=== PATIENT | female | born 1985 | race Caucasian/White ===

== ENCOUNTER → 2024-01-13 18:26 | Outpatient (REF) | payer OTHER, SELFPAY | LOC: MRI 3T 18:26 | PROVIDERS: ATTENDING PHYSICIAN Internal Medicine Medical Oncology; FAMILY PHYSICIAN Family Medicine | DX: C50.312 Malignant neoplasm of lower-inner quadrant of left female breast (principal); Z17.0 Estrogen receptor positive status [ER+] | CPT/HCPCS: 74183; A9575 ==

== ENCOUNTER → 2024-04-08 10:52 | Outpatient (REF) | payer OTHER, SELFPAY | LOC: RAD 10:52 | PROVIDERS: ATTENDING PHYSICIAN Family Medicine | DX: C79.9 Secondary malignant neoplasm of unspecified site (principal); M79.605 Pain in left leg | CPT/HCPCS: 72170; 73552 ==

== ENCOUNTER → 2024-05-10 15:00 | Outpatient (REF) | payer OTHER, SELFPAY | LOC: MRI 3T 15:00 | PROVIDERS: ATTENDING PHYSICIAN Student in an Organized Health Care Education/Training Program; FAMILY PHYSICIAN Family Medicine | DX: C50.312 Malignant neoplasm of lower-inner quadrant of left female breast (principal); Z17.0 Estrogen receptor positive status [ER+] | CPT/HCPCS: 74183; A9575 ==

== ENCOUNTER → 2024-05-14 12:38 | Outpatient (REF) | payer OTHER, SELFPAY | LOC: HWRAD 12:38 | PROVIDERS: ATTENDING PHYSICIAN Student in an Organized Health Care Education/Training Program; FAMILY PHYSICIAN Family Medicine | DX: C50.312 Malignant neoplasm of lower-inner quadrant of left female breast (principal); Z17.0 Estrogen receptor positive status [ER+]; C50.919 Malignant neoplasm of unspecified site of unspecified female breast; C78.7 Secondary malignant neoplasm of liver and intrahepatic bile duct | CPT/HCPCS: 71260; Q9967 ==

== ENCOUNTER → 2024-11-19 11:28 | Outpatient (REF) | payer OTHER, SELFPAY ==
[2024-11-19 12:02] LABS: % Basophils 0.1 % (0-2); % Immature Granulocytes 0.9 % (0-0.5); % Lymphocytes 2.8 % (20.5-51.1); % Monocytes 5.3 % (1.7-9.3); % Neutrophils 90.9 % (42.2-75.2); Absolute Immature Granulocytes 0.1 10^3/uL (0-0.05); Absolute Lymphocytes 0.4 10^3/uL (1.2-3.4); Absolute Monocytes 0.7 10^3/uL (0.1-0.6); Hematocrit 25.6 % (37.0-47.0); Hemoglobin 8.2 g/dL (12.0-16.0); Mean Corpuscular Volume 90.5 fL (81.0-99.0); Mean Platelet Volume 8.8 fL (7.4-10.4); Nucleated Red Blood Cells % 0 %; Platelet Count 503 10^3/uL (130-400); Red Blood Cell Count 2.83 10^6/uL (4.20-5.40); Red Cell Dist. Width 15.5 % (11.5-14.5); White Blood Cell Count 13.2 10^3/uL (4.8-10.8)
== END ==
LOC: REG 11:28
PROVIDERS: ATTENDING PHYSICIAN Radiology Radiation Oncology; FAMILY PHYSICIAN Family Medicine
DX: C79.51 Secondary malignant neoplasm of bone (principal)
CPT/HCPCS: 36415; 85025

== ENCOUNTER → 2024-11-25 12:51 | Outpatient (REF) | payer OTHER, SELFPAY ==
[2024-11-25 13:37] VITALS: BP 103/55; BP_SYST 100
[2024-11-25 14:50] VITALS: BP 104/68
[2024-11-25 16:39] LABS: Body Fluid Mononuclear 82.9 %; Body Fluid Polymorphonuclear 17.1 %; Body Fluid WBC 410 /CUMM
[2024-11-25 17:09] LABS: Body Fluid Second Tech DW
== END ==
LOC: RADI 12:51
PROVIDERS: ATTENDING PHYSICIAN Nurse Practitioner Adult Health; FAMILY PHYSICIAN Family Medicine
DX: C50.919 Malignant neoplasm of unspecified site of unspecified female breast (principal); R18.0 Malignant ascites
CPT/HCPCS: 88305; 49083; 88112; 88342; 89051

== ENCOUNTER 2024-11-30 08:06 | Inpatient (IN) | payer OTHER, SELFPAY ==
[2024-11-29] VITALS (40 sets, daily range): BP systolic 68–117; BP diastolic 58–85; BMI 21.9
[2024-11-29 13:26] LABS: ALT (SGPT) 44 U/L (0-35); AST (SGOT) 231 U/L (14-36); Albumin 3.1 g/dl (3.5-5.0); Blood Urea Nitrogen 28 mg/dl (7-17); Carbon Dioxide 23 mmol/L (22-30); Chloride 103 mmol/L (98-107); Glucose 101 mg/dl (70-99); Potassium 4.3 mmol/L (3.5-5.1); Total Protein 5.7 g/dl (6.3-8.2); eGFR > 60.00
[2024-11-29 13:45] LABS: Alkaline Phosphatase 955 U/L (38-126); Calcium 9.4 mg/dl (8.4-10.2); Sodium 134 mmol/L (135-145)
[2024-11-29 13:56] LABS: % Basophils 0.3 % (0-2); % Eosinophils 0.9 % (0-6); % Lymphocytes 3.7 % (20.5-51.1); % Monocytes 6.2 % (1.7-9.3); % Neutrophils 86.9 % (42.2-75.2); Absolute Eosinophils 0.1 10^3/uL (0-0.7); Absolute Immature Granulocytes 0.2 10^3/uL (0-0.05); Absolute Lymphocytes 0.4 10^3/uL (1.2-3.4); Absolute Monocytes 0.7 10^3/uL (0.1-0.6); Absolute Neutrophils 10.4 10^3/uL (1.4-6.5); Hematocrit 20.3 % (37.0-47.0); Hemoglobin 6.7 g/dL (12.0-16.0); Mean Corpuscular Hgb 29.1 pg (27.0-31.0); Mean Corpuscular Volume 88.3 fL (81.0-99.0); Mean Platelet Volume 8.5 fL (7.4-10.4); Nucleated Red Blood Cells % 0.4 %; Platelet Count 243 10^3/uL (130-400); Red Cell Dist. Width 15.5 % (11.5-14.5)
--- NOTE | 2024-11-29 14:44 | ED.GENMED ---
History of Present Illness
<Jennifer Mora PA-C - Last Filed: 11/29/24 21:09>
General
Chief Complaint: Abnormal Lab Value
Source: patient
Exam Limitations: none
Time Seen by Provider: 11/29/24 14:29
History of Present Illness
History of Present Illness:
38yoF with a history of metastatic breast cancer presenting for evaluation of anemia seen on outpatient labs. She follows Dr. Agustin, [facility]. Patient completed radiation treatment last week to her pelvis and L leg. She was scheduled to
start chemotherapy today. She had blood work done prior to the chemotherapy and her hemoglobin was 7.1. She was called and told to go to the ED for evaluation. Last blood work prior to this was on 11/15/2024 and hemoglobin was 8.9 at that time.
Patient denies any hematochezia or melena. She states she feels fatigued and exhausted. Patient also complains of abdominal distention and had a paracentesis performed 3 days ago for the first time.
Past History
<Jennifer Mora PA-C - Last Filed: 11/29/24 21:09>
Past History
ED Past Medical History: Cancer (Rectal CA, Left breast CA, Mets to liver ) and Other (Ovarian cysts,Headaches, IBS, UTI, )
ED Past Surgical History: Appendectomy, Bowel resection (Colostomy with reversal, Colon resection) and Gynecological (Ovarian cyst rupture, Hyserectomy)
Social History
Tobacco: Non-smoker
Alcohol: None
Drug: None
Personal:
Living: with family
Employment: Employed
Family History
Family History: Negative Hypertension or CAD
Phy Exam
<Jennifer Mora PA-C - Last Filed: 11/29/24 21:09>
Physical Exam
Physical Exam:
Chronically ill appearing female
General Physical Exam
General Presentation: no apparent distress
General Skin: warm, dry and pale
General Habitus: failure to thrive
General Mental: alert
ENT Exam
ENT Exam: normocephalic
Cardiovascular Exam
Cardiovascular Exam: regular rate/rhythm
Pulmonary Exam
Pulmonary Exam: lungs clear, no respiratory distress, no rales, no crackles, no rhonchi and no wheezing
Gastrointestinal Exam
Gastrointestinal Exam: other (Abdomen distended with ascites)
Neurological Exam
Neurological Exam: alert
[place] Coma Scale
Eye Opening: Spontaneous
Verbal Response: Oriented
Motor Response: Obeys Commands
GCS Total Score: 15
Skin Exam
Skin Exam: warm/dry and pallor
Psychiatric Exam
Psychiatric Exam: normal mood/affect
Course
<Jennifer Mora PA-C - Last Filed: 11/29/24 21:09>
Orders/Labs/Results
Orders:
Orders
11/29/24 13:01
Type+Screen Urgent
Complete Blood Count/With Diff Urgent
Comprehensive Metabolic Panel Urgent
11/29/24 15:09
Blood Bank Products [* Blood Bank Products] Urgent
Blood Bank Products: *Packed RBC Leuko(PRBC's)
Quantity: 2
Transfuse Today: Yes
Reason: Anemia
11/29/24 17:16
Cyclobenzaprine HCl [Flexeril] 10 mg PO NOW STA
Ketorolac [Toradol] 15 mg IV NOW STA
11/29/24 17:46
HYDROmorphone [Dilaudid] 1 mg IV NOW STA
11/29/24 18:41
Docusate W/Senna [Senokot-S] 2 tablet PO NOW STA
Gabapentin [Neurontin] 300 mg PO NOW STA
HYDROmorphone [Dilaudid] 6 mg PO NOW STA
Ketorolac [Toradol] 15 mg IV NOW STA
11/29/24 20:18
Lidocaine [Lidocaine 4% Patch] 1 patch TOPICAL ONCE ONE
Apply Lidocaine patch(s) to:: R flank
11/29/24 20:21
Morphine Sulfate 6 mg IV NOW STA
Abnormal Lab Results
11/29/24
13:01
WBC 12.0 H 10^3/uL
(4.8-10.8)
RBC 2.30 L 10^6/uL
(4.20-5.40)
Hgb 6.7 L* g/dL
(12.0-16.0)
Hct 20.3 L* %
(37.0-47.0)
RDW 15.5 H %
(11.5-14.5)
Abs Immat Gran (auto) 0.2 H 10^3/uL
(0-0.05)
Absolute Neuts (auto) 10.4 H 10^3/uL
(1.4-6.5)
Absolute Lymphs (auto) 0.4 L 10^3/uL
(1.2-3.4)
Absolute Monos (auto) 0.7 H 10^3/uL
(0.1-0.6)
Immature Gran % 2.0 H %
(0-0.5)
Neutrophils % 86.9 H %
(42.2-75.2)
Lymphocytes % 3.7 L %
(20.5-51.1)
Sodium 134 L mmol/L
(135-145)
BUN 28 H mg/dl
(7-17)
Glucose 101 H mg/dl
(70-99)
AST 231 H U/L
(14-36)
ALT 44 H U/L
(0-35)
Alkaline Phosphatase 955 H U/L
(38-126)
Total Protein 5.7 L g/dl
(6.3-8.2)
Albumin 3.1 L g/dl
(3.5-5.0)
Crossmatch IS Only See Detail
11/29/24 13:01
11/29/24 13:01
Vital Signs
Initial and Last Documented VS:
Initial Vital Signs
Temp Pulse Resp BP Pulse Ox
98.5 F 102 19 92/58 100
11/29/24 12:27 11/29/24 12:27 11/29/24 12:27 11/29/24 12:27 11/29/24 12:27
Last Documented Vital Signs
Temp Pulse Resp BP Pulse Ox
98.0 F 66 18 117/75 97
11/29/24 20:53 11/29/24 20:53 11/29/24 20:53 11/29/24 20:53 11/29/24 20:30
<Leeann Goode MD - Last Filed: 11/29/24 17:26>
Orders/Labs/Results
Orders:
Orders
11/29/24 13:01
Type+Screen Urgent
Complete Blood Count/With Diff Urgent
Comprehensive Metabolic Panel Urgent
11/29/24 15:09
Blood Bank Products [* Blood Bank Products] Urgent
Blood Bank Products: *Packed RBC Leuko(PRBC's)
Quantity: 2
Transfuse Today: Yes
Reason: Anemia
11/29/24 17:16
Cyclobenzaprine HCl [Flexeril] 10 mg PO NOW STA
Ketorolac [Toradol] 15 mg IV NOW STA
11/29/24 17:46
HYDROmorphone [Dilaudid] 1 mg IV NOW STA
11/29/24 18:41
Docusate W/Senna [Senokot-S] 2 tablet PO NOW STA
Gabapentin [Neurontin] 300 mg PO NOW STA
HYDROmorphone [Dilaudid] 6 mg PO NOW STA
Ketorolac [Toradol] 15 mg IV NOW STA
11/29/24 20:18
Lidocaine [Lidocaine 4% Patch] 1 patch TOPICAL ONCE ONE
Apply Lidocaine patch(s) to:: R flank
11/29/24 20:21
Morphine Sulfate 6 mg IV NOW STA
Abnormal Lab Results
11/29/24
13:01
WBC 12.0 H 10^3/uL
(4.8-10.8)
RBC 2.30 L 10^6/uL
(4.20-5.40)
Hgb 6.7 L* g/dL
(12.0-16.0)
Hct 20.3 L* %
(37.0-47.0)
RDW 15.5 H %
(11.5-14.5)
Abs Immat Gran (auto) 0.2 H 10^3/uL
(0-0.05)
Absolute Neuts (auto) 10.4 H 10^3/uL
(1.4-6.5)
Absolute Lymphs (auto) 0.4 L 10^3/uL
(1.2-3.4)
Absolute Monos (auto) 0.7 H 10^3/uL
(0.1-0.6)
Immature Gran % 2.0 H %
(0-0.5)
Neutrophils % 86.9 H %
(42.2-75.2)
Lymphocytes % 3.7 L %
(20.5-51.1)
Sodium 134 L mmol/L
(135-145)
BUN 28 H mg/dl
(7-17)
Glucose 101 H mg/dl
(70-99)
AST 231 H U/L
(14-36)
ALT 44 H U/L
(0-35)
Alkaline Phosphatase 955 H U/L
(38-126)
Total Protein 5.7 L g/dl
(6.3-8.2)
Albumin 3.1 L g/dl
(3.5-5.0)
Crossmatch IS Only See Detail
11/29/24 13:01
11/29/24 13:01
Vital Signs
Initial and Last Documented VS:
Initial Vital Signs
Temp Pulse Resp BP Pulse Ox
98.5 F 102 19 92/58 100
11/29/24 12:27 11/29/24 12:27 11/29/24 12:27 11/29/24 12:27 11/29/24 12:27
Last Documented Vital Signs
Temp Pulse Resp BP Pulse Ox
98.0 F 66 18 117/75 97
11/29/24 20:53 11/29/24 20:53 11/29/24 20:53 11/29/24 20:53 11/29/24 20:30
<Jennifer Mora PA-C - Last Filed: 11/29/24 21:09>
MDM/Problems Addressed
Differential Diagnosis Includes:
38yoF here for worsening anemia on outpatient labs. Hx of metastatic breast cancer followed by [facility]. Hb 7.1 on outpatient labs today. Prior baseline around 9. Denies hematochezia/melena. C/o severe fatigue. BP 92/58 in triage but normal
during my exam. She is chronically ill appearing and pale. Abdomen is distended and she has a history of ascites. Differential diagnosis includes but is not limited to: Anemia of chronic disease, anemia related to malignancy, doubt GI bleed
Repeat labs obtained in triage and hemoglobin is 6.7. I called and spoke with patient's oncologist via phone who is requesting 2 units PRBCs for transfusion. Consent obtained and transfusions ordered.
<Jennifer Mora PA-C - Last Filed: 11/29/24 21:09>
*Critical Care Note
Total Time (30-74mins, 75-104mins- exclusive of procedures): Not Applicable
<Jennifer Mora PA-C - Last Filed: 11/29/24 21:09>
Update Note
Update Note:
Patient tolerated transfusions well without any adverse reactions. Patient complaining of severe right flank pain throughout ED stay. states this is chronic for her related to liver metastases. She follows with [facility] and is
on multiple pain medications at home including fentanyl patches, Dilaudid 6-8 mg Q4 PRN, gabapentin, Aleve, and dexamethasone. Patient given multiple rounds of pain medications without any relief. She is requesting admission for pain control which
is reasonable. Patient also inquiring about repeat paracentesis. Will admit for further management.
ED Attending Note
<Jennifer Mora PA-C - Last Filed: 11/29/24 21:09>
-
Portions of this chart may have been created with voice recognition software.� Occasional wrong word or��sound alike� substitutions may have occurred due to the inherent limitations of voice recognition software.
<Leeann Goode MD - Last Filed: 11/29/24 17:26>
ED Attending Note
Patient seen and examined by attending physician: Yes
I performed the substantive portion of visit, reviewed & personally made and approve the management plan that is documented in note by myself or DISHA.: Yes
ED Attending Note:
38-year-old female presents emergency department after noted to be particularly anemic while getting 3 cancer treatment evaluation. She was referred to the ED for a transfusion. Our PA discussed with her attending and recommendation is 2 units of
blood and discharge. Patient is not in acute distress, pulse ox within normal, etc. No active bleeding reported. Patient is awake alert. She does have baseline abdominal distention and reports pain in the 'liver' area that radiates up to her
right anterior lower chest. She is taking medications through palliative care service for the symptoms and we are continuing them here.
Discharge Plan
Departure
Patient Disposition: Admit
Date of Disposition: 11/29/24
Time of Disposition: 21:02
Presentation/result/management discussed w/ accepting MD/DO: Hospitalist
Discharge Problem:
Intractable pain, Anemia, Abdominal ascites
Prescriptions:
No Action
hydroxyzine HCl 25 MG tablet
12.5 mg PO TID PRN (Reason: itching) Qty: 10 0RF
olanzapine 5 mg Tablet
5 mg PO HS
dexamethasone 4 mg Tablet
4 mg PO DAILY
Patient Comments:
on a taper dose
gabapentin 300 mg Capsule
300 mg PO TID PRN (Reason: pain)
fentanyl 37.5 mcg/hour Patch 72 Hour
1 patch TRANSDERMAL Q72H
hydrocodone-acetaminophen 1 TABLET tablet
1 tab PO Q4HPRN PRN (Reason: pain>11/04) Qty: 7 0RF
Rx Instructions:
take with stool softener
Referrals:
Vignesh Kraus MD [Family Provider] -
Interventions
Interventions:
*Risk Screen - Suicide Last Done: 11/29/24 12:29
*General Assessment Last Done: 11/29/24 12:29
*Neglect/Abuse Screening Last Done: 11/29/24 12:29
*ED- Fall Risk Assessment Last Done: 11/29/24 15:24
*ED COVID-19 Vaccine History Last Done: 11/29/24 15:24
Discharge Date and Time
Print Language: CENTRAL AFRICAN
[2024-11-29] MEDS: TORADOL 15 MG IV ×2 (17:21→18:52)
[2024-11-29] MEDS: FLEXERIL 10 MG PO (17:21)
[2024-11-29] MEDS: DILAUDID 1 MG IV (17:56)
[2024-11-29] MEDS: DILAUDID 6 MG PO (18:53)
[2024-11-29] MEDS: NEURONTIN 300 MG PO (18:54)
[2024-11-29] MEDS: SENOKOT-S 2 TABLET PO (18:54)
[2024-11-29] MEDS: LIDOCAINE 4% PATCH 1 PATCH TOPICAL (20:31)
[2024-11-29] MEDS: MORPHINE SULFATE 6 MG IV (20:35)
--- NOTE | 2024-11-29 22:44 | HPS.HSE ---
Family Physician
-
Family Physician: Vignesh Kraus
Chief Complaint
-
Abd Pain
History of Present Illness
Patient is a 38y F with PMH significant for metastatic breast cancer followed at [facility] who presents to ED for PRBC transfusion based on outpatient labs. Patient was scheduled to begin new infusion therapy this AM at [facility]. She was notified that her
blood counts were too low to undergo the infusion and was advised to present to the ED for blood transfusion.
Patient presented to ED and received 2 units of PRBCs. She was having pain in the RUQ / R flank area - which she notes is her chronic pain.
Pain was difficult to control in the ED and patient is referred for hospitalization for continued symptom control.
Patient has chronic malignant ascites for which she underwent paracentesis (for 1500cc) on 11/25/24. Patient states that she received temporary relief after paracentesis; however, abdominal distention and discomfort had returned by later that evening.
Medical History
Past Medical History
Past Medical History: Reports Other
Additional Past Medical History:
Metastatic Breast Cancer
Malignant Ascites
Rectosigmoid Cancer
Past Surgical History: Reports Other
Additional Past Surgical History:
Sigmoid Resection / Colostomy
Colostomy Reversal
Left Lumpectomy
Port Placement
Social History
Tobacco: Non-smoker
Alcohol: None
Drug: None
Family History
Family History: Not pertinent
Allergies / Home Medications
Allergies reflects when Allergies were last updated in [facility].
Home Medications with original date entered in [facility]
Allergy/Medication List:
Allergies
Allergy/AdvReac Type Severity Reaction Status Date / Time
fluorouracil Allergy Anaphylaxis Verified 10/16/22 18:03
paclitaxel [From Taxol] Allergy Rash Verified 10/16/22 18:03
Home Medications
dexamethasone 4 mg tablet 4 mg PO DAILY 11/25/24
fentanyl 37.5 mcg/hour transdermal patch 1 patch transdermal Q72H 11/25/24
gabapentin 300 mg capsule 300 mg PO TIDPRN PRN mild pain 11/25/24
olanzapine 5 mg tablet 2.5 mg PO HS 11/25/24
acetaminophen 500 mg tablet (Tylenol Extra Strength) 1,000 mg PO QIDPRN PRN mild pain 11/29/24
astaxanthin 4 mg capsule 4 mg PO DAILY 11/29/24
cyclobenzaprine 10 mg tablet 10 mg PO TID 11/29/24
docusate sodium 100 mg capsule (Colace) 100 mg PO DAILY 11/29/24
hydromorphone 4 mg tablet 6 - 8 mg PO Q4HPRN PRN severe pain 11/29/24
naproxen sodium 220 mg tablet (Aleve) 220 mg PO BIDPRN PRN mild pain 11/29/24
ondansetron HCl 8 mg tablet 8 mg PO Q8HPRN PRN nausea 11/29/24
oxycodone 5 mg tablet 5 mg PO Q6HPRN PRN severe pains 11/29/24
prochlorperazine maleate 10 mg tablet (Compazine) 10 mg PO BIDPRN PRN nausea 11/29/24
sennosides 8.6 mg tablet (senna) 8.6 mg PO BIDPRN PRN constipation 11/29/24
sumatriptan succinate 100 mg tablet (Imitrex) 0 mg PO .COMPLEX 11/29/24
therapeutic multivitamin 1 tab PO DAILY 11/29/24
tramadol 50 mg tablet 50 mg PO Q6HPRN PRN mpderate pain 11/29/24
Review of Systems
-
History Source: Patient
A 12 point ROS was completed and negative except as noted: Yes
Constitutional: Denies Fever or Chills
Respiratory: Denies Cough or Trouble Breathing
Cardiac: Denies Chest Pain or Palpitations
Abdomen/GI: Reports Abdominal Pain and Constipated; Denies Nausea, Vomiting or Diarrhea
: Reports Flank Pain; Denies Dysuria
Musculoskeletal: Denies Joint Pain or Edema
Neurological: Denies Dizzy or Headache
Psych: Denies Depression or Anxiety
Physical Exam
Vital Signs
Vital Signs
Temp Pulse Resp BP Pulse Ox
98.0 F 66 18 117/75 97
11/29/24 20:53 11/29/24 20:53 11/29/24 20:53 11/29/24 20:53 11/29/24 20:30
Physical Exam
General: Other (38y chronically ill-appearing F. Not in acute distress.)
HEENT: Moist mucous membranes and PERRLA
Respiratory: Other (Decreased at bases - otherwise clear.)
Cardiac: S1/S2 and Regular Rhythm; No Murmur
GI: Other (Abdomen is distended and tense. Palpable hepatomegaly / infiltration.)
Musculoskeletal: No Clubbing, No Cyanosis and No Edema
Neuro: AO x 3
Laboratory Results
-
11/29/24 13:01
11/29/24 13:01
Laboratory Results
Total Bilirubin 1.0 mg/dl (0.2-1.3) 11/29/24 13:01
AST 231 U/L (14-36) H 11/29/24 13:01
ALT 44 U/L (0-35) H 11/29/24 13:01
Alkaline Phosphatase 955 U/L (38-126) H 11/29/24 13:01
Impression/Plan
-
A/P: Patient is a 38y F with PMH significant for metastatic breast cancer who presents to ED for transfusion and had poorly controlled pain in the ED.
Metastatic Breast Cancer
Uncontrolled Pain of Malignancy
- Observe overnight for further evaluation and treatment.
- Continue efforts at pain management.
- Adjust med regimen as needed.
- Follow-up with Oncology at [facility] after discharge.
Anemia of Chronic Disease / Malignancy
- Hgb = 6.7 today compared to 8.2 last month and baseline of 12-13 prior to that.
- Received 2 units of PRBCs in the ED.
- Follow-up repeat H&H and consider additional transfusion if needed.
- Follow-up with Heme / Onc as noted above.
Hepatic Metastases
Peritoneal Carcinomatosis
Malignant Ascites
- s/p paracentesis on 11/25 for 1500cc of fluid.
- Increased abdominal distention / pain since that time.
- Will ask IR to re-evaluate - though not clear that significant ascites present for removal.
DVT Prophylaxis: Lovenox
Code Status: Full
[2024-11-30] VITALS: BP 103/65
[2024-11-30] MEDS: DURAGESIC 25 MCG/HR PATCH 1 PATCH TRANSDERM (01:01)
[2024-11-30] MEDS: DURAGESIC 12 MCG/HR PATCH 1 PATCH TRANSDERM (01:02)
[2024-11-30] MEDS: DILAUDID 6 MG PO ×2 (01:42→14:25)
[2024-11-30] MEDS: ZYPREXA 2.5 MG PO (01:42)
[2024-11-30] MEDS: FLEXERIL 10 MG PO ×2 (01:42→11:49)
[2024-11-30 02:00] VITALS: BP 110/70
[2024-11-30 04:24] VITALS: BMI 20.8
[2024-11-30 04:25] VITALS: BP 105/65
[2024-11-30] MEDS: SENOKOT 17.2 MG PO (06:02)
[2024-11-30] MEDS: MORPHINE SULFATE 2 MG IV ×2 (06:04→11:49)
[2024-11-30 07:00] VITALS: BP 100/65
--- NOTE | 2024-11-30 08:41 | VNURNOTE ---
Chart reviewed. Patient is current with [facility] nursing. Will continue to follow hospital course and DC plans.
--- NOTE | 2024-11-30 08:58 | W.PN.HOSP.TC ---
Today's Communication/Plan
-
dc
Assessment / Plan
Assessment / Plan
Physical Exam
General: Other (38y chronically ill-appearing F. Not in acute distress.)
HEENT: Moist mucous membranes and PERRLA
Respiratory: Other (Decreased at bases - otherwise clear.)
Cardiac: S1/S2 and Regular Rhythm; No Murmur
GI: Other (Abdomen is distended and tense. Palpable hepatomegaly / infiltration.)
Musculoskeletal: No Clubbing, No Cyanosis and No Edema
Neuro: AO x 3
psych: calm
Patient is a 38y F with PMH significant for metastatic breast cancer who presents to ED for transfusion and had poorly controlled pain in the ED.
Metastatic Breast Cancer
Uncontrolled Pain of Malignancy
- Continue efforts at pain management. She has regimen that is supervised by palliative care at home. Patient and wanted to keep current home pain management. Patient reported the pain improved after paracentesis
- They met with [facility] specialist Dr. Villalobos as a second opinion. Patient has been given the option to do outpatient follow-up after obtaining records.
- Adjust med regimen as needed.
- Follow-up with Oncology at [facility] after discharge. Patient and her wanted to go home after paracentesis. Patient has appointment tomorrow December 01 at [place] with oncology.
Currently palliative care to control her medications.
Anemia of Chronic Disease / Malignancy
- Hgb = 6.7 today compared to 8.2 last month and baseline of 12-13 prior to that.
- Received 2 units of PRBCs in the ED. rectal exam, no bleeding
- Follow-up repeat H&H and consider additional transfusion if needed.
- F no evidence of rectal or GI bleed
# Patient reported blood in underwear. Upon examination of pelvic exam and rectal exam, no evidence of bleeding. Noted half centimeter of skin abrasion/wound on right labia, possibly from shaving, healing well, probably causing on and off spotting
from rubbing with diaper.
Exam done in a private setting with female nurse help
Hepatic Metastases
Peritoneal Carcinomatosis
Malignant Ascites
- s/p paracentesis on 11/25 for 1500cc of fluid. Status post another paracentesis of 1700 mL of ascites fluid 11/30/24
# Hyponatremia, resolved. No confusion. Following commands
# Leukocytosis, reactive, no fever. Resolved
DVT Prophylaxis: Lovenox
Code Status: Full
total discharge time spent to see the patient, examine the patient, review data and lab result, discuss discharge plan with patient, , nursing staff around 65 minutes
Anticipated Discharge: Today
Subjective/Interval History
-
Date of Service: November 30, 2024
No chest pain
No sob
Abdominal discomfort is better after paracentesis
Objective Data
-
Labs:
Laboratory Results
11/30/24
07:57
WBC Pending
Hgb Pending
Hct Pending
Plt Count Pending
Sodium Pending
Potassium Pending
Chloride Pending
Carbon Dioxide Pending
BUN Pending
Creatinine Pending
Glucose Pending
Calcium Pending
Total Bilirubin Pending
AST Pending
ALT Pending
Alkaline Phosphatase Pending
Vital Signs:
Vital Signs
Temp Pulse Resp BP Pulse Ox
98.4 F 84 18 100/65 95
11/30/24 07:00 11/30/24 07:00 11/30/24 07:00 11/30/24 07:00 11/30/24 07:00
I&O
11/29/24 11/30/24 12/01/24
06:59 06:59 06:59
Intake Total 500 / 500
Balance 500 / 500
[2024-11-30] MEDS: NSS (PRESERVATIVE FREE) 10 ML IV (09:14)
[2024-11-30] MEDS: TORADOL 15 MG IV ×2 (09:15→15:37)
[2024-11-30] MEDS: PROTONIX IV 40 MG IV (09:15)
[2024-11-30] MEDS: NEURONTIN 300 MG PO ×2 (09:16→14:25)
[2024-11-30] MEDS: DECADRON 4 MG PO (09:16)
[2024-11-30] MEDS: COLACE 100 MG PO (09:16)
[2024-11-30 09:18] LABS: Hematocrit 27.8 % (37.0-47.0); Hemoglobin 9.2 g/dL (12.0-16.0); Mean Corp Hgb Conc. 33.1 g/dL (33.0-37.0); Mean Corpuscular Hgb 28.2 pg (27.0-31.0); Mean Corpuscular Volume 85.3 fL (81.0-99.0); Mean Platelet Volume 8.7 fL (7.4-10.4); Platelet Count 262 10^3/uL (130-400); Red Blood Cell Count 3.26 10^6/uL (4.20-5.40); Red Cell Dist. Width 17.3 % (11.5-14.5); White Blood Cell Count 10.5 10^3/uL (4.8-10.8)
[2024-11-30 09:21] LABS: ALT (SGPT) 42 U/L (0-35); AST (SGOT) 217 U/L (14-36); Albumin 3.2 g/dl (3.5-5.0); Alkaline Phosphatase 856 U/L (38-126); Blood Urea Nitrogen 22 mg/dl (7-17); Calcium 9.4 mg/dl (8.4-10.2); Carbon Dioxide 23 mmol/L (22-30); Chloride 105 mmol/L (98-107); Direct Bilirubin 0.9 mg/dl (0.0-0.4); Estimated Creatinine Clearance 113 ml/min; Glucose 90 mg/dl (70-99); Potassium 4.3 mmol/L (3.5-5.1); Sodium 135 mmol/L (135-145); Total Bilirubin 1.2 mg/dl (0.2-1.3); Total Protein 5.9 g/dl (6.3-8.2); eGFR > 60.00
[2024-11-30] MEDS: FLEXERIL PO (10:36)
--- NOTE | 2024-11-30 11:25 | CON.ONC ---
Addendum entered and electronically signed by Gagan Villalobos MD 11/30/24 11:55:
Examination was done but not reported. She seems clearheaded and fully oriented. The chest is clear. Heart tones are unremarkable. The abdomen is very distended, with pronounced hepatomegaly. The abdomen is tympanitic. There is no tenderness.
She has +1 edema bilaterally. Neurologic exam is grossly intact.
Original Note:
Impression
Impression
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
Ascites due to cancer
Anemia presumably due to recent radiation therapy to the pelvis and femur
History of rectal cancer
Plan
Plan
I reviewed her pain management regimen. It is a little confusing to me, sometimes 1 medication works for a week, then it does not, then another medication works and then stops working as well. She has gone up and down on her fentanyl patch. She
is seen by palliative care. In addition, she does various bowel regimens, with 1 regimen working well for a while, then another working for a while, then back to the original 1. I believe that her pain and bowel problems would be best managed in
conjunction with palliative care as an outpatient. I do not believe we need to keep her here for pain management.
Her hemoglobin is back up following transfusion. There is no evidence of GI blood loss. I believe that her anemia is indeed due to very large recent doses of radiation therapy to vital bone marrow organs. Will await interventional radiology
evaluation of her protuberant abdomen, some of this is massive hepatomegaly, I am not sure how much more fluid is left behind.
She inquired about a second opinion from [facility]. I told her we would be happy to do so, but I cannot do that at this time without full her records. I offered that she could get some of her treatments appears well, and she and her
will discuss this with her oncologist at [facility] tomorrow. I have no objections to discharge.
Patient History
History of Present Illness
Consult from the hospitalist service regarding breast cancer
This 38-year-old woman was admitted following transfusion in the emergency room. She was due to have a treatment with gemcitabine at [facility], but was told her hemoglobin, of about 6 g, was too low. She did get 2 units of packed
cells. She was still having some abdominal discomfort and was admitted for continued observation and possible adjustment of her pain medications. Her pain is relatively stable at this time. She employs various medications including ibuprofen,
Aleve, oxycodone, Dilaudid, as well as a fentanyl patch, currently at 37.5 mg. It was decreased from 50 mg a week ago due to problems that she is scribed to the increased dose of tremors in her hands.
She has been under treatment now for several years at the [facility] for breast cancer. Her last treatment by them was in July of this year, I am not certain exactly what that medication was. She was due to receive gemcitabine
today. She received unknown medications at an alternative clinic in [place] in late August and early September.
She admits to profound loss of muscle mass, her weight is difficult to determine due to apparent ascites and edema. She gets around with a wheelchair or crutches. She recently had a josh placed in her left femur as well as radiation therapy there
and to the pelvis.
Past-Medical/Surgical History
History of rectal cancer, treated surgically and with irinotecan based chemotherapy and radiation
More recent history of breast cancer, initially HER2 negative, now HER2 positive, status post various treatment regimens, including alternative therapy in [place] in September of this year.
Patient Medication
�Medication �Instructions �Recorded �Confirmed �Last Taken �Type
dexamethasone 4 mg tablet 4 mg PO DAILY Anti-Inflammatory 11/25/24 11/29/24 11/29/24 History
fentanyl 37.5 mcg/hour transdermal 1 patch transdermal Q72H Pain 11/25/24 11/29/24 11/29/24 History
patch
gabapentin 300 mg capsule 300 mg PO TIDPRN PRN mild pain 11/25/24 11/29/24 11/29/24 History
olanzapine 5 mg tablet 2.5 mg PO HS Mental Health/Anxiety 11/25/24 11/29/24 11/28/24 History
acetaminophen 500 mg tablet 1,000 mg PO QIDPRN PRN mild pain 11/29/24 11/29/24 11/29/24 History
(Tylenol Extra Strength)
astaxanthin 4 mg capsule 4 mg PO DAILY Supplement 11/29/24 11/29/24 Unknown History
cyclobenzaprine 10 mg tablet 10 mg PO TID Muscle Spasms 11/29/24 11/29/24 11/29/24 History
docusate sodium 100 mg capsule 100 mg PO DAILY Gastrointestinal 11/29/24 11/29/24 11/29/24 History
(Colace) Issue
hydromorphone 4 mg tablet 6 - 8 mg PO Q4HPRN PRN severe pain 11/29/24 11/29/24 Unknown History
naproxen sodium 220 mg tablet 220 mg PO BIDPRN PRN mild pain 11/29/24 11/29/24 11/29/24 History
(Aleve)
ondansetron HCl 8 mg tablet 8 mg PO Q8HPRN PRN nausea 11/29/24 11/29/24 Unknown History
oxycodone 5 mg tablet 5 mg PO Q6HPRN PRN severe pains 11/29/24 11/29/24 Unknown History
prochlorperazine maleate 10 mg 10 mg PO BIDPRN PRN nausea 11/29/24 11/29/24 Unknown History
tablet (Compazine)
sennosides 8.6 mg tablet (senna) 8.6 mg PO BIDPRN PRN constipation 11/29/24 11/29/24 Unknown History
sumatriptan succinate 100 mg 0 mg PO .COMPLEX Pain 11/29/24 11/29/24 Unknown History
tablet (Imitrex)
therapeutic multivitamin 1 tab PO DAILY Pain 11/29/24 11/29/24 Unknown History
tramadol 50 mg tablet 50 mg PO Q6HPRN PRN mpderate pain 11/29/24 11/29/24 Unknown History
Active Medications
Generic Name Dose Route Start Last Admin
Trade Name Freq PRN Reason Stop Dose Admin
Acetaminophen 650 mg 11/29/24 23:50
Acetaminophen 325 Mg Tablet PO 12/27/24 23:49
Q4HPRN PRN
Mild Pain / Temp > 101
Cyclobenzaprine HCl 10 mg 11/30/24 02:00 11/30/24 10:36
Cyclobenzaprine 10 Mg Tablet PO 12/28/24 01:59 Not Given
TID@0000,0800,1600 WIN
Dexamethasone 4 mg 11/30/24 08:00 11/30/24 09:16
Dexamethasone 4 Mg Tablet PO 12/28/24 07:59 4 mg
DAILY WIN Administration
Docusate Sodium 100 mg 11/30/24 08:00 11/30/24 09:16
Docusate Sodium 100 Mg Capsule PO 12/28/24 07:59 100 mg
BID WIN Administration
Enoxaparin Sodium 40 mg 11/30/24 18:00
Enoxaparin Sodium 40 Mg/0.4 Ml Syringe SC 12/28/24 17:59
QPM WIN
Fentanyl 1 patch 11/30/24 00:00 11/30/24 01:01
Fentanyl 25 Mcg/Hr Patch TRANSDERM 12/14/24 00:00 1 patch
Q72H WIN Administration
Fentanyl 1 patch 11/30/24 01:00 11/30/24 01:02
Fentanyl 12 Mcg/Hr Patch TRANSDERM 12/14/24 00:59 1 patch
Q72H WIN Administration
Gabapentin 300 mg 11/29/24 23:50 11/30/24 09:16
Gabapentin 300 Mg Capsule PO 12/27/24 23:49 300 mg
TIDPRN PRN Administration
mild pain
Heparin Sodium (Porcine) 500 unit 11/30/24 08:15
Heparin Flush Pf (100 Unit/Ml) 5 Ml Syringe IV 12/28/24 08:14
PER PROTOCOL WIN
Hydromorphone HCl 6 mg 11/29/24 23:50 11/30/24 01:42
Hydromorphone 2 Mg Tablet PO 12/13/24 23:49 6 mg
Q4HPRN PRN Administration
moderate pain
Ketorolac Tromethamine 15 mg 11/30/24 08:20 11/30/24 09:15
Ketorolac 15 Mg/Ml Injection IV 12/05/24 08:19 15 mg
Q6HPRN PRN Administration
mod to severe pain
Morphine Sulfate 2 mg 11/29/24 23:50 11/30/24 06:04
Morphine 2 Mg/Ml Syringe IV 12/13/24 23:49 2 mg
Q4HPRN PRN Administration
Severe Pain
Olanzapine 2.5 mg 11/30/24 02:00 11/30/24 01:42
Olanzapine 2.5 Mg Tablet PO 12/28/24 01:59 2.5 mg
HS WIN Administration
Ondansetron HCl 4 mg 11/29/24 23:50
Ondansetron 4 Mg/2 Ml Vial IV 12/27/24 23:49
Q6HPRN PRN
nausea and vomiting
Pantoprazole Sodium 40 mg 11/30/24 08:00 11/30/24 09:15
Pantoprazole Sodium 40 Mg/10 Ml Vial IV 12/28/24 07:59 40 mg
DAILY WIN Administration
Patch Removal 0 patch 11/30/24 00:00
Remove Fentanyl Patch REMOVE 12/14/24 00:00
Q72H WIN
Patch Removal 0 patch 11/30/24 00:00
Remove Fentanyl Patch REMOVE 12/14/24 00:00
Q72H WIN
Polyethylene Glycol 17 grams 11/29/24 23:50
Polyethylene Glycol Powder 17 Grams Packet PO 12/27/24 23:49
DAILY PRN
Constipation
Sennosides 17.2 mg 11/30/24 02:00 11/30/24 06:02
Sennosides (Senokot) 8.6 Mg Tablet PO 12/28/24 01:59 17.2 mg
HS WIN Administration
Sodium Chloride 0 flush 11/29/24 23:00
Sodium Chloride 0.9% (Flush) Syringe IV 12/27/24 22:59
PER PROTOCOL WIN
Sodium Chloride 10 ml 11/30/24 08:00 11/30/24 09:14
Sodium Chloride 0.9% (Preservative Free) 10 Ml Vial IV 12/28/24 07:59 10 ml
DAILY WIN Administration
Sumatriptan Succinate 100 mg 11/29/24 23:50
Sumatriptan (Imitrex) 50 Mg Tablet PO 12/27/24 23:49
DAILYPRN PRN
MIGRAINE
Review of Systems
-
All Other Systems: Reviewed and Negative
Physical Exam
Labs
Lab Results
WBC 10.5 10^3/uL (4.8-10.8) 11/30/24 07:57
RBC 3.26 10^6/uL (4.20-5.40) L 11/30/24 07:57
Hgb 9.2 g/dL (12.0-16.0) L D 11/30/24 07:57
Hct 27.8 % (37.0-47.0) L 11/30/24 07:57
MCV 85.3 fL (81.0-99.0) 11/30/24 07:57
MCH 28.2 pg (27.0-31.0) 11/30/24 07:57
MCHC 33.1 g/dL (33.0-37.0) 11/30/24 07:57
RDW 17.3 % (11.5-14.5) H 11/30/24 07:57
Plt Count 262 10^3/uL (130-400) 11/30/24 07:57
MPV 8.7 fL (7.4-10.4) 11/30/24 07:57
Abs Immat Gran (auto) 0.2 10^3/uL (0-0.05) H 11/29/24 13:01
Absolute Neuts (auto) 10.4 10^3/uL (1.4-6.5) H 11/29/24 13:01
Absolute Lymphs (auto) 0.4 10^3/uL (1.2-3.4) L 11/29/24 13:01
Absolute Monos (auto) 0.7 10^3/uL (0.1-0.6) H 11/29/24 13:01
Absolute Eos (auto) 0.1 10^3/uL (0-0.7) 11/29/24 13:01
Absolute Basos (auto) 0.0 10^3/uL (0-0.2) 11/29/24 13:01
Immature Gran % 2.0 % (0-0.5) H 11/29/24 13:01
Neutrophils % 86.9 % (42.2-75.2) H 11/29/24 13:01
Lymphocytes % 3.7 % (20.5-51.1) L 11/29/24 13:01
Monocytes % 6.2 % (1.7-9.3) 11/29/24 13:01
Eosinophils % 0.9 % (0-6) 11/29/24 13:01
Basophils % 0.3 % (0-2) 11/29/24 13:01
Creatinine 0.6 mg/dL (0.6-1.0) 11/30/24 07:57
Vital Signs
Vital Signs
Temp Pulse Resp BP Pulse Ox
98.4 F 84 18 100/65 95
11/30/24 07:00 11/30/24 07:00 11/30/24 07:00 11/30/24 07:00 11/30/24 07:00
[2024-11-30 12:39] VITALS: BP 112/74; BP_SYST 87
[2024-11-30 14:47] LABS: Body Fluid WBC 305 /CUMM
[2024-11-30 14:49] LABS: Body Fluid Mononuclear 76.1 %; Body Fluid Polymorphonuclear 23.9 %
[2024-11-30 15:00] VITALS: BP 108/67
--- NOTE | 2024-11-30 15:07 | CM ---
CM reviewed chart, patient seen bedside with and friend, initial assessment completed. Patient resides with her and two children in a one story home, four steps to enter. Patient has two walkers, a wheelchair, crutches, cane, raised
toilet/ bars in bathroom. [facility] with [facility] referral. Patient confirms PCP Vignesh Kraus, pharmacy [facility]. Plan for discharge today. CM will continue to follow for all discharge planning needs.
Plan; home with family, [facility]
[2024-11-30 15:13] LABS: Body Fluid Second Tech AMA
--- NOTE | 2024-11-30 17:35 | W.DCSUMMARY ---
Discharge Summary
Discharge Data
Date of Admission: 11/29/24
Date of Discharge: 11/30/24
-
Pending Results: No
Hospital Course
38 years old female with history of rectal cancer and stage IV breast cancer with metastasis to liver and bone presented with abdominal discomfort and anemia. Patient received 2 units of blood transfusion. Patient reported pain was not controlled
with her usual pain medication regimen that included fentanyl, Flexeril, oral Dilaudid, gabapentin at home. She was taking oral steroid also. She was under care of [facility] with radiation oncology and palliative care. Patient was admitted to
the hospital and received intravenous morphine which seemed to help. She was evaluated by IR and underwent another paracentesis with improvement. Patient felt better and was able to tolerate diet. Patient and her wanted to go home because
patient had an appointment on 12/01/24 with gynecology at [facility] for further management. They also requested oncology service consult. Oncologist saw the patient and recommended outpatient follow-up if to consider second opinion. Patient remained
hemodynamically stable. Patient was discharged home in a stable condition.
Discharge Plan
-
Patient Disposition: Home (Routine Discharge)
Discharge Diagnosis/Procedures: Malignant ascites status post paracentesis
Anemia, status post transfusion of 2 units
Diet: As tolerated
Referrals:
Vignesh Kraus MD [Family Provider] -
Prescriptions:
Continued
olanzapine 5 mg Tablet
2.5 mg PO HS
dexamethasone 4 mg Tablet
4 mg PO DAILY
gabapentin 300 mg Capsule
300 mg PO TIDPRN PRN (Reason: mild pain)
fentanyl 37.5 mcg/hour Patch 72 Hour
1 patch TRANSDERMAL Q72H
Patient Comments:
due to change 11/29/24
cyclobenzaprine 10 mg Tablet
10 mg PO TID
sennosides [senna] 8.6 mg Tablet
8.6 mg PO BIDPRN PRN (Reason: constipation)
sumatriptan succinate [Imitrex] 100 mg Tablet
0 mg PO .COMPLEX
Rx Instructions:
take 1 tab at onset of headache; if no relief, may repeat 1 tab after at least 2 hrs; max = 2 tabs/24 hrs
ondansetron HCl 8 mg Tablet
8 mg PO Q8HPRN PRN (Reason: nausea)
therapeutic multivitamin Tablet
1 tab PO DAILY
prochlorperazine maleate [Compazine] 10 mg Tablet
10 mg PO BIDPRN PRN (Reason: nausea)
tramadol 50 mg Tablet
50 mg PO Q6HPRN PRN (Reason: mpderate pain)
acetaminophen [Tylenol Extra Strength] 500 mg Tablet
1,000 mg PO QIDPRN PRN (Reason: mild pain)
naproxen sodium [Aleve] 220 mg Tablet
220 mg PO BIDPRN PRN (Reason: mild pain)
docusate sodium [Colace] 100 mg Capsule
100 mg PO DAILY
hydromorphone 4 mg Tablet
6 - 8 mg PO Q4HPRN PRN (Reason: severe pain)
oxycodone 5 mg Tablet
5 mg PO Q6HPRN PRN (Reason: severe pains)
astaxanthin 4 mg Capsule
4 mg PO DAILY
Discharge Orders:
Discharge Patient (As Directed); Ordered 11/30/24
Ordered By: Erin Estrella
Discharge Date and Time
Discharge Date/Time: 11/30/24 16:32
Print Language: MAORI
== END 2024-11-30 16:32 | disposition home or self-care (01) | DRG 597 ==
LOC: 4 WEST ACU 08:06
PROVIDERS: Radiology Diagnostic Radiology; Student in an Organized Health Care Education/Training Program; ADMITTING PHYSICIAN Hospitalist; ATTENDING PHYSICIAN Internal Medicine; EMERGENCY PHYSICIAN Emergency Medicine; FAMILY PHYSICIAN Family Medicine; OTHER PHYSICIAN Internal Medicine Hematology & Oncology
PROC: 30233N1 Transfusion of Nonautologous Red Blood Cells into Peripheral Vein, Percutaneous Approach (ICD-10-PCS; 2024-11-30)
PROC: 0W9G3ZZ Drainage of Peritoneal Cavity, Percutaneous Approach (ICD-10-PCS; 2024-11-30)
DX: C50.912 Malignant neoplasm of unspecified site of left female breast (principal); D61.2 Aplastic anemia due to other external agents; C78.7 Secondary malignant neoplasm of liver and intrahepatic bile duct; C79.51 Secondary malignant neoplasm of bone; R18.0 Malignant ascites; E87.1 Hypo-osmolality and hyponatremia; D63.8 Anemia in other chronic diseases classified elsewhere; T66.XXXA Radiation sickness, unspecified, initial encounter; Y84.2 Radiological procedure and radiotherapy as the cause of abnormal reaction of the patient, or of later complication, without mention of misadventure at the time of the procedure; Z85.048 Personal history of other malignant neoplasm of rectum, rectosigmoid junction, and anus
CPT/HCPCS: 36430; 49083; 80053; 82248; 85025; 85027; 86850; 86900; 86901; 86920; 87015; 87070; 87205; 89051; 96374; 96375; 96376; 99285; P9016

== ENCOUNTER → 2024-12-03 08:36 | Outpatient (REF) | payer OTHER, SELFPAY ==
[2024-12-03 08:54] VITALS: BP 101/62; BP_SYST 60
[2024-12-03 09:30] VITALS: BP 100/60; BP_SYST 16
[2024-12-03 10:48] LABS: Body Fluid Mononuclear 22.2 %; Body Fluid Polymorphonuclear 77.8 %; Body Fluid WBC 1187 /CUMM
[2024-12-03 10:51] LABS: Body Fluid Second Tech HB
== END ==
LOC: RADI 08:36
PROVIDERS: ATTENDING PHYSICIAN Nurse Practitioner Adult Health
DX: C80.1 Malignant (primary) neoplasm, unspecified (principal); R18.0 Malignant ascites
CPT/HCPCS: 49083; 89051

== ENCOUNTER → 2024-12-06 15:40 | Outpatient (REF) | payer OTHER, SELFPAY | LOC: RAD 15:40 | PROVIDERS: ATTENDING PHYSICIAN Nurse Practitioner Adult Health; FAMILY PHYSICIAN Family Medicine | DX: R60.9 Edema, unspecified (principal); C50.919 Malignant neoplasm of unspecified site of unspecified female breast; C78.7 Secondary malignant neoplasm of liver and intrahepatic bile duct | CPT/HCPCS: 93970 ==

== ENCOUNTER → 2024-12-07 13:43 | Outpatient (REF) | payer OTHER, SELFPAY ==
[2024-12-07 13:59] VITALS: BP_SYST 81
[2024-12-07 15:22] VITALS: BP 96/55
[2024-12-07 17:08] LABS: Body Fluid Mononuclear 73.2 %; Body Fluid Polymorphonuclear 26.8 %; Body Fluid WBC 168 /CUMM
[2024-12-07 17:23] LABS: Body Fluid Second Tech FB
== END ==
LOC: RADI 13:43
PROVIDERS: ATTENDING PHYSICIAN Nurse Practitioner Adult Health; FAMILY PHYSICIAN Family Medicine
DX: R18.8 Other ascites (principal)
CPT/HCPCS: 49083; 89051

== ENCOUNTER → 2024-12-10 08:31 | Outpatient (REF) | payer OTHER, SELFPAY ==
[2024-12-10 08:45] VITALS: BP 98/84; BP_SYST 77
[2024-12-10 09:45] VITALS: BP 99/53; BP_SYST 74
[2024-12-10 10:00] VITALS: BP 99/53
[2024-12-10 11:05] LABS: Body Fluid Mononuclear 45.9 %; Body Fluid Polymorphonuclear 54.1 %; Body Fluid WBC 155 /CUMM
[2024-12-10 11:09] LABS: Body Fluid Second Tech AMA
== END ==
LOC: RADI 08:31
PROVIDERS: ATTENDING PHYSICIAN Nurse Practitioner Adult Health; FAMILY PHYSICIAN Family Medicine
DX: C80.1 Malignant (primary) neoplasm, unspecified (principal); R18.0 Malignant ascites
CPT/HCPCS: 49083; 89051

== ENCOUNTER → 2024-12-14 13:08 | Outpatient (REF) | payer OTHER, SELFPAY ==
[2024-12-14 13:26] VITALS: BP 113/77; BP_SYST 95
== END ==
LOC: RADI 13:08
PROVIDERS: ATTENDING PHYSICIAN Nurse Practitioner Adult Health; FAMILY PHYSICIAN Family Medicine
DX: R18.8 Other ascites (principal); Z53.8 Procedure and treatment not carried out for other reasons
CPT/HCPCS: 76705

== ENCOUNTER → 2024-12-17 12:06 | Outpatient (REF) | payer OTHER, SELFPAY ==
[2024-12-17 12:25] VITALS: BP 104/58; BP_SYST 102
[2024-12-17 13:05] VITALS: BP 112/66
[2024-12-17 15:24] LABS: Body Fluid WBC 57 /CUMM
[2024-12-17 15:25] LABS: Body Fluid Mononuclear 91.3 %; Body Fluid Polymorphonuclear 8.7 %
[2024-12-17 15:53] LABS: Body Fluid Second Tech FB
== END ==
LOC: RADI 12:06
PROVIDERS: ATTENDING PHYSICIAN Nurse Practitioner Adult Health
DX: C80.1 Malignant (primary) neoplasm, unspecified (principal); R18.0 Malignant ascites
CPT/HCPCS: 49083; 89051

== ENCOUNTER → 2024-12-21 13:08 | Outpatient (REF) | payer OTHER, SELFPAY ==
[2024-12-21 13:28] VITALS: BP 94/57; BP_SYST 95
[2024-12-21 14:05] VITALS: BP 116/76; BP_SYST 94
[2024-12-21 15:17] LABS: Body Fluid WBC 135 /CUMM
[2024-12-21 15:35] LABS: Body Fluid Second Tech DW
== END ==
LOC: RADI 13:08
PROVIDERS: ATTENDING PHYSICIAN Nurse Practitioner Adult Health; FAMILY PHYSICIAN Family Medicine
DX: C80.1 Malignant (primary) neoplasm, unspecified (principal); R18.0 Malignant ascites
CPT/HCPCS: 49083; 89051

== ENCOUNTER → 2024-12-24 08:34 | Outpatient (REF) | payer OTHER, SELFPAY ==
[2024-12-24 09:09] VITALS: BP 97/64; BP_SYST 108
[2024-12-24 09:22] VITALS: BP 104/60
[2024-12-24 10:50] LABS: Body Fluid Mononuclear 72.5 %; Body Fluid Polymorphonuclear 27.5 %; Body Fluid WBC 178 /CUMM
[2024-12-24 10:54] LABS: Body Fluid Second Tech AMA
== END ==
LOC: RADI 08:34
PROVIDERS: ATTENDING PHYSICIAN Nurse Practitioner Adult Health
DX: C80.1 Malignant (primary) neoplasm, unspecified (principal); R18.0 Malignant ascites
CPT/HCPCS: 49083; 89051

== ENCOUNTER → 2024-12-28 13:03 | Outpatient (REF) | payer OTHER, SELFPAY ==
[2024-12-28 13:15] VITALS: BP 94/50; BP_SYST 107
[2024-12-28 14:20] VITALS: BP 104/58; BP_SYST 102
[2024-12-28 14:30] VITALS: BP 104/58
[2024-12-28 15:22] LABS: Body Fluid Mononuclear 69.1 %; Body Fluid Polymorphonuclear 30.9 %; Body Fluid WBC 110 /CUMM
[2024-12-28 15:23] LABS: Body Fluid Second Tech US
== END ==
LOC: RADI 13:03
PROVIDERS: ATTENDING PHYSICIAN Nurse Practitioner Adult Health; FAMILY PHYSICIAN Family Medicine
DX: R18.8 Other ascites (principal)
CPT/HCPCS: 49083; 89051

== ENCOUNTER → 2024-12-31 08:39 | Outpatient (REF) | payer OTHER, SELFPAY | LOC: RADI 08:39 | PROVIDERS: ATTENDING PHYSICIAN Nurse Practitioner Adult Health; FAMILY PHYSICIAN Family Medicine | DX: R18.8 Other ascites (principal); Z53.8 Procedure and treatment not carried out for other reasons | CPT/HCPCS: 76705 ==

== ENCOUNTER → 2025-01-04 08:24 | Outpatient (REF) | payer OTHER, SELFPAY ==
[2025-01-04 08:40] VITALS: BP 86/51; BP_SYST 107
[2025-01-04 09:15] VITALS: BP 95/61
[2025-01-04 10:48] LABS: Body Fluid Mononuclear 62.9 %; Body Fluid Polymorphonuclear 37.1 %; Body Fluid WBC 62 /CUMM
[2025-01-04 11:20] LABS: Body Fluid Second Tech CMB
== END ==
LOC: RADI 08:24
PROVIDERS: ATTENDING PHYSICIAN Nurse Practitioner Adult Health; FAMILY PHYSICIAN Family Medicine
DX: C80.1 Malignant (primary) neoplasm, unspecified (principal); R18.0 Malignant ascites
CPT/HCPCS: 49083; 89051

== ENCOUNTER → 2025-01-07 12:55 | Outpatient (REF) | payer OTHER, SELFPAY ==
[2025-01-07 13:09] VITALS: BP 88/48; BP_SYST 107
[2025-01-07 13:45] VITALS: BP 91/57
[2025-01-07 14:18] LABS: Body Fluid WBC 86 /CUMM
[2025-01-07 14:19] LABS: Body Fluid Second Tech EM
== END ==
LOC: RADI 12:55
PROVIDERS: ATTENDING PHYSICIAN Nurse Practitioner Adult Health
DX: R18.8 Other ascites (principal)
CPT/HCPCS: 49083; 89051

== ENCOUNTER → 2025-01-11 08:13 | Outpatient (REF) | payer OTHER, SELFPAY ==
[2025-01-11 08:24] VITALS: BP 84/53; BP_SYST 105
[2025-01-11 09:13] VITALS: BP 91/70
[2025-01-11 10:26] LABS: Body Fluid Mononuclear 94.2 %; Body Fluid Polymorphonuclear 5.8 %; Body Fluid WBC 86 /CUMM
[2025-01-11 11:05] LABS: Body Fluid Second Tech BGK
== END ==
LOC: RADI 08:13
PROVIDERS: ATTENDING PHYSICIAN Nurse Practitioner Adult Health; FAMILY PHYSICIAN Family Medicine
DX: C80.1 Malignant (primary) neoplasm, unspecified (principal); R18.0 Malignant ascites
CPT/HCPCS: 49083; 89051

== ENCOUNTER → 2025-01-14 08:27 | Outpatient (REF) | payer OTHER, SELFPAY ==
[2025-01-14 08:40] VITALS: BP 107/68; BP_SYST 87
[2025-01-14 09:39] VITALS: BP 99/54
[2025-01-14 10:23] LABS: Body Fluid Mononuclear 95.9 %; Body Fluid Polymorphonuclear 4.1 %; Body Fluid WBC 74 /CUMM
[2025-01-14 10:27] LABS: Body Fluid Second Tech HB
== END ==
LOC: RADI 08:27
PROVIDERS: Physician Assistant; ATTENDING PHYSICIAN Nurse Practitioner Adult Health; FAMILY PHYSICIAN Family Medicine
DX: C80.1 Malignant (primary) neoplasm, unspecified (principal); R18.0 Malignant ascites
CPT/HCPCS: 49083; 89051

== ENCOUNTER → 2025-01-18 07:58 | Outpatient (REF) | payer OTHER, SELFPAY ==
[2025-01-18 08:25] VITALS: BP 99/63; BP_SYST 100
[2025-01-18 08:36] LABS: % Basophils 0.8 % (0-2); % Immature Granulocytes 1.3 % (0-0.5); % Lymphocytes 4.1 % (20.5-51.1); % Monocytes 10.7 % (1.7-9.3); % Neutrophils 78.1 % (42.2-75.2); Absolute Basophils 0.1 10^3/uL (0-0.2); Absolute Eosinophils 0.3 10^3/uL (0-0.7); Absolute Immature Granulocytes 0.1 10^3/uL (0-0.05); Absolute Lymphocytes 0.3 10^3/uL (1.2-3.4); Absolute Monocytes 0.7 10^3/uL (0.1-0.6); Absolute Neutrophils 4.8 10^3/uL (1.4-6.5); Hematocrit 23.2 % (37.0-47.0); Hemoglobin 7.7 g/dL (12.0-16.0); Mean Corp Hgb Conc. 33.2 g/dL (33.0-37.0); Mean Corpuscular Hgb 30.4 pg (27.0-31.0); Mean Corpuscular Volume 91.7 fL (81.0-99.0); Mean Platelet Volume 8.6 fL (7.4-10.4); Nucleated Red Blood Cells % 0 %; Platelet Count 428 10^3/uL (130-400); Red Blood Cell Count 2.53 10^6/uL (4.20-5.40); Red Cell Dist. Width 23.9 % (11.5-14.5); White Blood Cell Count 6.2 10^3/uL (4.8-10.8)
[2025-01-18 08:51] LABS: Anisocytosis 1+; Hypochromasia 1+; Microcytosis Slight; Normal RBC Morphology No; Polychromasia Few
[2025-01-18 09:09] VITALS: BP 103/65
[2025-01-18 09:43] LABS: Body Fluid Mononuclear 87.3 %; Body Fluid Polymorphonuclear 12.7 %; Body Fluid WBC 63 /CUMM
[2025-01-18 09:44] LABS: Body Fluid Second Tech BGK
[2025-01-18 09:51] LABS: ALT (SGPT) 27 U/L (0-35); AST (SGOT) 116 U/L (14-36); Albumin 2.7 g/dl (3.5-5.0); Blood Urea Nitrogen 16 mg/dl (7-17); Calcium 8.9 mg/dl (8.4-10.2); Carbon Dioxide 26 mmol/L (22-30); Chloride 106 mmol/L (98-107); Glucose 105 mg/dl (70-99); Potassium 3.8 mmol/L (3.5-5.1); Sodium 135 mmol/L (135-145); Total Bilirubin 0.9 mg/dl (0.2-1.3); Total Protein 5.4 g/dl (6.3-8.2); eGFR > 60.00
[2025-01-18 09:59] LABS: Alkaline Phosphatase 1293 U/L (38-126)
== END ==
LOC: RADI 07:58
PROVIDERS: ATTENDING PHYSICIAN Nurse Practitioner Adult Health; FAMILY PHYSICIAN Family Medicine; REFERRING PHYSICIAN Internal Medicine Hematology & Oncology
DX: C20 Malignant neoplasm of rectum (principal); R18.0 Malignant ascites; C50.912 Malignant neoplasm of unspecified site of left female breast
CPT/HCPCS: 36415; 49083; 80053; 85025; 89051

== ENCOUNTER → 2025-01-21 13:38 | Outpatient (REF) | payer OTHER, SELFPAY ==
[2025-01-21 13:48] VITALS: BP 89/51; BP_SYST 94
[2025-01-21 14:35] VITALS: BP 102/68
[2025-01-21 16:26] LABS: Body Fluid Mononuclear 86.3 %; Body Fluid Polymorphonuclear 13.7 %; Body Fluid WBC 80 /CUMM
[2025-01-21 16:35] LABS: Body Fluid Second Tech FB
== END ==
LOC: RADI 13:38
PROVIDERS: ATTENDING PHYSICIAN Nurse Practitioner Adult Health; FAMILY PHYSICIAN Family Medicine; REFERRING PHYSICIAN Internal Medicine Hematology & Oncology
DX: C80.1 Malignant (primary) neoplasm, unspecified (principal); R18.0 Malignant ascites
CPT/HCPCS: 49083; 89051

== ENCOUNTER → 2025-01-25 08:32 | Outpatient (REF) | payer OTHER, SELFPAY ==
[2025-01-25 08:45] VITALS: BP 104/63; BP_SYST 110
[2025-01-25 09:29] VITALS: BP 90/52
[2025-01-25 10:43] LABS: Hematocrit 21.8 % (37.0-47.0); Hemoglobin 6.9 g/dL (12.0-16.0); Mean Corp Hgb Conc. 31.7 g/dL (33.0-37.0); Mean Corpuscular Volume 94.4 fL (81.0-99.0); Platelet Count 402 10^3/uL (130-400); Red Cell Dist. Width 23.8 % (11.5-14.5)
[2025-01-25 11:03] LABS: ALT (SGPT) 19 U/L (0-35); AST (SGOT) 69 U/L (14-36); Albumin 2.3 g/dl (3.5-5.0); Blood Urea Nitrogen 16 mg/dl (7-17); Calcium 8.6 mg/dl (8.4-10.2); Carbon Dioxide 25 mmol/L (22-30); Chloride 107 mmol/L (98-107); Glucose 94 mg/dl (70-99); Potassium 4.4 mmol/L (3.5-5.1); Sodium 136 mmol/L (135-145); Total Protein 4.7 g/dl (6.3-8.2); eGFR > 60.00
[2025-01-25 11:22] LABS: Alkaline Phosphatase 1089 U/L (38-126)
[2025-01-25 11:24] LABS: Body Fluid Second Tech CMB
[2025-01-25 12:08] LABS: Absolute Neutrophils -Man Diff 16.5 10^3/uL (1.4-6.5); Platelets Checked Yes
[2025-01-25 12:09] LABS: Anisocytosis 1+; Hypochromasia 1+; Normal RBC Morphology No; Polychromasia 1+
[2025-01-25 12:10] LABS: Ovalocytes FEW; Stomatocytes FEW; Total Cells Counted 100
== END ==
LOC: RADI 08:32
PROVIDERS: ATTENDING PHYSICIAN Nurse Practitioner Adult Health; REFERRING PHYSICIAN Internal Medicine Hematology & Oncology
DX: C50.912 Malignant neoplasm of unspecified site of left female breast (principal); R18.0 Malignant ascites
CPT/HCPCS: 36415; 49083; 80053; 85025; 89051

== ENCOUNTER 2025-01-25 19:34 | Observation (INO) | payer OTHER, SELFPAY ==
[2025-01-25] VITALS (10 sets, daily range): BP systolic 93–106; BP diastolic 56–68; BMI 20.7
--- NOTE | 2025-01-25 18:08 | ED.GENMED ---
History of Present Illness
General
Chief Complaint: Abnormal Lab Value
Source: patient and spouse
Exam Limitations: none
Time Seen by Provider: 01/25/25 17:22
Nursing documentation reviewed up to this point in time: agreed with
History of Present Illness
History of Present Illness:
Patient with history of metastatic breast cancer and chronic anemia, who presents to ED secondary to worsening generalized weakness over the past 3 to 4 days. Outpatient blood work this morning revealed recurrent anemia. Patient referred to ED for
an evaluation for blood transfusion. Patient denies bleeding. Denies headache. Denies dizziness. Denies shortness of breath. Denies nausea or vomiting. Denies recent change in medications or diet. Patient states that she is currently
receiving treatment for breast cancer, which is known to decrease hemoglobin. Patient has required blood transfusion in the past.
Past History
Past History
ED Past Medical History: Cancer (Rectal CA, Left breast CA, Mets to liver ) and Other (Ovarian cysts,Headaches, IBS, UTI, )
ED Past Surgical History: Appendectomy, Bowel resection (Colostomy with reversal, Colon resection) and Gynecological (Ovarian cyst rupture, Hyserectomy)
Social History
Tobacco: Non-smoker
Alcohol: None
Drug: None
Personal:
Living: with family
Employment: Employed
Family History
Family History: Negative Hypertension or CAD
Review of Systems
Review of Systems
Allergies reviewed?: Yes
All Other Systems: ROS reviewed and negative except as documented in HPI and ROS
Constitutional: Reports no symptoms; Denies fever
Respiratory: Reports no symptoms; Denies trouble breathing
Cardiac: Reports no symptoms; Denies chest pain or palpitations
ABD/GI: Reports no symptoms
: Reports no symptoms
Musculoskeletal: Reports no symptoms
Skin: Reports no symptoms
Neurological: Reports weakness
Phy Exam
Physical Exam
Physical Exam:
Physical Exam
General: mild distress, not acutely ill. afebrile
Head: nc/at. eomi
Neck: supple. normal range of motion.
Heart: s1/s2 regular rate and rhythm
Lungs: no acute respiratory distress. clear bilaterally
Abdomen: normal bowel sounds. ascites noted
Neuro: alert and oriented x 3. no focal neurological deficits
Skin: no rash
Psychiatric: well kept. interactive and cooperative
Extremities: no edema. no calf tenderness.
Course
Orders/Labs/Results
Orders:
Orders
01/25/25 16:41
Type And Crossmatch [Type+Screen] Urgent
Heparin Pf [Heparin Lock Flush] 500 unit .ROUTE .STK-MED ONE
01/25/25 18:08
* Blood Bank Products Urgent
Blood Bank Products: *Packed RBC Leuko(PRBC's)
Quantity: 2
Transfuse Today: Yes
Reason: Anemia
IV Insert/Care/Rem.- Treatment PRN
Vital Signs
Initial and Last Documented VS:
Initial Vital Signs
Temp Pulse Resp BP Pulse Ox
98.7 F 121 18 102/59 99
01/25/25 16:07 01/25/25 16:07 01/25/25 16:07 01/25/25 16:07 01/25/25 16:07
Last Documented Vital Signs
Temp Pulse Resp BP Pulse Ox
98.7 F 121 18 106/68 99
01/25/25 16:07 01/25/25 16:07 01/25/25 16:07 01/25/25 18:00 01/25/25 18:08
MDM/Problems Addressed
MDM/Problems Addressed:
History and exam concerning for symptomatic anemia. As such, blood transfusion ordered with consent on the chart. In light of patient's history of fluid overload on Lasix, patient will require close monitoring, with potential Lasix in between
transfusion units.
*Pulse Oximetry
SaO2: 99
Oxygen Mode of Delivery: Room air
ED Attending Note
-
Portions of this chart may have been created with voice recognition software.� Occasional wrong word or��sound alike� substitutions may have occurred due to the inherent limitations of voice recognition software.
Discharge Plan
Departure
Patient Disposition: Admit
Date of Disposition: 01/25/25
Time of Disposition: 18:15
Admit to: Med/Surg
Presentation/result/management discussed w/ accepting MD/DO: Hospitalist
Discharge Problem:
Symptomatic anemia, Ascites
Prescriptions:
No Action
olanzapine 5 mg Tablet
2.5 mg PO HS
dexamethasone 4 mg Tablet
4 mg PO DAILY
gabapentin 300 mg Capsule
300 mg PO TIDPRN PRN (Reason: mild pain)
cyclobenzaprine 10 mg Tablet
10 mg PO TID
sennosides [senna] 8.6 mg Tablet
8.6 mg PO BIDPRN PRN (Reason: constipation)
sumatriptan succinate [Imitrex] 100 mg Tablet
0 mg PO .COMPLEX
Rx Instructions:
take 1 tab at onset of headache; if no relief, may repeat 1 tab after at least 2 hrs; max = 2 tabs/24 hrs
ondansetron HCl 8 mg Tablet
8 mg PO Q8HPRN PRN (Reason: nausea)
therapeutic multivitamin Tablet
1 tab PO DAILY
prochlorperazine maleate [Compazine] 10 mg Tablet
10 mg PO BIDPRN PRN (Reason: nausea)
tramadol 50 mg Tablet
50 mg PO Q6HPRN PRN (Reason: mpderate pain)
acetaminophen [Tylenol Extra Strength] 500 mg Tablet
1,000 mg PO QIDPRN PRN (Reason: mild pain)
Patient Comments:
December 2024 new chemo tx [place] (2 weeks on, 1 week off)
naproxen sodium [Aleve] 220 mg Tablet
220 mg PO BIDPRN PRN (Reason: mild pain)
docusate sodium [Colace] 100 mg Capsule
100 mg PO DAILY
hydromorphone 4 mg Tablet
6 - 8 mg PO Q4HPRN PRN (Reason: severe pain)
oxycodone 5 mg Tablet
5 mg PO Q6HPRN PRN (Reason: severe pains)
astaxanthin 4 mg Capsule
4 mg PO DAILY
furosemide 20 mg Tablet
20 mg PO DAILY
fentanyl 12 mcg/hr Patch 72 Hour
1 patch TRANSDERMAL Q72H
diphenhydramine HCl [Benadryl] 50 mg/mL Solution
25 mg IM DAILY PRN (Reason: chemo)
Referrals:
Vignesh Kraus MD [Family Provider, Family Practice]
Interventions
Interventions:
*Risk Screen - Suicide Last Done: 01/25/25 16:07
*General Assessment Last Done: 01/25/25 17:14
*Neglect/Abuse Screening Last Done: 01/25/25 16:07
*ED- Fall Risk Assessment Last Done: 01/25/25 17:14
*ED COVID-19 Vaccine History Last Done: 01/25/25 17:14
Discharge Date and Time
Print Language: [place]
--- NOTE | 2025-01-25 18:21 | HPS.HSE ---
Family Physician
-
Family Physician: Vignesh Kraus
Chief Complaint
-
generalized weakness
History of Present Illness
Patient is a 39-year-old female with past medical history significant for metastatic breast cancer, malignant ascites and rectosigmoid cancer who presented to [facility] for evaluation and treatment s/p abnormal out patient labs and worsening generalized
weakness. Patient reports paracentesis this morning as normal with 1350cc out. She states she is currently more tired than normal and denies any other symptoms. She states this morning doctor recommended ED evaluation and treatment for blood
transfusion with abnormal out patient labs.
Medical History
Past Medical History
Past Medical History: Reports Other
Additional Past Medical History:
Metastatic Breast Cancer
Malignant Ascites
Rectosigmoid Cancer
Anemia of Chronic Disease / Malignancy
Past Surgical History: Reports Other
Additional Past Surgical History:
Sigmoid Resection / Colostomy
Colostomy Reversal
Left Lumpectomy
Port Placement
Social History
Tobacco: Non-smoker
Alcohol: None
Drug: None
Personal:
Living: With Family
Family History
Family History: Not pertinent
Allergies / Home Medications
Allergies reflects when Allergies were last updated in [facility].
Home Medications with original date entered in [facility]
Allergy/Medication List:
Allergies
Allergy/AdvReac Type Severity Reaction Status Date / Time
fluorouracil Allergy Anaphylaxis Verified 01/25/25 16:07
paclitaxel (From Taxol) Allergy Rash Verified 01/25/25 16:07
Home Medications
gabapentin 300 mg capsule 300 mg PO TIDPRN PRN mild pain 11/25/24
hydromorphone 4 mg tablet 4 mg PO TIDPRN PRN severe pain 11/29/24
naproxen sodium 220 mg tablet (Aleve) 440 mg PO HS 11/29/24
prochlorperazine maleate 10 mg tablet (Compazine) 10 mg PO Q8HPRN PRN nausea 11/29/24
sennosides 8.6 mg tablet (senna) 8.6 mg PO BIDPRN PRN constipation 11/29/24
therapeutic multivitamin 1 tab PO DAILY Pain 11/29/24
fentanyl 12 mcg/hr transdermal patch 1 patch transdermal Q72H 01/21/25
furosemide 20 mg tablet 20 mg PO DAILY 01/21/25
Benadryl 1 dose IV .SEE BELOW 01/25/25
Unknown Chemo Infusions 1 dose IV .SEE BELOW 01/25/25
astaxanthin 1 cap PO DAILY 01/25/25
bisacodyl 5 mg tablet,delayed release (Dulcolax (bisacodyl)) 5 - 10 mg PO DAILYPRN PRN constipation 01/25/25
bismuth subsalicylate 262 mg/15 mL oral suspension (Pepto-Bismol) 262 mg PO BIDPRN PRN stomach issues 01/25/25
calcium carbonate (Tums) 200 mg PO TID PRN gerd 01/25/25
cyclobenzaprine 5 mg tablet 5 mg PO Q8HPRN PRN muscle spasms 01/25/25
ibuprofen 200 mg tablet 600 - 800 mg PO BIDPRN PRN mild pain 01/25/25
loperamide 2 mg capsule 2 mg PO BIDPRN PRN diarrhea 01/25/25
loratadine 10 mg tablet (Claritin) 10 mg PO DIRECTED 01/25/25
magnesium hydroxide 400 mg/5 mL oral suspension (Milk of Magnesia) 60 ml PO DAILYPRN PRN constipation 01/25/25
olanzapine 5 mg disintegrating tablet 5 mg PO HS 01/25/25
sumatriptan succinate 100 mg tablet 0 mg PO .COMPLEX 01/25/25
Review of Systems
-
History Source: Patient
A 12 point ROS was completed and negative except as noted: Yes
Constitutional: Reports Fatigue; Denies Fever or Chills
Respiratory: Denies Cough or Trouble Breathing
Cardiac: Denies Chest Pain or Palpitations
Abdomen/GI: Reports Abdominal Pain and Constipated; Denies Nausea, Vomiting or Diarrhea
: Denies Dysuria
Musculoskeletal: Reports Edema (BLLE ); Denies Joint Pain
Neurological: Denies Dizzy or Headache
Psych: Denies Depression or Anxiety
Physical Exam
Vital Signs
Vital Signs
Temp Pulse Resp BP Pulse Ox
98.7 F 121 18 106/68 99
01/25/25 16:07 01/25/25 16:07 01/25/25 16:07 01/25/25 18:00 01/25/25 18:08
Physical Exam
General: Conversant and Appears Chronically Ill
HEENT: Moist mucous membranes and PERRLA
Respiratory: Clear and Decreased Breath Sounds (Decreased at bases )
Cardiac: S1/S2, Regular Rhythm and Tachycardia
GI: Soft and Distended
Musculoskeletal: No Clubbing, No Cyanosis, Edema, Left Lower Extremity and Edema, Right Lower Extremity
Neuro: AO x 3
Psych: Calm
Data Reviewed
-
Lab Data: Labs Reviewed by me (hgb 6.9, hct 21.8)
Impression/Plan
-
IMPRESSION/PLAN:
#Anemia of Chronic Disease / Malignancy
hgb 6.9, hct 21.8
- Admit to med/surg
- 2 units PRBCs
- trend H/H
- transfuse as indicated
- check iron studies in AM
#Metastatic Breast Cancer
follows with Oncology @ [facility]
- continue out patient medication regimen
- follow up with Oncology out patient
#Malignant Ascites
s/p paracentesis today 01/25/2025
1350 cc of clear yellow ascitic fluid was evacuated
- continue to follow with Heme/Onc post discharge
Code status: full code
DVT prophylaxis: lovenox sq
--- NOTE | 2025-01-25 18:57 | W.PN.UPDATE ---
Update Note
Progress Note Update
This is an addendum to H&P written by Shania Enamorado on 01/25/2025. Patient seen and examined independently with [employer] ENTRY CLERK.
39-year-old female past medical history of stage IV breast cancer with metastases to liver and bone, peritoneal carcinomatosis status post paracentesis twice a week on chemotherapy, rectosigmoid cancer, anemia of chronic disease, presenting for
generalized weakness. Outpatient labs after she underwent paracentesis today with drainage of 1350 cc show recurrent anemia. No bleeding. Also with lower extremity edema.
Vital signs show tachycardia.
Labs show hemoglobin 6.9. Leukocytosis of 18.
Patient with recurrent symptomatic anemia likely secondary to hemotherapy. 2 units of blood. Check iron studies, B12 and folate.
[2025-01-25] MEDS: FLEXERIL 5 MG PO (19:08)
[2025-01-25] MEDS: COMPAZINE 10 MG IV (19:10)
[2025-01-25] MEDS: DILAUDID 1 MG IV (19:17)
--- NOTE | 2025-01-25 22:00 | PTCARENOTE ---
Patient arrived to [facility] from ED on stretcher with first bag of PRBCs running. Patient AAOx3. Patient oriented to room, bed in lowest position, call ordonez within reach. Will continue to monitor.
[2025-01-25] MEDS: REMOVE DURAGESIC PATCH 1 PATCH REMOVE (22:25)
[2025-01-25] MEDS: DURAGESIC 12 MCG/HR PATCH 1 PATCH TRANSDERM (22:26)
[2025-01-25] MEDS: LASIX 20 MG IV (23:22)
[2025-01-25] MEDS: SENOKOT 8.6 MG PO (23:24)
[2025-01-25] MEDS: ZYPREXA ZYDIS (ORALLY DISINTEGRATING) 5 MG PO (23:24)
[2025-01-25] MEDS: NAPROSYN 500 MG PO (23:26)
[2025-01-26 00:15] VITALS: BP 93/58
[2025-01-26 00:22] VITALS: BP 93/58
[2025-01-26 00:31] VITALS: BP 91/53
[2025-01-26 03:45] VITALS: BP 101/50
[2025-01-26 05:23] LABS: Hematocrit 25.9 % (37.0-47.0); Hemoglobin 8.7 g/dL (12.0-16.0); Mean Corp Hgb Conc. 33.6 g/dL (33.0-37.0); Mean Corpuscular Volume 91.2 fL (81.0-99.0); Platelet Count 352 10^3/uL (130-400); Red Cell Dist. Width 20.0 % (11.5-14.5)
[2025-01-26 05:34] LABS: Blood Urea Nitrogen 14 mg/dl (7-17); Calcium 8.5 mg/dl (8.4-10.2); Carbon Dioxide 22 mmol/L (22-30); Chloride 108 mmol/L (98-107); Estimated Creatinine Clearance 114 ml/min; Glucose 72 mg/dl (70-99); Iron 124 ug/dl (37-170); Potassium 3.9 mmol/L (3.5-5.1); Sodium 134 mmol/L (135-145); eGFR > 60.00
[2025-01-26 05:44] LABS: Total Iron Binding Capacity 159 ug/dl (265-497)
[2025-01-26 06:10] LABS: Ferritin 535.0 ng/ml (6.24-137)
[2025-01-26 06:42] LABS: Folate 5.5 ng/ml (2.76-20); Vitamin B12 > 1000 pg/ml (239-931)
[2025-01-26 07:00] VITALS: BP 92/57
[2025-01-26] MEDS: SENOKOT 8.6 MG PO (08:01)
[2025-01-26] MEDS: THERAGRAN 1 TABLET PO (08:01)
[2025-01-26] MEDS: CLARITIN 10 MG PO (08:01)
[2025-01-26] MEDS: MIRALAX 17 GRAMS PO (08:02)
[2025-01-26] MEDS: LASIX 20 MG IV (10:30)
[2025-01-26] MEDS: FLUSH (NSS) 2 FLUSH IV (10:31)
--- NOTE | 2025-01-26 10:44 | CM ---
Addendum entered by Kemi Cohn 01/26/25 13:23:
Pt is cleared for discharge to home. She denies need for services after discharge and will f/u with her physicians as an outpatient.
Original Note:
past medical history of stage IV breast cancer with metastases to liver and bone, peritoneal carcinomatosis status post paracentesis twice a week on chemotherapy, rectosigmoid cancer, anemia of chronic disease, presenting for generalized weakness.
CM met with Tonya at bedside to complete IA.
Tonya lives with her and two children in a ranch style home with four entry steps.
Patient has two walkers, a wheelchair, crutches, cane, raised toilet with bars in bathroom.
Patient is known to [facility]S [facility] 234 BEDS AT THE [facility] in the past, but stopped responding to calls.
CM will continue to follow for all discharge planning needs.
PCP: Vignesh Kraus
Pharmacy: [facility]
[2025-01-26 11:44] VITALS: BMI 20.7
--- NOTE | 2025-01-26 12:16 | W.DCSUMMARY ---
Discharge Summary
Discharge Data
Date of Admission: 01/25/25
Date of Discharge: 01/26/25
-
Pending Results: No
Hospital Course
1-year-old female with past medical history significant for metastatic breast cancer, malignant ascites and rectosigmoid cancer
Presented with fatigue and generalized weakness. Found to have a hemoglobin of 6.9. Received 2 units of PRBCs with improvement of hemoglobin to 8.7. Between each blood transfusion received 1 dose of IV Lasix. Already on 20 mg of oral Lasix at
home. However, had persistent swelling of lower extremities and has not seen improvement on the 20 mg of oral Lasix. As blood pressure will allow we will increase her Lasix to 40 mg at home. If experience any dizziness shortness of breath low
blood pressure do not take any further Lasix dosing and consult with PCP/mess attendant/oncologist. With saying that if note weight gain of 3 pounds within 1 day or 5 pounds in 1 week then can take half a tab of 40 mg additional. Continue to
follow-up with interventional radiology for recurrent paracentesis. Continue follow-up with PCP and oncologist
Was seen on the day of discharge which was 01/26/2025. No new complaints. No acute overnight events.
Feeling better. Asking for additional dose of Lasix prior to discharge IV due to lower extremity swelling.
Upon my chart review noted that she had a DVT study November 2024. No DVT noted. There is bilateral lower extremity swelling without 1 side being more swollen than the other.
NAD
Scleral Anicteric
MMM
No JVD
CTABL
RRR, S1/S2
Soft, NT, ND, BS+
Protuberant abdomen, ascitic, umbilical hernia
Warm, Dry, lower extremity edema nonpitting
AAOx3
Calm
Discharge Plan
-
Patient Disposition: Home (Routine Discharge)
Discharge Diagnosis/Procedures: Symptomatic anemia
Condition: Good
Diet: As tolerated, Low Sodium, No added salt and Restrict fluids to 64 oz
Activity: As tolerated
Activity Restrictions/Additional Instructions:
Presented with fatigue and generalized weakness. Found to have a hemoglobin of 6.9. Received 2 units of PRBCs with improvement of hemoglobin to 8.7. Between each blood transfusion received 1 dose of IV Lasix. Already on 20 mg of oral Lasix at
home. However, had persistent swelling of lower extremities and has not seen improvement on the 20 mg of oral Lasix. As blood pressure will allow we will increase her Lasix to 40 mg at home. If experience any dizziness shortness of breath low
blood pressure do not take any further Lasix dosing and consult with PCP/mess attendant/oncologist. With saying that if note weight gain of 3 pounds within 1 day or 5 pounds in 1 week then can take half a tab of 40 mg additional. Continue to
follow-up with interventional radiology for recurrent paracentesis. Continue follow-up with PCP and oncologist
Referrals:
Vignesh Kraus MD [Family Provider, [facility]]
Traci Elizalde DO [Active, Hematology / Oncology] - in one to two weeks
Prescriptions:
Continued
gabapentin 300 mg Capsule
300 mg PO TIDPRN PRN (Reason: mild pain)
sennosides [senna] 8.6 mg Tablet
8.6 mg PO BIDPRN PRN (Reason: constipation)
therapeutic multivitamin Tablet
1 tab PO DAILY
prochlorperazine maleate [Compazine] 10 mg Tablet
10 mg PO Q8HPRN PRN (Reason: nausea)
naproxen sodium [Aleve] 220 mg Tablet
440 mg PO HS
hydromorphone 4 mg Tablet
4 mg PO TIDPRN PRN (Reason: severe pain)
fentanyl 12 mcg/hr Patch 72 Hour
1 patch TRANSDERMAL Q72H
Patient Comments:
01/25/2025, pt. applied new patch yesterday (01/24/2025) and is currently wearing it on their right arm.
loperamide 2 mg Capsule
2 mg PO BIDPRN PRN (Reason: diarrhea)
sumatriptan succinate 100 mg Tablet
0 mg PO .COMPLEX
Patient Comments:
01/25/2025, pt. normally starts by taking 0.5 tablet.
Rx Instructions:
Take 1 tablet by mouth at start of migraine. May repeat in 2 hours.
magnesium hydroxide [Milk of Magnesia] 400 mg/5 mL Suspension
60 ml PO DAILYPRN PRN (Reason: constipation)
bismuth subsalicylate [Pepto-Bismol] 262 mg/15 mL Suspension
262 mg PO BIDPRN PRN (Reason: stomach issues)
calcium carbonate [Tums] 200 mg calcium (500 mg) Tablet,Chewable
200 mg PO TID PRN (Reason: gerd)
ibuprofen 200 mg Tablet
600 - 800 mg PO BIDPRN PRN (Reason: mild pain)
loratadine [Claritin] 10 mg Tablet
10 mg PO DIRECTED
Patient Comments:
01/25/2025, pt. takes Claritin for one week (off-week) following 2-week course of chemo that she receives at [facility].
olanzapine 5 mg Tablet,Disintegrating
5 mg PO HS
cyclobenzaprine 5 mg Tablet
5 mg PO Q8HPRN PRN (Reason: muscle spasms)
Benadryl
1 dose IV .SEE BELOW
Patient Comments:
01/25/2025, pt. gets IV infusion of this med. during her chemo infusions.
Unknown Chemo Infusions
1 dose IV .SEE BELOW
Patient Comments:
01/25/2025, pt. gets chemo infusions through [facility]; could not confirm names, doses, and frequencies with [facility] at time of interview.
astaxanthin
1 cap PO DAILY
bisacodyl [Dulcolax (bisacodyl)] 5 mg Tablet,Delayed Release (Dr/Ec)
5 - 10 mg PO DAILYPRN PRN (Reason: constipation)
Changed
furosemide 20 mg Tablet
40 mg PO DAILY Qty: 30 0RF
Discharge Orders:
Discharge Patient (As Directed); Ordered 01/26/25
Ordered By: Edward Zaidi
Discharge Date and Time
Print Language: SWAZI
[2025-01-26 14:28] VITALS: BP 99/61
[2025-01-26] MEDS: TUMS CHEWABLE TABLET 200 MG PO (15:19)
== END 2025-01-26 15:45 | disposition home or self-care (01) ==
LOC: 3 WEST ACU 19:34
PROVIDERS: Nurse Practitioner Family; ADMITTING PHYSICIAN Hospitalist; ATTENDING PHYSICIAN Hospitalist; EMERGENCY PHYSICIAN Emergency Medicine; FAMILY PHYSICIAN Family Medicine
PROC: 30233N1 Transfusion of Nonautologous Red Blood Cells into Peripheral Vein, Percutaneous Approach (ICD-10-PCS; 2025-01-25)
DX: M79.89 Other specified soft tissue disorders (principal); D63.8 Anemia in other chronic diseases classified elsewhere; R53.1 Weakness; R18.0 Malignant ascites; C50.919 Malignant neoplasm of unspecified site of unspecified female breast
CPT/HCPCS: 36415; 36430; 49083; 80048; 80053; 82607; 82728; 82746; 83540; 83550; 85025; 85027; 86850; 86900; 86901; 86920; 89051; 96374; 99285; P9016

== ENCOUNTER → 2025-01-27 12:42 | Outpatient (REF) | payer OTHER, SELFPAY ==
[2025-01-27 13:30] LABS: Hematocrit 28.1 % (37.0-47.0); Hemoglobin 9.4 g/dL (12.0-16.0); Mean Corp Hgb Conc. 33.5 g/dL (33.0-37.0); Mean Corpuscular Volume 91.8 fL (81.0-99.0); Platelet Count 378 10^3/uL (130-400); Red Cell Dist. Width 21.4 % (11.5-14.5)
[2025-01-27 13:49] VITALS: BP 100/68; BP_SYST 113
[2025-01-27 14:15] VITALS: BP 98/67
[2025-01-27 15:13] LABS: Absolute Neutrophils -Man Diff 31.3 10^3/uL (1.4-6.5); Platelets Checked Yes
[2025-01-27 15:14] LABS: Total Cells Counted 100
[2025-01-27 15:15] LABS: Anisocytosis 1+; Hypochromasia 1+; Macrocytosis 1+; Normal RBC Morphology No; Ovalocytes 1+
[2025-01-27 15:28] LABS: Body Fluid Second Tech HB
== END ==
LOC: RADI 12:42
PROVIDERS: ATTENDING PHYSICIAN Nurse Practitioner Adult Health; FAMILY PHYSICIAN Family Medicine; OTHER PHYSICIAN Internal Medicine Hematology & Oncology
DX: R18.8 Other ascites (principal)
CPT/HCPCS: 36415; 49083; 85025; 86850; 86900; 86901; 89051

== ENCOUNTER → 2025-01-31 12:25 | Outpatient (REF) | payer OTHER, SELFPAY ==
[2025-01-31 12:48] VITALS: BP 104/67; BP_SYST 108
[2025-01-31 13:30] VITALS: BP 93/57
[2025-01-31 15:10] LABS: Body Fluid Second Tech CMB
== END ==
LOC: RADI 12:25
PROVIDERS: ATTENDING PHYSICIAN Nurse Practitioner Adult Health; FAMILY PHYSICIAN Family Medicine; REFERRING PHYSICIAN Internal Medicine Hematology & Oncology
DX: C80.1 Malignant (primary) neoplasm, unspecified (principal); R18.0 Malignant ascites
CPT/HCPCS: 49083; 89051

== ENCOUNTER → 2025-02-04 13:17 | Outpatient (REF) | payer OTHER, SELFPAY ==
[2025-02-04 13:36] VITALS: BP 104/72; BP_SYST 95
[2025-02-04 14:25] VITALS: BP 94/57
[2025-02-04 15:06] LABS: Body Fluid Second Tech BGK
== END ==
LOC: RADI 13:17
PROVIDERS: ATTENDING PHYSICIAN Nurse Practitioner Adult Health; FAMILY PHYSICIAN Family Medicine
DX: R18.8 Other ascites (principal)
CPT/HCPCS: 49083; 89051

== ENCOUNTER → 2025-02-07 12:19 | Outpatient (REF) | payer OTHER, SELFPAY ==
[2025-02-07 12:40] VITALS: BP 111/73; BP_SYST 100
[2025-02-07 13:35] VITALS: BP 97/57
[2025-02-07 14:33] LABS: Body Fluid Second Tech AMA
== END ==
LOC: RADI 12:19
PROVIDERS: ATTENDING PHYSICIAN Nurse Practitioner Adult Health; FAMILY PHYSICIAN Family Medicine
DX: C80.1 Malignant (primary) neoplasm, unspecified (principal); R18.0 Malignant ascites
CPT/HCPCS: 49083; 89051

== ENCOUNTER → 2025-02-08 16:25 | Outpatient (REF) | payer OTHER, SELFPAY ==
[2025-02-08 17:12] LABS: Hematocrit 22.6 % (37.0-47.0); Hemoglobin 7.3 g/dL (12.0-16.0); Mean Corp Hgb Conc. 32.3 g/dL (33.0-37.0); Mean Corpuscular Volume 93.8 fL (81.0-99.0); Nucleated Red Blood Cells % 0.2 %; Platelet Count 170 10^3/uL (130-400); Red Cell Dist. Width 19.5 % (11.5-14.5)
[2025-02-08 17:39] LABS: ALT (SGPT) 26 U/L (0-35); AST (SGOT) 92 U/L (14-36); Albumin 2.2 g/dl (3.5-5.0); Blood Urea Nitrogen 16 mg/dl (7-17); Calcium 7.9 mg/dl (8.4-10.2); Carbon Dioxide 26 mmol/L (22-30); Chloride 106 mmol/L (98-107); Glucose 89 mg/dl (70-99); Potassium 3.2 mmol/L (3.5-5.1); Sodium 135 mmol/L (135-145); Total Protein 4.3 g/dl (6.3-8.2); eGFR > 60.00
[2025-02-08 17:48] LABS: Alkaline Phosphatase 1215 U/L (38-126)
== END ==
LOC: REG 16:25
PROVIDERS: ATTENDING PHYSICIAN Internal Medicine Hematology & Oncology; FAMILY PHYSICIAN Family Medicine
DX: C20 Malignant neoplasm of rectum (principal); D50.9 Iron deficiency anemia, unspecified; C50.912 Malignant neoplasm of unspecified site of left female breast; C78.7 Secondary malignant neoplasm of liver and intrahepatic bile duct; C79.51 Secondary malignant neoplasm of bone; C78.00 Secondary malignant neoplasm of unspecified lung
CPT/HCPCS: 36415; 80053; 85025

== ENCOUNTER → 2025-02-11 07:01 | Outpatient (REF) | payer OTHER, SELFPAY ==
[2025-02-11 07:15] VITALS: BP 109/68; BP_SYST 98
[2025-02-11 08:06] VITALS: BP 108/72; BP_SYST 98
[2025-02-11 08:20] VITALS: BP 108/72
[2025-02-11 09:30] LABS: Body Fluid Second Tech AMA
== END ==
LOC: RADI 07:01
PROVIDERS: ATTENDING PHYSICIAN Nurse Practitioner Adult Health; FAMILY PHYSICIAN Family Medicine
DX: C80.1 Malignant (primary) neoplasm, unspecified (principal); R18.0 Malignant ascites
CPT/HCPCS: 49083; 89051

== ENCOUNTER 2025-02-11 08:29 | Outpatient (RCR) | payer OTHER, SELFPAY ==
[2025-02-10 16:40] LABS: Urine Character Slightly Cloudy (Clear)
[2025-02-10 17:42] LABS: Urine Red Blood Cell 0-2 /HPF (0-2); Urine Urothelial Cell 0-2 /LPF (FEW)
[2025-02-11 09:01] VITALS: BP 105/67
[2025-02-11 09:19] VITALS: BP 111/70
[2025-02-11 11:31] VITALS: BP 102/66
== END 2025-02-24 23:59 | disposition home or self-care (01) ==
LOC: OID 08:29
PROVIDERS: ATTENDING PHYSICIAN Internal Medicine Hematology & Oncology
DX: C20 Malignant neoplasm of rectum (principal); C78.5 Secondary malignant neoplasm of large intestine and rectum; C78.7 Secondary malignant neoplasm of liver and intrahepatic bile duct; C50.912 Malignant neoplasm of unspecified site of left female breast; C79.51 Secondary malignant neoplasm of bone; C78.00 Secondary malignant neoplasm of unspecified lung; Z17.0 Estrogen receptor positive status [ER+]
CPT/HCPCS: 36415; 36430; 49083; 81003; 81015; 86850; 86870; 86900; 86901; 86902; 86905; 86920; 86922; 87086; 89051; P9016

== ENCOUNTER → 2025-02-14 12:24 | Outpatient (REF) | payer OTHER, SELFPAY ==
[2025-02-14 12:54] VITALS: BP 89/52; BP_SYST 101
[2025-02-14 13:36] VITALS: BP 109/72
[2025-02-14 14:57] LABS: Body Fluid Second Tech ASW
== END ==
LOC: RADI 12:24
PROVIDERS: ATTENDING PHYSICIAN Nurse Practitioner Adult Health; FAMILY PHYSICIAN Family Medicine; REFERRING PHYSICIAN Internal Medicine Hematology & Oncology
DX: C80.1 Malignant (primary) neoplasm, unspecified (principal); R18.0 Malignant ascites
CPT/HCPCS: 49083; 89051

== ENCOUNTER → 2025-02-18 13:40 | Outpatient (REF) | payer OTHER, SELFPAY ==
[2025-02-18 13:58] VITALS: BP 109/74; BP_SYST 111
[2025-02-18 14:34] VITALS: BP 99/56
[2025-02-18 16:27] LABS: Body Fluid Second Tech EYM
== END ==
LOC: RADI 13:40
PROVIDERS: ATTENDING PHYSICIAN Nurse Practitioner Adult Health; FAMILY PHYSICIAN Family Medicine
DX: C80.1 Malignant (primary) neoplasm, unspecified (principal); R18.0 Malignant ascites
CPT/HCPCS: 49083; 89051

== ENCOUNTER → 2025-02-21 13:26 | Outpatient (REF) | payer OTHER, SELFPAY ==
[2025-02-21 13:36] VITALS: BP 106/73; BP_SYST 104
[2025-02-21 14:22] VITALS: BP 94/60
[2025-02-21 15:09] LABS: Body Fluid Second Tech EM
[2025-02-21 15:25] LABS: ALT (SGPT) 19 U/L (0-35); AST (SGOT) 49 U/L (14-36); Albumin 2.3 g/dl (3.5-5.0); Alkaline Phosphatase 1191 U/L (38-126); Blood Urea Nitrogen 10 mg/dl (7-17); Calcium 7.8 mg/dl (8.4-10.2); Carbon Dioxide 28 mmol/L (22-30); Chloride 106 mmol/L (98-107); Glucose 94 mg/dl (70-99); Potassium 3.9 mmol/L (3.5-5.1); Sodium 136 mmol/L (135-145); Total Protein 4.5 g/dl (6.3-8.2); eGFR > 60.00
[2025-02-21 15:54] LABS: Hematocrit 26.6 % (37.0-47.0); Hemoglobin 8.5 g/dL (12.0-16.0); Mean Corp Hgb Conc. 32.0 g/dL (33.0-37.0); Mean Corpuscular Volume 93.7 fL (81.0-99.0); Platelet Count 255 10^3/uL (130-400); Red Cell Dist. Width 18.8 % (11.5-14.5)
[2025-02-21 15:59] LABS: Absolute Neutrophils -Man Diff 41.8 10^3/uL (1.4-6.5)
[2025-02-21 16:00] LABS: Anisocytosis 2+; Macrocytosis 1+; Microcytosis 1+; Normal RBC Morphology No; Platelets Checked Yes; Total Cells Counted 100
[2025-02-21 16:01] LABS: Hypochromasia 3+
== END ==
LOC: RADI 13:26
PROVIDERS: ATTENDING PHYSICIAN Nurse Practitioner Adult Health; REFERRING PHYSICIAN Internal Medicine Hematology & Oncology
DX: C20 Malignant neoplasm of rectum (principal); R18.0 Malignant ascites
CPT/HCPCS: 36415; 49083; 80053; 82248; 85025; 89051

== ENCOUNTER → 2025-02-25 13:41 | Outpatient (REF) | payer OTHER, SELFPAY ==
[2025-02-25 13:56] VITALS: BP 107/68; BP_SYST 88
[2025-02-25 14:33] VITALS: BP 96/55
[2025-02-25 15:52] LABS: Body Fluid Second Tech DW
== END ==
LOC: RADI 13:41
PROVIDERS: ATTENDING PHYSICIAN Nurse Practitioner Adult Health; FAMILY PHYSICIAN Family Medicine
DX: C80.1 Malignant (primary) neoplasm, unspecified (principal); R18.0 Malignant ascites
CPT/HCPCS: 49083; 89051

== ENCOUNTER → 2025-03-04 14:05 | Outpatient (REF) | payer OTHER, SELFPAY ==
[2025-03-04 14:30] VITALS: BP 114/71; BP_SYST 90
[2025-03-04 15:08] VITALS: BP 101/58
[2025-03-04 17:41] LABS: Body Fluid Second Tech FB
== END ==
LOC: RADI 14:05
PROVIDERS: ATTENDING PHYSICIAN Nurse Practitioner Adult Health; FAMILY PHYSICIAN Family Medicine
DX: C80.1 Malignant (primary) neoplasm, unspecified (principal); R18.0 Malignant ascites
CPT/HCPCS: 49083; 89051

== ENCOUNTER 2025-03-04 15:32 | Emergency (ER) | payer OTHER, SELFPAY ==
[2025-03-04] VITALS (12 sets, daily range): BP systolic 102–111; BP diastolic 63–74
[2025-03-04 15:55] LABS: Hematocrit 22.6 % (37.0-47.0); Hemoglobin 7.4 g/dL (12.0-16.0); Mean Corp Hgb Conc. 32.7 g/dL (33.0-37.0); Mean Corpuscular Volume 93.8 fL (81.0-99.0); Nucleated Red Blood Cells % 0 %; Platelet Count 169 10^3/uL (130-400); Red Cell Dist. Width 18.4 % (11.5-14.5)
[2025-03-04 16:25] LABS: ALT (SGPT) 34 U/L (0-35); AST (SGOT) 81 U/L (14-36); Albumin 2.7 g/dl (3.5-5.0); Alkaline Phosphatase 1069 U/L (38-126); Blood Urea Nitrogen 10 mg/dl (7-17); Calcium 8.5 mg/dl (8.4-10.2); Carbon Dioxide 22 mmol/L (22-30); Chloride 112 mmol/L (98-107); Glucose 139 mg/dl (70-99); Potassium 4.1 mmol/L (3.5-5.1); Sodium 137 mmol/L (135-145); Total Protein 5.1 g/dl (6.3-8.2); eGFR > 60.00
--- NOTE | 2025-03-04 18:37 | ED.GENMED ---
History of Present Illness
General
Chief Complaint: Abnormal Lab Value
Source: patient
Exam Limitations: none
Time Seen by Provider: 03/04/25 18:06
History of Present Illness
History of Present Illness:
39-year-old female with history of metastatic breast cancer with recent chemotherapy treatment and paracentesis presents with fatigue and shortness of breath. She has a history of anemia and she was due for her transfusion in 3 days feels as though
she cannot wait because of her symptoms from her anemia. She was told that her hemoglobin was low and was advised to come here. No chest pain. No other complaint
Past History
Past History
ED Past Medical History: Cancer (Rectal CA, Left breast CA, Mets to liver ) and Other (Ovarian cysts,Headaches, IBS, UTI, )
ED Past Surgical History: Appendectomy, Bowel resection (Colostomy with reversal, Colon resection) and Gynecological (Ovarian cyst rupture, Hyserectomy)
Social History
Tobacco: Non-smoker
Alcohol: None
Drug: None
Personal:
Living: with family
Employment: Employed
Family History
Family History: Negative Hypertension or CAD
Phy Exam
Physical Exam
Physical Exam:
General: Cachectic, chronically ill female no acute respiratory distress
HEENT: Normocephalic atraumatic
Heart: Regular rate and rhythm
Lungs: Clear no wheeze
Abdomen distended but soft and nontender
Extremities: Mild edema bilateral lower extremities
Skin is warm no rash
Course
Orders/Labs/Results
Orders:
Orders
03/04/25 15:46
Type And Crossmatch [Type+Screen] Urgent
Complete Blood Count/With Diff Urgent
Comprehensive Metabolic Panel Urgent
03/04/25 18:25
* Blood Bank Products Urgent
Blood Bank Products: *Packed RBC Leuko(PRBC's)
Quantity: 2
Transfuse Today: Yes
Reason: Anemia
03/04/25 23:08
Spironolactone [Aldactone] 25 mg PO NOW STA
Abnormal Lab Results
03/04/25
15:46
RBC 2.41 L 10^6/uL
(4.20-5.40)
Hgb 7.4 L g/dL
(12.0-16.0)
Hct 22.6 L %
(37.0-47.0)
MCHC 32.7 L g/dL
(33.0-37.0)
RDW 18.4 H %
(11.5-14.5)
Abs Immat Gran (auto) 0.1 H 10^3/uL
(0-0.05)
Absolute Neuts (auto) 7.5 H 10^3/uL
(1.4-6.5)
Absolute Lymphs (auto) 0.2 L 10^3/uL
(1.2-3.4)
Immature Gran % 1.1 H %
(0-0.5)
Neutrophils % 94.9 H %
(42.2-75.2)
Lymphocytes % 2.0 L %
(20.5-51.1)
Chloride 112 H mmol/L
(98-107)
Creatinine 0.3 L mg/dL
(0.6-1.0)
Glucose 139 H mg/dl
(70-99)
AST 81 H U/L
(14-36)
Alkaline Phosphatase 1069 H U/L
(38-126)
Total Protein 5.1 L g/dl
(6.3-8.2)
Albumin 2.7 L g/dl
(3.5-5.0)
Antibody Screen Positive A
(Negative)
Crossmatch IS Only See Detail
MTS Gel Crossmatch See Detail
03/04/25 15:46
03/04/25 15:46
Vital Signs
Initial and Last Documented VS:
Initial Vital Signs
Temp Pulse Resp Pulse Ox
98.7 F 96 18 98
03/04/25 15:34 03/04/25 15:34 03/04/25 15:34 03/04/25 15:34
Last Documented Vital Signs
Temp Pulse Resp BP Pulse Ox
98.2 F 74 17 109/68 98
03/05/25 02:58 03/05/25 02:58 03/05/25 02:58 03/05/25 02:58 03/05/25 02:58
MDM/Problems Addressed
Differential Diagnosis Includes:
Patient fatigued and short of breath similar to what she is felt in the past with her anemia being low. Today hemoglobin is 7.4. Her baseline is somewhere between 8 and 9. She had paracentesis today however it did not help her short breath.
There is no chest pain. No dark stools. Will treat patient with blood transfusion here and have her follow-up with her oncologist
*Pulse Oximetry
SaO2: 98
Oxygen Mode of Delivery: Room air
Patient hypoxic: no
*Critical Care Note
Total Time (30-74mins, 75-104mins- exclusive of procedures): Not Applicable
ED Attending Note
-
Portions of this chart may have been created with voice recognition software.� Occasional wrong word or��sound alike� substitutions may have occurred due to the inherent limitations of voice recognition software.
Discharge Plan
Departure
Patient Disposition: Home (Routine Discharge)
Date of Disposition: 03/05/25
Time of Disposition: 01:23
Patient with high blood pressure during this ER visit?: No
Discharge Problem:
Anemia
Instructions: Anemia in adults, possibly from low iron - ED discharge instructions
Prescriptions:
No Action
gabapentin 300 mg Capsule
300 mg PO TIDPRN PRN (Reason: mild pain)
sennosides [senna] 8.6 mg Tablet
8.6 mg PO BIDPRN PRN (Reason: constipation)
therapeutic multivitamin Tablet
1 tab PO DAILY
prochlorperazine maleate [Compazine] 10 mg Tablet
10 mg PO Q8HPRN PRN (Reason: nausea)
naproxen sodium [Aleve] 220 mg Tablet
440 mg PO HS
hydromorphone 4 mg Tablet
4 mg PO TIDPRN PRN (Reason: severe pain)
fentanyl 12 mcg/hr Patch 72 Hour
1 patch TRANSDERMAL Q72H
Rx Instructions:
change on 03/04/25
ibuprofen 200 mg Tablet
400 mg PO BIDPRN PRN (Reason: mild pain)
loratadine [Claritin] 10 mg Tablet
10 mg PO DIRECTED
Rx Instructions:
take during chemo treatments
olanzapine 5 mg Tablet,Disintegrating
5 mg PO HS
cyclobenzaprine 5 mg Tablet
5 mg PO Q8HPRN PRN (Reason: muscle spasms)
spironolactone 25 mg Tablet
25 mg PO BID
acetaminophen [Tylenol] 325 mg Tablet
650 mg PO Q6HPRN PRN (Reason: mild pain)
sumatriptan succinate [Imitrex] 100 mg Tablet
0 mg PO .COMPLEX
Rx Instructions:
take 1 tab at onset of headache; if no relief, may repeat 1 tab after at least 2 hrs; max = 2 tabs/24 hrs
bisacodyl [Dulcolax (bisacodyl)] 10 mg Suppository
10 mg NE DAILYPRN PRN (Reason: constipation)
docusate sodium [Colace] 100 mg Capsule
300 mg PO DAILYPRN PRN (Reason: constipation)
Referrals:
Vignesh Kraus MD [Family Provider, Family Practice]
Activity Restrictions/Additional Instructions:
Return here for worsening symptoms. Follow-up with your doctor otherwise
Interventions
Interventions:
*Risk Screen - Suicide Last Done: 03/04/25 15:34
*General Assessment Last Done: 03/04/25 15:34
*Neglect/Abuse Screening Last Done: 03/04/25 19:34
*ED- Fall Risk Assessment Last Done: 03/04/25 18:23
*ED COVID-19 Vaccine History Last Done: 03/04/25 18:23
*Nursing Disposition Last Done: 03/05/25 03:22
Discharge Date and Time
Discharge Date/Time: 03/05/25 03:22
Print Language: LUXEMBOURGISH
[2025-03-04] MEDS: ALDACTONE 25 MG PO (23:39)
[2025-03-05] VITALS (7 sets, daily range): BP systolic 94–111; BP diastolic 55–81
== END 2025-03-05 03:22 | disposition home or self-care (01) ==
LOC: EMR 15:32
PROVIDERS: EMERGENCY PHYSICIAN Student in an Organized Health Care Education/Training Program; FAMILY PHYSICIAN Family Medicine
DX: D64.9 Anemia, unspecified (principal); Z85.3 Personal history of malignant neoplasm of breast
CPT/HCPCS: 36430; 80053; 85025; 86850; 86870; 86900; 86901; 86920; 86922; 99285; P9016

== ENCOUNTER 2025-03-07 15:34 | Outpatient (RCR) | payer OTHER, SELFPAY ==
[2025-03-07 15:40] LABS: Hematocrit 29.4 % (37.0-47.0); Mean Corp Hgb Conc. 33.3 g/dL (33.0-37.0); Mean Corpuscular Volume 93.0 fL (81.0-99.0); Platelet Count 246 10^3/uL (130-400); Red Cell Dist. Width 17.6 % (11.5-14.5)
[2025-03-07 15:43] LABS: Hemoglobin 9.8 g/dL (12.0-16.0)
[2025-03-07 16:10] LABS: ALT (SGPT) 35 U/L (0-35); AST (SGOT) 92 U/L (14-36); Albumin 2.7 g/dl (3.5-5.0); Alkaline Phosphatase 1109 U/L (38-126); Blood Urea Nitrogen 14 mg/dl (7-17); Calcium 8.3 mg/dl (8.4-10.2); Carbon Dioxide 24 mmol/L (22-30); Chloride 108 mmol/L (98-107); Glucose 109 mg/dl (70-99); Potassium 3.8 mmol/L (3.5-5.1); Sodium 134 mmol/L (135-145); Total Protein 5.1 g/dl (6.3-8.2); eGFR > 60.00
== END 2025-03-27 23:59 | disposition home or self-care (01) ==
LOC: OID 15:34
PROVIDERS: ATTENDING PHYSICIAN Internal Medicine Hematology & Oncology
DX: C20 Malignant neoplasm of rectum (principal); C78.5 Secondary malignant neoplasm of large intestine and rectum; C78.7 Secondary malignant neoplasm of liver and intrahepatic bile duct; C50.912 Malignant neoplasm of unspecified site of left female breast; C79.51 Secondary malignant neoplasm of bone; C78.00 Secondary malignant neoplasm of unspecified lung; Z17.0 Estrogen receptor positive status [ER+]
CPT/HCPCS: 80053; 85025

== ENCOUNTER → 2025-03-08 15:16 | Outpatient (REF) | payer OTHER, SELFPAY | LOC: RAD 15:16 | PROVIDERS: ATTENDING PHYSICIAN Nurse Practitioner Adult Health; FAMILY PHYSICIAN Family Medicine | DX: C20 Malignant neoplasm of rectum (principal); D50.9 Iron deficiency anemia, unspecified; C50.912 Malignant neoplasm of unspecified site of left female breast; C78.7 Secondary malignant neoplasm of liver and intrahepatic bile duct; C79.51 Secondary malignant neoplasm of bone; C78.00 Secondary malignant neoplasm of unspecified lung; R60.0 Localized edema; I89.0 Lymphedema, not elsewhere classified | CPT/HCPCS: 71046 ==

== ENCOUNTER → 2025-03-09 09:33 | Outpatient (REF) | payer OTHER, SELFPAY ==
[2025-03-09 09:44] VITALS: BP 112/76; BP_SYST 91
[2025-03-09 10:23] VITALS: BP 100/58
[2025-03-09 11:22] LABS: Body Fluid Second Tech CMB
== END ==
LOC: RADI 09:33
PROVIDERS: ATTENDING PHYSICIAN Nurse Practitioner Adult Health; FAMILY PHYSICIAN Family Medicine
DX: C80.1 Malignant (primary) neoplasm, unspecified (principal); R18.0 Malignant ascites
CPT/HCPCS: 49083; 89051

== ENCOUNTER → 2025-03-14 09:38 | Outpatient (REF) | payer OTHER, SELFPAY | LOC: PET 09:38 | PROVIDERS: ATTENDING PHYSICIAN Internal Medicine Hematology & Oncology | DX: C20 Malignant neoplasm of rectum (principal); C50.912 Malignant neoplasm of unspecified site of left female breast | CPT/HCPCS: 78815; A9552 ==

== ENCOUNTER → 2025-03-14 11:22 | Outpatient (REF) | payer OTHER, SELFPAY ==
[2025-03-14 11:30] VITALS: BP 113/73; BP_SYST 89
== END ==
LOC: RADI 11:22
PROVIDERS: ATTENDING PHYSICIAN Nurse Practitioner Adult Health
DX: C80.1 Malignant (primary) neoplasm, unspecified (principal); R18.0 Malignant ascites; Z53.8 Procedure and treatment not carried out for other reasons
CPT/HCPCS: 76705

== ENCOUNTER → 2025-03-17 11:25 | Outpatient (REF) | payer OTHER, SELFPAY ==
[2025-03-17 12:41] LABS: Hematocrit 27.7 % (37.0-47.0); Hemoglobin 8.9 g/dL (12.0-16.0); Mean Corp Hgb Conc. 32.1 g/dL (33.0-37.0); Mean Corpuscular Volume 95.5 fL (81.0-99.0); Nucleated Red Blood Cells % 0.1 %; Platelet Count 201 10^3/uL (130-400); Red Cell Dist. Width 18.2 % (11.5-14.5)
[2025-03-17 12:59] LABS: ALT (SGPT) 81 U/L (0-35); AST (SGOT) 144 U/L (14-36); Albumin 2.8 g/dl (3.5-5.0); Alkaline Phosphatase 1045 U/L (38-126); Blood Urea Nitrogen 12 mg/dl (7-17); Calcium 8.5 mg/dl (8.4-10.2); Carbon Dioxide 23 mmol/L (22-30); Chloride 109 mmol/L (98-107); Glucose 78 mg/dl (70-99); Potassium 4.2 mmol/L (3.5-5.1); Sodium 136 mmol/L (135-145); Total Protein 5.3 g/dl (6.3-8.2); eGFR > 60.00
== END ==
LOC: REG 11:25
PROVIDERS: ATTENDING PHYSICIAN Internal Medicine Hematology & Oncology; FAMILY PHYSICIAN Family Medicine
DX: C20 Malignant neoplasm of rectum (principal); D50.9 Iron deficiency anemia, unspecified; C50.912 Malignant neoplasm of unspecified site of left female breast; C78.7 Secondary malignant neoplasm of liver and intrahepatic bile duct; C79.51 Secondary malignant neoplasm of bone; C78.00 Secondary malignant neoplasm of unspecified lung
CPT/HCPCS: 36415; 80053; 85025

== ENCOUNTER → 2025-03-18 13:41 | Outpatient (REF) | payer OTHER, SELFPAY ==
[2025-03-18 13:54] VITALS: BP 111/73; BP_SYST 86
== END ==
LOC: RADI 13:41
PROVIDERS: ATTENDING PHYSICIAN Nurse Practitioner Adult Health; FAMILY PHYSICIAN Family Medicine; OTHER PHYSICIAN Internal Medicine Hematology & Oncology
DX: R18.8 Other ascites (principal); Z53.8 Procedure and treatment not carried out for other reasons
CPT/HCPCS: 76705

== ENCOUNTER → 2025-03-23 10:36 | Outpatient (REF) | payer OTHER, SELFPAY ==
[2025-03-23 11:51] LABS: Hematocrit 26.0 % (37.0-47.0); Hemoglobin 8.4 g/dL (12.0-16.0); Mean Corp Hgb Conc. 32.3 g/dL (33.0-37.0); Mean Corpuscular Volume 95.2 fL (81.0-99.0); Nucleated Red Blood Cells % 0 %; Platelet Count 194 10^3/uL (130-400); Red Cell Dist. Width 17.8 % (11.5-14.5)
[2025-03-23 12:17] LABS: ALT (SGPT) 47 U/L (0-35); AST (SGOT) 83 U/L (14-36); Albumin 2.7 g/dl (3.5-5.0); Alkaline Phosphatase 950 U/L (38-126); Blood Urea Nitrogen 14 mg/dl (7-17); Calcium 8.6 mg/dl (8.4-10.2); Carbon Dioxide 24 mmol/L (22-30); Chloride 110 mmol/L (98-107); Glucose 91 mg/dl (70-99); Potassium 3.6 mmol/L (3.5-5.1); Sodium 137 mmol/L (135-145); Total Protein 5.1 g/dl (6.3-8.2); eGFR > 60.00
== END ==
LOC: REG 10:36
PROVIDERS: ATTENDING PHYSICIAN Internal Medicine Hematology & Oncology; FAMILY PHYSICIAN Family Medicine
DX: C20 Malignant neoplasm of rectum (principal); D50.9 Iron deficiency anemia, unspecified; C50.912 Malignant neoplasm of unspecified site of left female breast; C78.7 Secondary malignant neoplasm of liver and intrahepatic bile duct; C79.51 Secondary malignant neoplasm of bone; C78.00 Secondary malignant neoplasm of unspecified lung
CPT/HCPCS: 36415; 80053; 85025

== ENCOUNTER → 2025-03-25 14:20 | Outpatient (REF) | payer OTHER, SELFPAY ==
[2025-03-25 14:40] VITALS: BP 121/76; BP_SYST 75
[2025-03-25 16:22] VITALS: BP 118/57
== END ==
LOC: RADI 14:20
PROVIDERS: ATTENDING PHYSICIAN Nurse Practitioner Adult Health; FAMILY PHYSICIAN Family Medicine
DX: J90 Pleural effusion, not elsewhere classified (principal); R18.8 Other ascites
CPT/HCPCS: 32555; 71045; 76705; 88112; 88305

== ENCOUNTER → 2025-03-31 08:35 | Outpatient (REF) | payer OTHER, SELFPAY ==
[2025-03-31 08:54] VITALS: BP 115/75; BP_SYST 96
[2025-03-31 09:37] VITALS: BP 114/84
== END ==
LOC: RADI 08:35
PROVIDERS: ATTENDING PHYSICIAN Nurse Practitioner Adult Health; FAMILY PHYSICIAN Family Medicine
DX: J90 Pleural effusion, not elsewhere classified (principal); R18.8 Other ascites
CPT/HCPCS: 32555; 71045; 76705; 88112; 88305; 88341; 88342; 88360

== ENCOUNTER → 2025-04-06 08:50 | Outpatient (REF) | payer OTHER, SELFPAY ==
[2025-04-06 09:20] VITALS: BP 124/86; BP_SYST 87
[2025-04-06 10:15] VITALS: BP 108/74; BP_SYST 80
[2025-04-06 10:37] LABS: Hematocrit 26.1 % (37.0-47.0); Hemoglobin 8.4 g/dL (12.0-16.0); Mean Corp Hgb Conc. 32.2 g/dL (33.0-37.0); Mean Corpuscular Volume 95.6 fL (81.0-99.0); Platelet Count 237 10^3/uL (130-400); Red Cell Dist. Width 18.8 % (11.5-14.5)
[2025-04-06 10:56] LABS: ALT (SGPT) 44 U/L (0-35); AST (SGOT) 84 U/L (14-36); Albumin 2.7 g/dl (3.5-5.0); Alkaline Phosphatase 796 U/L (38-126); Blood Urea Nitrogen 11 mg/dl (7-17); Calcium 8.4 mg/dl (8.4-10.2); Carbon Dioxide 25 mmol/L (22-30); Chloride 110 mmol/L (98-107); Glucose 80 mg/dl (70-99); Potassium 3.8 mmol/L (3.5-5.1); Sodium 138 mmol/L (135-145); Total Protein 5.2 g/dl (6.3-8.2); eGFR > 60.00
[2025-04-06 13:49] LABS: Nucleated Red Blood Cells % 0.2 %
== END ==
LOC: RADI 08:50
PROVIDERS: ATTENDING PHYSICIAN Internal Medicine Hematology & Oncology; FAMILY PHYSICIAN Family Medicine
DX: C20 Malignant neoplasm of rectum (principal); J91.0 Malignant pleural effusion; R18.8 Other ascites; C50.912 Malignant neoplasm of unspecified site of left female breast; C78.7 Secondary malignant neoplasm of liver and intrahepatic bile duct; C79.51 Secondary malignant neoplasm of bone; C78.00 Secondary malignant neoplasm of unspecified lung; D50.9 Iron deficiency anemia, unspecified
CPT/HCPCS: 32555; 36415; 71045; 76705; 80053; 85025; 88112; 88305

== ENCOUNTER → 2025-04-12 08:56 | Outpatient (REF) | payer OTHER, SELFPAY ==
[2025-04-12 09:10] VITALS: BP 130/75; BP_SYST 75
[2025-04-12 09:45] VITALS: BP 143/89; BP_SYST 77
[2025-04-12 11:06] LABS: Hematocrit 23.9 % (37.0-47.0); Hemoglobin 7.9 g/dL (12.0-16.0); Mean Corp Hgb Conc. 33.1 g/dL (33.0-37.0); Mean Corpuscular Volume 94.8 fL (81.0-99.0); Nucleated Red Blood Cells % 0 %; Platelet Count 174 10^3/uL (130-400); Red Cell Dist. Width 18.6 % (11.5-14.5)
[2025-04-12 11:57] LABS: ALT (SGPT) 44 U/L (0-35); AST (SGOT) 89 U/L (14-36); Albumin 2.8 g/dl (3.5-5.0); Alkaline Phosphatase 990 U/L (38-126); Blood Urea Nitrogen 16 mg/dl (7-17); Calcium 8.6 mg/dl (8.4-10.2); Carbon Dioxide 24 mmol/L (22-30); Chloride 108 mmol/L (98-107); Glucose 91 mg/dl (70-99); Potassium 3.8 mmol/L (3.5-5.1); Sodium 135 mmol/L (135-145); Total Protein 5.3 g/dl (6.3-8.2); eGFR > 60.00
== END ==
LOC: RADI 08:56
PROVIDERS: ATTENDING PHYSICIAN Nurse Practitioner Adult Health; FAMILY PHYSICIAN Family Medicine
DX: J90 Pleural effusion, not elsewhere classified (principal); C20 Malignant neoplasm of rectum; R18.0 Malignant ascites; D50.9 Iron deficiency anemia, unspecified
CPT/HCPCS: 32555; 36415; 71045; 76705; 80053; 85025

== ENCOUNTER → 2025-04-18 11:19 | Outpatient (REF) | payer OTHER, SELFPAY | LOC: RAD 11:19 | PROVIDERS: ATTENDING PHYSICIAN Internal Medicine Hematology & Oncology; FAMILY PHYSICIAN Family Medicine | DX: C20 Malignant neoplasm of rectum (principal); C50.912 Malignant neoplasm of unspecified site of left female breast | CPT/HCPCS: 71260; 74177; Q9967 ==

== ENCOUNTER → 2025-04-19 09:26 | Outpatient (REF) | payer OTHER, SELFPAY ==
[2025-04-19 09:40] VITALS: BP 121/73; BP_SYST 109
[2025-04-19 10:00] VITALS: BP 122/79
[2025-04-19 11:30] LABS: Hematocrit 20.8 % (37.0-47.0); Hemoglobin 6.8 g/dL (12.0-16.0); Mean Corp Hgb Conc. 32.7 g/dL (33.0-37.0); Mean Corpuscular Volume 94.5 fL (81.0-99.0); Platelet Count 171 10^3/uL (130-400); Red Cell Dist. Width 18.8 % (11.5-14.5)
[2025-04-19 11:41] LABS: ALT (SGPT) 42 U/L (0-35); AST (SGOT) 74 U/L (14-36); Albumin 2.7 g/dl (3.5-5.0); Alkaline Phosphatase 765 U/L (38-126); Blood Urea Nitrogen 12 mg/dl (7-17); Calcium 8.5 mg/dl (8.4-10.2); Carbon Dioxide 23 mmol/L (22-30); Chloride 105 mmol/L (98-107); Glucose 110 mg/dl (70-99); Potassium 3.8 mmol/L (3.5-5.1); Sodium 133 mmol/L (135-145); Total Protein 5.2 g/dl (6.3-8.2); eGFR > 60.00
[2025-04-19 13:44] LABS: Absolute Neutrophils -Man Diff 11.5 10^3/uL (1.4-6.5)
[2025-04-19 13:46] LABS: Normal RBC Morphology No; Platelets Checked Yes
[2025-04-19 13:48] LABS: Anisocytosis 1+; Hypochromasia 1+; Ovalocytes Slight; Polychromasia Slight; Tear Drop Red Blood Cells Slight; Total Cells Counted 100
== END ==
LOC: RADI 09:26
PROVIDERS: ATTENDING PHYSICIAN Nurse Practitioner Adult Health; FAMILY PHYSICIAN Family Medicine; REFERRING PHYSICIAN Internal Medicine Hematology & Oncology
DX: J90 Pleural effusion, not elsewhere classified (principal); C19 Malignant neoplasm of rectosigmoid junction
CPT/HCPCS: 32555; 36415; 71045; 80053; 85025; 86850; 86900; 86901

== ENCOUNTER 2025-04-21 08:36 | Outpatient (RCR) | payer OTHER, SELFPAY ==
[2025-04-21] MEDS: TYLENOL 650 MG PO (09:17)
[2025-04-21 09:28] VITALS: BP 117/70
[2025-04-21 09:47] VITALS: BP 106/65
--- NOTE | 2025-04-21 10:36 | OID.PS.NOTER ---
[facility] Social Work Note
- -
Patient known from prior care at [facility].
In [facility] today for a blood transfusion. She answered yes to the first PHQ-2 depression screening question.
She has since transferred all of her care to [facility] with the exception of palliative care which she still sees at [facility].
She continues to have wonderful support from friends and her mamadou community.
She reports her children doing well and now going to a [employer].
Reminded her of my availability for counseling/referrals.
Emotional support provided.
[2025-04-21 11:41] VITALS: BP 107/67
[2025-04-21] MEDS: BUMEX 4 MG IV (11:42)
[2025-04-21 11:56] VITALS: BP 107/67
[2025-04-21 12:17] VITALS: BP 117/79
[2025-04-21 14:18] VITALS: BP 119/75
== END 2025-04-26 23:59 | disposition home or self-care (01) ==
LOC: OID 08:36
PROVIDERS: ATTENDING PHYSICIAN Internal Medicine Hematology & Oncology; FAMILY PHYSICIAN Family Medicine
DX: C20 Malignant neoplasm of rectum (principal); C50.912 Malignant neoplasm of unspecified site of left female breast; C78.7 Secondary malignant neoplasm of liver and intrahepatic bile duct; C79.51 Secondary malignant neoplasm of bone; C78.00 Secondary malignant neoplasm of unspecified lung; Z17.0 Estrogen receptor positive status [ER+]; C78.5 Secondary malignant neoplasm of large intestine and rectum
CPT/HCPCS: 36415; 36430; 86850; 86900; 86901; 86920; 86922; 96374; P9016

== ENCOUNTER → 2025-04-26 09:27 | Outpatient (REF) | payer OTHER, SELFPAY ==
[2025-04-26 09:40] VITALS: BP 130/82; BP_SYST 99
[2025-04-26 09:55] VITALS: BP 119/82; BP_SYST 87
[2025-04-26 10:16] VITALS: BP 119/82
[2025-04-26 10:44] LABS: Hematocrit 29.1 % (37.0-47.0); Hemoglobin 9.2 g/dL (12.0-16.0); Mean Corp Hgb Conc. 31.6 g/dL (33.0-37.0); Mean Corpuscular Volume 93.3 fL (81.0-99.0); Nucleated Red Blood Cells % 0 %; Platelet Count 188 10^3/uL (130-400); Red Cell Dist. Width 19.0 % (11.5-14.5)
[2025-04-26 11:30] LABS: ALT (SGPT) 35 U/L (0-35); AST (SGOT) 79 U/L (14-36); Albumin 2.8 g/dl (3.5-5.0); Alkaline Phosphatase 973 U/L (38-126); Blood Urea Nitrogen 15 mg/dl (7-17); Calcium 8.3 mg/dl (8.4-10.2); Carbon Dioxide 24 mmol/L (22-30); Chloride 106 mmol/L (98-107); Glucose 113 mg/dl (70-99); Potassium 3.4 mmol/L (3.5-5.1); Sodium 135 mmol/L (135-145); Total Protein 5.3 g/dl (6.3-8.2); eGFR > 60.00
== END ==
LOC: RADI 09:27
PROVIDERS: ATTENDING PHYSICIAN Internal Medicine Hematology & Oncology; FAMILY PHYSICIAN Family Medicine
DX: J90 Pleural effusion, not elsewhere classified (principal); R06.02 Shortness of breath
CPT/HCPCS: 32555; 36415; 71045; 80053; 85025; 88112; 88305

== ENCOUNTER → 2025-05-03 09:37 | Outpatient (REF) | payer OTHER, SELFPAY ==
[2025-05-03 09:50] VITALS: BP 123/85; BP_SYST 101
[2025-05-03 10:10] VITALS: BP 114/76
[2025-05-03 11:30] LABS: Hematocrit 26.7 % (37.0-47.0); Hemoglobin 8.8 g/dL (12.0-16.0); Mean Corp Hgb Conc. 33.0 g/dL (33.0-37.0); Mean Corpuscular Volume 93.4 fL (81.0-99.0); Nucleated Red Blood Cells % 0 %; Platelet Count 181 10^3/uL (130-400); Red Cell Dist. Width 18.3 % (11.5-14.5)
[2025-05-03 12:07] LABS: ALT (SGPT) 37 U/L (0-35); AST (SGOT) 79 U/L (14-36); Albumin 2.8 g/dl (3.5-5.0); Alkaline Phosphatase 1129 U/L (38-126); Blood Urea Nitrogen 17 mg/dl (7-17); Calcium 8.7 mg/dl (8.4-10.2); Carbon Dioxide 24 mmol/L (22-30); Chloride 107 mmol/L (98-107); Glucose 109 mg/dl (70-99); Potassium 3.6 mmol/L (3.5-5.1); Sodium 135 mmol/L (135-145); Total Protein 5.4 g/dl (6.3-8.2); eGFR > 60.00
== END ==
LOC: RADI 09:37
PROVIDERS: ATTENDING PHYSICIAN Internal Medicine Hematology & Oncology; FAMILY PHYSICIAN Family Medicine
DX: J90 Pleural effusion, not elsewhere classified (principal)
CPT/HCPCS: 32555; 36415; 71045; 80053; 85025

== ENCOUNTER 2025-05-03 15:27 | Emergency (ER) | payer OTHER, SELFPAY ==
[2025-05-03 15:41] VITALS: BP 120/79
[2025-05-03 16:40] LABS: Hematocrit 25.6 % (37.0-47.0); Hemoglobin 8.4 g/dL (12.0-16.0); Mean Corp Hgb Conc. 32.8 g/dL (33.0-37.0); Mean Corpuscular Volume 90.8 fL (81.0-99.0); Nucleated Red Blood Cells % 0 %; Platelet Count 149 10^3/uL (130-400); Red Cell Dist. Width 18.2 % (11.5-14.5)
[2025-05-03 16:41] VITALS: BP 123/81
[2025-05-03 16:48] VITALS: BP 123/81
[2025-05-03 16:56] LABS: HCG, Serum Qualitative Screen Negative
[2025-05-03 17:00] VITALS: BP 136/83
--- NOTE | 2025-05-03 17:01 | ED.GENMED ---
History of Present Illness
General
Chief Complaint: Abdominal Symptoms
Source: patient
Exam Limitations: none
Time Seen by Provider: 05/03/25 16:43
Nursing documentation reviewed up to this point in time: agreed with
History of Present Illness
History of Present Illness:
Note:
CHIEF COMPLAINT(S)
The patient reports excessive vomiting as the main reason for the visit.
HISTORY OF PRESENT ILLNESS
The patient is a 39-year-old female who presents with excessive vomiting.
EXTERNAL RECORDS REVIEWED
The patient mentioned having been involved in a thoracentesis recently.
PHYSICAL EXAM
General: Alert, no acute distress.
Skin: Warm, dry.
Head: Normocephalic, atraumatic.
Neck: Supple, trachea midline.
Eye Ears, nose, mouth and throat: Oral mucosa moist.
Cardiovascular: Normal peripheral perfusion, No edema.
Respiratory: Respirations are non-labored.
Gastrointestinal: Abdomen non-distended, but patient reports significant nausea.
Back: Normal range of motion, Normal alignment.
Musculoskeletal: Normal range of motion, normal strength.
Neurological: Alert and oriented to person, place, time, and situation, No focal neurological deficit observed.
Psychiatric: Cooperative, appropriate mood & affect.
PROBLEM LIST
Acute:
- Nausea and vomiting
- Possible medication-related side effects
PLAN
The patient will be monitored closely for any escalations in symptoms. Depending on the persistence or worsening of nausea and vomiting, appropriate treatment options, including the potential adjustment of medications, will be considered. If the
condition does not improve, further medical evaluation and possible diagnostics may be pursued.
DIFFERENTIAL DIAGNOSIS
The Differential Diagnosis includes, in no particular order and is not limited to:
1. Gastroenteritis
2. Medication-induced vomiting
3. Gastroparesis
4. Peptic ulcer disease
5. Gastroesophageal reflux disease (GERD)
6. Migraine-associated nausea
7. Labyrinthitis
8.
9. Pancreatitis
10. Psychological factors such as anxiety or stress-induced nausea
Disposition:
SUMMARY OF ENCOUNTER
The patient, previously diagnosed with metastatic colon cancer, presented with nausea and vomiting. Upon arrival at the emergency department, intravenous fluids and ondansetron (administered as IV compazine) were provided. Following these
treatments, the patients symptoms improved. Due to the patients history of ascites and nausea attributed to underlying oncological issues, treatments focused on symptomatic relief.
DISPOSITION
Discharge.
ASSESSMENT
The patients primary issues are nausea and vomiting likely related to the known diagnosis of metastatic colon cancer and possible treatment side effects.
EMERGENCY TREATMENTS ADMINISTERED
Intravenous ondansetron (Compazine) was administered alongside 250 mL of intravenous fluids.
PLAN
The patient will follow up with both their primary care provider and oncology specialists to ensure continuity of care and address any persistent or worsening symptoms.
PATIENT EDUCATION AND COUNSELING
The patient was informed of the need to monitor symptoms closely and seek immediate medical attention if nausea or vomiting escalates. Emphasis was placed on adherence to follow-up appointments with oncology and primary care.
FOLLOW-UP INSTRUCTIONS
The patient should follow up immediately with primary care and oncology for ongoing management of their condition.
MEDICATION RECONCILIATION
Ondansetron (Compazine) was provided intravenously during the visit.
MEDICAL DECISION MAKING
- Number and Complexity of Problems Addressed: Chronic conditions affecting care include metastatic colon cancer, nausea, and vomiting.
- Data: Category 1: Tests, including external medical records regarding the patients history, were considered for review but were not explicitly mentioned during this visit.
- Risk: Prescription medication management was undertaken, and decisions regarding the patients discharge were made given the absence of acute life-threatening issues.
DIAGNOSIS
1. Nausea and vomiting - R11.2
2. Metastatic colon cancer - C78.5
Past History
Past History
ED Past Medical History: Cancer (Rectal CA, Left breast CA, Mets to liver ) and Other (Ovarian cysts,Headaches, IBS, UTI, )
ED Past Surgical History: Appendectomy, Bowel resection (Colostomy with reversal, Colon resection) and Gynecological (Ovarian cyst rupture, Hyserectomy)
Social History
Tobacco: Non-smoker
Alcohol: None
Drug: None
Personal:
Living: with family
Employment: Employed
Family History
Family History: Negative Hypertension or CAD
Phy Exam
Physical Exam
Physical Exam:
.
Course
Orders/Labs/Results
Orders:
Orders
05/03/25 16:14
Test Result ONCE
05/03/25 16:33
Complete Blood Count/With Diff Urgent
Comprehensive Metabolic Panel Urgent
HCG, Serum Qualitative Screen Urgent
Lipase Urgent
05/03/25 16:58
Prochlorperazine [Compazine] 10 mg IV NOW STA
05/03/25 17:00
Heparin Pf [Heparin Lock Flush] 500 unit IV PER PROTOCOL
05/03/25 17:15
Lactated Ringers [Lr] 500 ml IV 250 mls/hr
Abnormal Lab Results
05/03/25
16:33
RBC 2.82 L 10^6/uL
(4.20-5.40)
Hgb 8.4 L g/dL
(12.0-16.0)
Hct 25.6 L %
(37.0-47.0)
MCHC 32.8 L g/dL
(33.0-37.0)
RDW 18.2 H %
(11.5-14.5)
Absolute Neuts (auto) 8.6 H 10^3/uL
(1.4-6.5)
Absolute Lymphs (auto) 0.1 L 10^3/uL
(1.2-3.4)
Neutrophils % 95.9 H %
(42.2-75.2)
Lymphocytes % 1.6 L %
(20.5-51.1)
BUN 18 H mg/dl
(7-17)
Creatinine 0.4 L mg/dL
(0.6-1.0)
Glucose 104 H mg/dl
(70-99)
AST 76 H U/L
(14-36)
Alkaline Phosphatase 985 H U/L
(38-126)
Total Protein 5.2 L g/dl
(6.3-8.2)
Albumin 2.7 L g/dl
(3.5-5.0)
05/03/25 16:33
05/03/25 16:33
Vital Signs
Initial and Last Documented VS:
Initial Vital Signs
Temp Pulse Resp BP Pulse Ox
98.0 F 95 16 120/79 98
05/03/25 15:41 05/03/25 15:41 05/03/25 15:41 05/03/25 15:41 05/03/25 15:41
Last Documented Vital Signs
Temp Pulse Resp BP Pulse Ox
98.0 F 87 18 117/78 100
05/03/25 15:41 05/03/25 18:45 05/03/25 18:45 05/03/25 18:00 05/03/25 18:30
*Pulse Oximetry
SaO2: 100
Oxygen Mode of Delivery: Room air
Patient hypoxic: no
*Critical Care Note
Total Time (30-74mins, 75-104mins- exclusive of procedures): Not Applicable
ED Attending Note
-
Portions of this chart may have been created with voice recognition software.� Occasional wrong word or��sound alike� substitutions may have occurred due to the inherent limitations of voice recognition software.
Discharge Plan
Departure
Patient Disposition: Home (Routine Discharge)
Date of Disposition: 05/03/25
Time of Disposition: 19:26
Patient with high blood pressure during this ER visit?: No
Condition: Fair
Discharge Problem:
Vomiting, History of colon cancer, Abdominal ascites, Headache
Instructions: Nausea and Vomiting, Adult (DC), Headache in adults - ED (DC)
Prescriptions:
New
ondansetron 4 mg tablet,disintegrating
4 mg PO Q8H PRN (Reason: nausea and vomiting) 4 Days Qty: 14 0RF
No Action
gabapentin 300 mg Capsule
300 mg PO TIDPRN PRN (Reason: mild pain)
sennosides [senna] 8.6 mg Tablet
8.6 mg PO BIDPRN PRN (Reason: constipation)
therapeutic multivitamin Tablet
1 tab PO DAILY
prochlorperazine maleate [Compazine] 10 mg Tablet
10 mg PO Q8HPRN PRN (Reason: nausea)
naproxen sodium [Aleve] 220 mg Tablet
440 mg PO HS
hydromorphone 4 mg Tablet
4 mg PO TIDPRN PRN (Reason: severe pain)
fentanyl 12 mcg/hr Patch 72 Hour
1 patch TRANSDERMAL Q72H
Rx Instructions:
change on 03/04/25
ibuprofen 200 mg Tablet
400 mg PO BIDPRN PRN (Reason: mild pain)
loratadine [Claritin] 10 mg Tablet
10 mg PO DIRECTED
Rx Instructions:
take during chemo treatments
olanzapine 5 mg Tablet,Disintegrating
5 mg PO HS
cyclobenzaprine 5 mg Tablet
5 mg PO Q8HPRN PRN (Reason: muscle spasms)
spironolactone 25 mg Tablet
25 mg PO BID
acetaminophen [Tylenol] 325 mg Tablet
650 mg PO Q6HPRN PRN (Reason: mild pain)
sumatriptan succinate [Imitrex] 100 mg Tablet
0 mg PO .COMPLEX PRN (Reason: headache)
Rx Instructions:
take 1 tab at onset of headache; if no relief, may repeat 1 tab after at least 2 hrs; max = 2 tabs/24 hrs
bisacodyl [Dulcolax (bisacodyl)] 10 mg Suppository
10 mg SD DAILYPRN PRN (Reason: constipation)
Gas-X 250 mg Capsule
250 mg PO BID PRN (Reason: constipation)
Symproic 0.2 mg Tablet
0.2 mg PO DAILY
Referrals:
Vignesh Kraus MD [Family Provider, Family Practice] - Call in 1-3 days for appt
Interventions
Interventions:
*Risk Screen - Suicide Last Done: 05/03/25 15:41
*General Assessment Last Done: 05/03/25 15:41
*Neglect/Abuse Screening Last Done: 05/03/25 16:46
*ED COVID-19 Vaccine History Last Done: 05/03/25 15:41
*ED Influenza Vaccine History Last Done: 05/03/25 15:41
[id number]-Bzclueugka Assessment Last Done: 05/03/25 16:46
Discharge Date and Time
Print Language: THAI
[2025-05-03 17:08] LABS: ALT (SGPT) 35 U/L (0-35); AST (SGOT) 76 U/L (14-36); Albumin 2.7 g/dl (3.5-5.0); Alkaline Phosphatase 985 U/L (38-126); Blood Urea Nitrogen 18 mg/dl (7-17); Calcium 8.4 mg/dl (8.4-10.2); Carbon Dioxide 25 mmol/L (22-30); Chloride 106 mmol/L (98-107); Glucose 104 mg/dl (70-99); Lipase 107 U/L (23-300); Potassium 3.8 mmol/L (3.5-5.1); Sodium 135 mmol/L (135-145); Total Protein 5.2 g/dl (6.3-8.2); eGFR > 60.00
[2025-05-03] MEDS: LR 500 IV (17:10)
[2025-05-03] MEDS: COMPAZINE 10 MG IV (17:11)
[2025-05-03 18:00] VITALS: BP 117/78
[2025-05-03 19:37] VITALS: BP 121/81
== END 2025-05-03 19:55 | disposition home or self-care (01) ==
LOC: EMR 15:27
PROVIDERS: EMERGENCY PHYSICIAN Emergency Medicine; FAMILY PHYSICIAN Family Medicine
DX: R11.2 Nausea with vomiting, unspecified (principal); R18.8 Other ascites; R51.9 Headache, unspecified; C18.9 Malignant neoplasm of colon, unspecified; C78.7 Secondary malignant neoplasm of liver and intrahepatic bile duct; Z90.49 Acquired absence of other specified parts of digestive tract
CPT/HCPCS: 96374; 96361; 99284; 32555; 36415; 71045; 80053; 83690; 84703; 85025

== ENCOUNTER → 2025-05-10 09:24 | Outpatient (REF) | payer OTHER, SELFPAY ==
[2025-05-10 09:40] VITALS: BP 119/79; BP_SYST 104
[2025-05-10 10:15] VITALS: BP 109/71
== END ==
LOC: RADI 09:24
PROVIDERS: ATTENDING PHYSICIAN Internal Medicine Hematology & Oncology
DX: J90 Pleural effusion, not elsewhere classified (principal); D50.9 Iron deficiency anemia, unspecified; C20 Malignant neoplasm of rectum
CPT/HCPCS: 32555; 36415; 71045; 80053; 84439; 84443; 84480; 85025; 86850; 86900; 86901; 86902; 86920; 86922

== ENCOUNTER 2025-05-12 14:00 | Emergency (ER) | payer OTHER, SELFPAY ==
[2025-05-12 14:12] VITALS: BP 110/72
--- NOTE | 2025-05-12 15:00 | VATNOTE ---
Discussed with pt the increased risk for infection with port access/central line use. Informed pt that we could start an IV for her ED visit and that it would be a safer option for her. Pt states 'this is why I have it, I might as well use it.' Port
accessed at this time per pt request, pt aware of risks.
--- NOTE | 2025-05-12 15:10 | ED.GENMED ---
History of Present Illness
General
Chief Complaint: Abnormal Lab Value
Source: patient and spouse
Time Seen by Provider: 05/12/25 14:31
History of Present Illness
History of Present Illness:
This patient is a 39-year-old female with a history of colorectal adenocarcinoma, metastatic breast cancer, under the care of Dr[facility], who had a recent treatment. She states she has been feeling increasingly weak and
tired particular for the last couple days and was trying wait until tomorrow's appointment for a packed red blood cell transfusion. However, when she spoke to her doctor today she was referred to the emergency department due to her ongoing
symptoms. She notes that she has had an intermittent headache, but denies dyspnea, chest pain, new abdominal pain, or other complaints. She denies bleeding.
Past History
Past History
ED Past Medical History: Cancer (Rectal CA, Left breast CA, Mets to liver ) and Other (Ovarian cysts,Headaches, IBS, UTI, colorectal cancer, breast cancer)
ED Past Surgical History: Appendectomy, Bowel resection (Colostomy with reversal, Colon resection) and Gynecological (Ovarian cyst rupture, Hyserectomy)
Social History
Tobacco: Non-smoker
Alcohol: None
Drug: None
Personal:
Living: with family
Employment: Employed
Family History
Family History: Negative Hypertension or CAD
Phy Exam
Physical Exam
Physical Exam:
GENERAL: Alert , in no apparent distress, thin and tired appearing, pleasant
EYE: pupils equal and reactive, conjunctiva pale
NECK: Supple, no significant adenopathy.
ENT: o/p clr, mmm.
CARDIAC: Regular rate and rhythm .
LUNGS: Clear breath sounds bilaterally, no acute respiratory distress, no wheezes/rales/rhonchi
ABDOMEN: Soft, without focal tenderness, no r/g
NEUROLOGICAL: Alert and oriented, no focal neuro deficits
SKIN: Warm and dry, skin intact.
MUSCULOSKELETAL: tr to 1+ bilat le edema, well perfused.
PSYCH: Normal and appropriate interaction.
Course
Orders/Labs/Results
Orders:
Orders
05/12/25 14:54
CMP [Comprehensive Metabolic Panel] Urgent
Complete Blood Count/With Diff Urgent
Manual Differential Urgent
05/12/25 15:15
Type+Screen Urgent
BBK Wristband Number:
05/12/25 15:17
* Blood Bank Products Routine
Blood Bank Products: *Packed RBC Leuko (PRBC's
Quantity: 1
Transfuse Today: Yes
Reason: Anemia
IV Insert/Care/Rem.- Treatment PRN
Abnormal Lab Results
05/12/25 05/12/25
14:54 15:15
WBC 13.7 H 10^3/uL
(4.8-10.8)
RBC 2.47 L 10^6/uL
(4.20-5.40)
Hgb 7.8 L g/dL
(12.0-16.0)
Hct 23.1 L %
(37.0-47.0)
MCH 31.6 H pg
(27.0-31.0)
RDW 18.6 H %
(11.5-14.5)
Abs Neuts (Manual) 12.1 H 10^3/uL
(1.4-6.5)
Segmented Neutrophils 77 H %
(42-75)
Band Neutrophils 12 H %
(0-3)
Lymphocytes (Manual) 2 L %
(20-51)
Sodium 134 L mmol/L
(135-145)
Potassium 3.3 L mmol/L
(3.5-5.1)
Creatinine 0.5 L mg/dL
(0.6-1.0)
AST 54 H U/L
(14-36)
Alkaline Phosphatase 832 H U/L
(38-126)
Total Protein 5.1 L g/dl
(6.3-8.2)
Albumin 2.6 L g/dl
(3.5-5.0)
Crossmatch IS Only See Detail
MTS Gel Crossmatch See Detail
05/12/25 14:54
05/12/25 14:54
Vital Signs
Initial and Last Documented VS:
Initial Vital Signs
Pulse Resp BP Pulse Ox
114 18 110/72 99
05/12/25 14:12 05/12/25 14:12 05/12/25 14:12 05/12/25 14:12
Last Documented Vital Signs
Temp Pulse Resp BP Pulse Ox
98.9 F 111 20 130/75 98
05/12/25 18:29 05/12/25 18:29 05/12/25 18:29 05/12/25 18:29 05/12/25 18:29
*Pulse Oximetry
SaO2: 99
Oxygen Mode of Delivery: Room air
Patient hypoxic: no
*Critical Care Note
Total Time (30-74mins, 75-104mins- exclusive of procedures): Not Applicable
Update Note
Update Note:
Patient presents to the Emergency Department with weakness
Number and Complexity of Problems Addressed at the Encounter
� Chronic conditions affecting care:
� Acute Exacerbation and/or Progression of Chronic Illness:
� Differential Diagnosis includes: But not limited to cancer treatment reaction, anemia, electrolyte disorder, etc. etc.
Amount and/or Complexity of Data to be Reviewed and Analyzed
� I performed an independent evaluation of and my interpretation is:
EKG:
CT:
Xrays:
Laboratory Studies: Hemoglobin from 2 days ago noted to be 7.3
Other:
� Review of other/old records reveals:
� Clinical information was obtained by an independent historian: who is bedside, he described OID appt tomorrow and will cancel for her
� Prescriptions/Medications Considered but not given:
� Further testing considered but not performed:
Risk of Complications and/or Morbidity or Mortality of Patient Management
� Social determinants of health affecting care:
� Discussion with other providers (PCP, Hospitalists, Consultants, etc):
� Escalation of care including admission/observation vs risk of discharge considered: Case discussed with Dr. Edge regarding this patient's presentation and most recent hemoglobin level as of 2 days ago. Recommends 1 unit if
hemoglobin is equal to or greater than 7. Type and cross has been ordered, will obtain consent and proceed with transfusion.
ED Attending Note
-
Portions of this chart may have been created with voice recognition software.� Occasional wrong word or��sound alike� substitutions may have occurred due to the inherent limitations of voice recognition software.
Discharge Plan
Departure
Patient Disposition: Home (Routine Discharge)
Date of Disposition: 05/12/25
Time of Disposition: 20:43
Patient with high blood pressure during this ER visit?: Yes
Condition: Good
Discharge Problem:
Anemia
Instructions: Anemia overview, BLOOD PRESSURE
Prescriptions:
No Action
gabapentin 300 mg Capsule
300 mg PO TIDPRN PRN (Reason: mild pain)
sennosides [senna] 8.6 mg Tablet
8.6 mg PO BIDPRN PRN (Reason: constipation)
therapeutic multivitamin Tablet
1 tab PO DAILY
prochlorperazine maleate [Compazine] 10 mg Tablet
10 mg PO Q8HPRN PRN (Reason: nausea)
naproxen sodium [Aleve] 220 mg Tablet
440 mg PO HS
hydromorphone 4 mg Tablet
4 mg PO TIDPRN PRN (Reason: severe pain)
fentanyl 12 mcg/hr Patch 72 Hour
1 patch TRANSDERMAL Q72H
Rx Instructions:
change on 03/04/25
ibuprofen 200 mg Tablet
400 mg PO BIDPRN PRN (Reason: mild pain)
loratadine [Claritin] 10 mg Tablet
10 mg PO DIRECTED
Rx Instructions:
take during chemo treatments
olanzapine 5 mg Tablet,Disintegrating
5 mg PO HS
cyclobenzaprine 5 mg Tablet
5 mg PO Q8HPRN PRN (Reason: muscle spasms)
spironolactone 25 mg Tablet
25 mg PO BID
acetaminophen [Tylenol] 325 mg Tablet
650 mg PO Q6HPRN PRN (Reason: mild pain)
sumatriptan succinate [Imitrex] 100 mg Tablet
0 mg PO .COMPLEX PRN (Reason: headache)
Rx Instructions:
take 1 tab at onset of headache; if no relief, may repeat 1 tab after at least 2 hrs; max = 2 tabs/24 hrs
bisacodyl [Dulcolax (bisacodyl)] 10 mg Suppository
10 mg NE DAILYPRN PRN (Reason: constipation)
Gas-X 250 mg Capsule
250 mg PO BID PRN (Reason: constipation)
Symproic 0.2 mg Tablet
0.2 mg PO DAILY
ondansetron 4 mg tablet,disintegrating
4 mg PO Q8H PRN (Reason: nausea and vomiting) 4 Days Qty: 14 0RF
Referrals:
Vignesh Kraus MD [Family Provider, Family Practice]
Traci Elizalde, DO [Active, Hematology / Oncology] - Tomorrow
Activity Restrictions/Additional Instructions:
IF YOU DEVELOP FEVER, CHEST PAIN, SHORTNESS OF BREATH, BLEEDING, OR OTHER WORRISOME SIGNS, PLEASE RETURN TO THE ER IMMEDIATELY
Interventions
Interventions:
*Risk Screen - Suicide Last Done: 05/12/25 14:12
*General Assessment Last Done: 05/12/25 14:12
*ED- Fall Risk Assessment Last Done: 05/12/25 14:12
*ED COVID-19 Vaccine History Last Done: 05/12/25 14:12
*ED Influenza Vaccine History Last Done: 05/12/25 14:12
Discharge Date and Time
Print Language: ZAMBIAN
[2025-05-12 15:24] VITALS: BMI 18.2
[2025-05-12 15:26] VITALS: BP 137/65
[2025-05-12 15:46] LABS: ALT (SGPT) 28 U/L (0-35); AST (SGOT) 54 U/L (14-36); Albumin 2.6 g/dl (3.5-5.0); Alkaline Phosphatase 832 U/L (38-126); Blood Urea Nitrogen 13 mg/dl (7-17); Calcium 9.1 mg/dl (8.4-10.2); Carbon Dioxide 29 mmol/L (22-30); Chloride 102 mmol/L (98-107); Estimated Creatinine Clearance 100 ml/min; Glucose 90 mg/dl (70-99); Potassium 3.3 mmol/L (3.5-5.1); Sodium 134 mmol/L (135-145); Total Protein 5.1 g/dl (6.3-8.2); eGFR > 60.00
[2025-05-12 15:58] LABS: Hematocrit 23.1 % (37.0-47.0); Hemoglobin 7.8 g/dL (12.0-16.0); Mean Corp Hgb Conc. 33.8 g/dL (33.0-37.0); Mean Corpuscular Volume 93.5 fL (81.0-99.0); Platelet Count 245 10^3/uL (130-400); Red Cell Dist. Width 18.6 % (11.5-14.5)
[2025-05-12 16:30] VITALS: BP 129/77
[2025-05-12 17:22] LABS: Absolute Neutrophils -Man Diff 12.1 10^3/uL (1.4-6.5); Normal RBC Morphology Yes; Platelets Checked Yes; Total Cells Counted 100
[2025-05-12 18:07] VITALS: BP 134/79
[2025-05-12 18:29] VITALS: BP 130/75
[2025-05-12 20:43] VITALS: BP 129/78
--- NOTE | 2025-05-12 20:56 | VATNOTE ---
left subq port deaccessed per protocol; brisk blood return noted prior to.
== END 2025-05-12 21:02 | disposition home or self-care (01) ==
LOC: EMR 14:00
PROVIDERS: EMERGENCY PHYSICIAN Emergency Medicine; FAMILY PHYSICIAN Family Medicine
DX: D64.9 Anemia, unspecified (principal); C50.919 Malignant neoplasm of unspecified site of unspecified female breast; C78.7 Secondary malignant neoplasm of liver and intrahepatic bile duct; Z90.49 Acquired absence of other specified parts of digestive tract; Z93.3 Colostomy status; Z85.048 Personal history of other malignant neoplasm of rectum, rectosigmoid junction, and anus
CPT/HCPCS: 99285; 36430; 80053; 85025; 86850; 86900; 86901; 86920; 86922; P9016

== ENCOUNTER → 2025-05-16 11:32 | Outpatient (REF) | payer OTHER, SELFPAY ==
[2025-05-16 12:58] LABS: Hematocrit 26.9 % (37.0-47.0); Hemoglobin 8.6 g/dL (12.0-16.0); Mean Corp Hgb Conc. 32.0 g/dL (33.0-37.0); Mean Corpuscular Volume 91.5 fL (81.0-99.0); Platelet Count 209 10^3/uL (130-400); Red Cell Dist. Width 19.3 % (11.5-14.5)
[2025-05-16 13:18] LABS: ALT (SGPT) 28 U/L (0-35); AST (SGOT) 59 U/L (14-36); Albumin 2.6 g/dl (3.5-5.0); Alkaline Phosphatase 884 U/L (38-126); Blood Urea Nitrogen 13 mg/dl (7-17); Calcium 8.2 mg/dl (8.4-10.2); Carbon Dioxide 29 mmol/L (22-30); Chloride 104 mmol/L (98-107); Glucose 82 mg/dl (70-99); Potassium 2.8 mmol/L (3.5-5.1); Sodium 137 mmol/L (135-145); Total Protein 5.1 g/dl (6.3-8.2); eGFR > 60.00
[2025-05-16 13:34] LABS: Nucleated Red Blood Cells % 0.2 %
== END ==
LOC: REG 11:32
PROVIDERS: ATTENDING PHYSICIAN Internal Medicine Hematology & Oncology; FAMILY PHYSICIAN Family Medicine
DX: C20 Malignant neoplasm of rectum (principal); D50.9 Iron deficiency anemia, unspecified; C50.912 Malignant neoplasm of unspecified site of left female breast; C78.7 Secondary malignant neoplasm of liver and intrahepatic bile duct; C79.51 Secondary malignant neoplasm of bone; C78.00 Secondary malignant neoplasm of unspecified lung; R60.0 Localized edema; I89.0 Lymphedema, not elsewhere classified
CPT/HCPCS: 36415; 80053; 85025; 86850; 86900; 86901

== ENCOUNTER → 2025-05-19 09:30 | Outpatient (REF) | payer OTHER, SELFPAY ==
[2025-05-19 09:50] VITALS: BP 117/79; BP_SYST 110
[2025-05-19 10:11] VITALS: BP 113/77
== END ==
LOC: RADI 09:30
PROVIDERS: ATTENDING PHYSICIAN Internal Medicine Hematology & Oncology; FAMILY PHYSICIAN Family Medicine
DX: J90 Pleural effusion, not elsewhere classified (principal)
CPT/HCPCS: 32555; 71045

== ENCOUNTER 2025-05-23 13:55 | Inpatient (IN) | payer OTHER, SELFPAY ==
[2025-05-23] VITALS (9 sets, daily range): BP systolic 113–130; BP diastolic 71–83
--- NOTE | 2025-05-23 08:42 | ED.GENMED ---
History of Present Illness
<Shaq Michele PA-C - Last Filed: 05/23/25 12:48>
General
Chief Complaint: Failure to Thrive
Source: patient
Exam Limitations: none
Time Seen by Provider: 05/23/25 08:26
History of Present Illness
History of Present Illness:
39-year-old female currently under treatment for metastatic cancer presents with who states the patient has been delirious not alert somnolent over the past several days. She last had a chemo treatment 3 days ago. The intake is decreased
significantly. She does routinely get paracentesis and last time was only 215 mL. concerned that maybe there is too much pain medicine on board so he was limiting that over the weekend. Patient notes abdominal and back pain. They note
consistent firmness and distention to the abdomen. No reported fever. does note a slight cough this morning. Last bowel movement was maybe 5 days ago.
Past History
<Shaq Michele PA-C - Last Filed: 05/23/25 12:48>
Past History
ED Past Medical History: Cancer (Rectal CA, Left breast CA, Mets to liver ) and Other (Ovarian cysts,Headaches, IBS, UTI, colorectal cancer, breast cancer)
ED Past Surgical History: Appendectomy, Bowel resection (Colostomy with reversal, Colon resection) and Gynecological (Ovarian cyst rupture, Hyserectomy)
Social History
Tobacco: Non-smoker
Alcohol: None
Drug: None
Personal:
Living: with family
Employment: Employed
Family History
Family History: Negative Hypertension or CAD
Phy Exam
<Shaq Michele PA-C - Last Filed: 05/23/25 12:48>
Physical Exam
Physical Exam:
General: cachectic, somnolent female no acute respiratory distress
HEENT: Normal cephalic mucosa dry
Heart: Regular rate and rhythm
Lungs: Clear no wheeze
Abdomen is firm distended diffusely tender
Extremities: Pitting edema bilateral lower extremities
Skin is warm no rash
Neurologic exam: Responds to verbal stimuli but not with sensible responses. No facial asymmetry
Course
<Shaq Michele PA-C - Last Filed: 05/23/25 12:48>
Orders/Labs/Results
Orders:
Orders
05/23/25 08:40
0.9% Sodium Chloride 1000 ml [Nss] 1,000 ml IV BOLUS
05/23/25 08:41
CR Chest Portable - 1 View Urgent
Comment:
Reason For Exam: cough
Reason Study Needs to be Portable: Patient Unstable
05/23/25 08:58
Complete Blood Count/With Diff Urgent
Manual Differential Urgent
05/23/25 09:12
Ondansetron Injectable [Zofran] 4 mg IV NOW STA
05/23/25 10:05
HYDROmorphone [Dilaudid] 1 mg IV NOW STA
05/23/25 10:21
Comprehensive Metabolic Panel Urgent
Magnesium Urgent
05/23/25 11:52
Bladder Scan- Treatment ONCE
05/23/25 12:15
Urinalysis Reflex To Culture Urgent
Date Specimen was Collected: 05/23/25
Time Specimen was Collected: 12:13
Urine Microscopic Reflex Cult Urgent
Urine Culture Urgent
ZEYAD Source: U
Specimen Description:
Date Specimen was Collected: 05/23/25
Time Specimen was Collected: 12:13
05/23/25 13:37
Admit/Transfer Patient As Directed
Co-Sign Provider:
Level of Care: Inpatient admission
Assign to:: Inpatient Hospice
Physician / Group: Sameer
Diagnosis: Metastatic Breast Cancer
Reason for Hospitalization: hydromorphone infusion
Expected length of stay greater than two midnights?: Yes
ELOS- Estimated Length of Stay in days: 3
I certify the patient meets the requirements for IP care: Yes
Code Status As Directed
Resuscitation Status: Do not resuscitate
Reached after discussion with pt or family/Healthcare POA: Yes
05/23/25 13:41
DNR Bracelet Application ONCE
05/23/25 13:44
PRN Pain Medication Management As Directed
May give lesser potent ordered pain med per pt: Yes
preference::
Protocol:: Medication orders for pain may be administered in a
manner that supports deferring to patient preference
when the pt is:
- Requesting an ordered lesser potent pain medication.
Least to most potent pain medications are defined
as: acetaminophen < NSAID < tramadol < opioids
(morphine, oxycodone, hydromorphone).
- Requesting a lesser dose of the same medication IF
ORDERED.
- Requesting a less intrusive route of administration
if both routes are prescribed by the provider (PO <
IV).
05/23/25 13:51
Case Management Consult ONCE
Case Management Consult: Hospice
Hospice: Evaluation and treat
05/23/25 13:53
Ondansetron Injectable [Zofran] 4 mg IV NOW STA
Abnormal Lab Results
05/23/25 05/23/25 05/23/25
08:58 10:21 12:15
WBC 3.8 L 10^3/uL
(4.8-10.8)
RBC 2.63 L 10^6/uL
(4.20-5.40)
Hgb 8.0 L g/dL
(12.0-16.0)
Hct 24.5 L %
(37.0-47.0)
MCHC 32.7 L g/dL
(33.0-37.0)
RDW 19.2 H %
(11.5-14.5)
Plt Count 116 L D 10^3/uL
(130-400)
Segmented Neutrophils 86 H %
(42-75)
Band Neutrophils 11 H %
(0-3)
Lymphocytes (Manual) 2 L %
(20-51)
Monocytes (Manual) 1 L %
(2-9)
Chloride 108 H mmol/L
(98-107)
BUN 46 H mg/dl
(7-17)
Glucose 103 H mg/dl
(70-99)
Calcium 7.8 L mg/dl
(8.4-10.2)
Magnesium 2.7 H mg/dl
(1.6-2.3)
AST 63 H U/L
(14-36)
Alkaline Phosphatase 467 H U/L
(38-126)
Total Protein 4.9 L g/dl
(6.3-8.2)
Albumin 2.5 L g/dl
(3.5-5.0)
Urine Ketones 2+ A
(Negative)
Urine Bilirubin 1+ A
(Negative)
Leukocyte Esterase Rfl 1+ A
(Negative)
Urine Albumin (Reflex) 1+ A
(Neg - Trace)
05/23/25 08:58
05/23/25 10:21
Vital Signs
Initial and Last Documented VS:
Initial Vital Signs
Temp Pulse Resp BP Pulse Ox
98.7 F 103 14 116/82 95
05/23/25 08:23 05/23/25 08:23 05/23/25 08:23 05/23/25 08:23 05/23/25 08:23
Last Documented Vital Signs
Temp Pulse Resp BP Pulse Ox
98.7 F 109 14 128/80 100
05/23/25 08:23 05/23/25 14:00 05/23/25 08:23 05/23/25 14:00 05/23/25 13:30
<Vignesh Manzano, DO - Last Filed: 05/23/25 15:15>
Orders/Labs/Results
Orders:
Orders
05/23/25 08:40
0.9% Sodium Chloride 1000 ml [Nss] 1,000 ml IV BOLUS
05/23/25 08:41
CR Chest Portable - 1 View Urgent
Comment:
Reason For Exam: cough
Reason Study Needs to be Portable: Patient Unstable
05/23/25 08:58
Complete Blood Count/With Diff Urgent
Manual Differential Urgent
05/23/25 09:12
Ondansetron Injectable [Zofran] 4 mg IV NOW STA
05/23/25 10:05
HYDROmorphone [Dilaudid] 1 mg IV NOW STA
05/23/25 10:21
Comprehensive Metabolic Panel Urgent
Magnesium Urgent
05/23/25 11:52
Bladder Scan- Treatment ONCE
05/23/25 12:15
Urinalysis Reflex To Culture Urgent
Date Specimen was Collected: 05/23/25
Time Specimen was Collected: 12:13
Urine Microscopic Reflex Cult Urgent
Urine Culture Urgent
ZEYAD Source: U
Specimen Description:
Date Specimen was Collected: 05/23/25
Time Specimen was Collected: 12:13
05/23/25 13:37
Admit/Transfer Patient As Directed
Co-Sign Provider:
Level of Care: Inpatient admission
Assign to:: Inpatient Hospice
Physician / Group: Sameer
Diagnosis: Metastatic Breast Cancer
Reason for Hospitalization: hydromorphone infusion
Expected length of stay greater than two midnights?: Yes
ELOS- Estimated Length of Stay in days: 3
I certify the patient meets the requirements for IP care: Yes
Code Status As Directed
Resuscitation Status: Do not resuscitate
Reached after discussion with pt or family/Healthcare POA: Yes
05/23/25 13:41
DNR Bracelet Application ONCE
05/23/25 13:44
PRN Pain Medication Management As Directed
May give lesser potent ordered pain med per pt: Yes
preference::
Protocol:: Medication orders for pain may be administered in a
manner that supports deferring to patient preference
when the pt is:
- Requesting an ordered lesser potent pain medication.
Least to most potent pain medications are defined
as: acetaminophen < NSAID < tramadol < opioids
(morphine, oxycodone, hydromorphone).
- Requesting a lesser dose of the same medication IF
ORDERED.
- Requesting a less intrusive route of administration
if both routes are prescribed by the provider (PO <
IV).
05/23/25 13:51
Case Management Consult ONCE
Case Management Consult: Hospice
Hospice: Evaluation and treat
05/23/25 13:53
Ondansetron Injectable [Zofran] 4 mg IV NOW STA
Abnormal Lab Results
05/23/25 05/23/25 05/23/25
08:58 10:21 12:15
WBC 3.8 L 10^3/uL
(4.8-10.8)
RBC 2.63 L 10^6/uL
(4.20-5.40)
Hgb 8.0 L g/dL
(12.0-16.0)
Hct 24.5 L %
(37.0-47.0)
MCHC 32.7 L g/dL
(33.0-37.0)
RDW 19.2 H %
(11.5-14.5)
Plt Count 116 L D 10^3/uL
(130-400)
Segmented Neutrophils 86 H %
(42-75)
Band Neutrophils 11 H %
(0-3)
Lymphocytes (Manual) 2 L %
(20-51)
Monocytes (Manual) 1 L %
(2-9)
Chloride 108 H mmol/L
(98-107)
BUN 46 H mg/dl
(7-17)
Glucose 103 H mg/dl
(70-99)
Calcium 7.8 L mg/dl
(8.4-10.2)
Magnesium 2.7 H mg/dl
(1.6-2.3)
AST 63 H U/L
(14-36)
Alkaline Phosphatase 467 H U/L
(38-126)
Total Protein 4.9 L g/dl
(6.3-8.2)
Albumin 2.5 L g/dl
(3.5-5.0)
Urine Ketones 2+ A
(Negative)
Urine Bilirubin 1+ A
(Negative)
Leukocyte Esterase Rfl 1+ A
(Negative)
Urine Albumin (Reflex) 1+ A
(Neg - Trace)
05/23/25 08:58
05/23/25 10:21
Vital Signs
Initial and Last Documented VS:
Initial Vital Signs
Temp Pulse Resp BP Pulse Ox
98.7 F 103 14 116/82 95
05/23/25 08:23 05/23/25 08:23 05/23/25 08:23 05/23/25 08:23 05/23/25 08:23
Last Documented Vital Signs
Temp Pulse Resp BP Pulse Ox
98.7 F 109 14 128/80 100
05/23/25 08:23 05/23/25 14:00 05/23/25 08:23 05/23/25 14:00 05/23/25 13:30
<Shaq Michele PA-C - Last Filed: 05/23/25 12:48>
MDM/Problems Addressed
Differential Diagnosis Includes:
Patient declining over the past several days cognitively and physically. There has been a lack of intake over the past several days. concerned about dehydration. Last chemo treatment was 3 days ago. Will check labs access port and
hydrate. Chest x-ray pending secondary to the reported cough
<Shaq Michele PA-C - Last Filed: 05/23/25 12:48>
*Pulse Oximetry
SaO2: 95
Oxygen Mode of Delivery: Room air
Patient hypoxic: no
*Critical Care Note
Total Time (30-74mins, 75-104mins- exclusive of procedures): Not Applicable
<Shaq Michele PA-C - Last Filed: 05/23/25 12:48>
Update Note
Update Note:
After several discussions with and patient mostly the . inquired about hospice care. Hospice was consult. They were down to see the patient and talk to the . It was decided that the preferred for her to be
on inpatient hospice at this time. Workup here shows stable findings. Offered CT of abdomen secondary to the distention and firmness of the abdomen however states this is chronic. He declined at this time. I suspect most symptoms are
results of the progression of her underlying disease. Patient will be admitted to inpatient hospice.
ED Attending Note
<Shaq Michele PA-C - Last Filed: 05/23/25 12:48>
-
Portions of this chart may have been created with voice recognition software.� Occasional wrong word or��sound alike� substitutions may have occurred due to the inherent limitations of voice recognition software.
<Vignesh Manzano, - Last Filed: 05/23/25 15:15>
ED Attending Note
Patient seen and examined by attending physician: Yes
ED Attending Note:
I have reviewed and agree with history treatment plan by Dharmesh Michele PA-C. My exam revealed 39-year-old female chronic ill appearance, responsive with stimulation to her name. Abdomen distended and mildly tender. Urinalysis no signs of UTI.
In discussion with patient and , we will pursue inpatient hospice treatment.
Discharge Plan
Departure
Patient Disposition: Hospice - Inpatient
Date of Disposition: 05/23/25
Time of Disposition: 12:47
Discharge Problem:
Metastatic cancer
Interventions
Interventions:
*Risk Screen - Suicide Last Done: 05/23/25 08:23
*General Assessment Last Done: 05/23/25 08:23
*Neglect/Abuse Screening Last Done: 05/23/25 08:23
*ED- Fall Risk Assessment Last Done: 05/23/25 11:32
*ED COVID-19 Vaccine History Last Done: 05/23/25 10:04
*ED Influenza Vaccine History Last Done: 05/23/25 10:04
*Nursing Disposition Last Done: 05/23/25 14:14
[2025-05-23] MEDS: NSS 1000 IV (09:10)
[2025-05-23 09:12] LABS: Hematocrit 24.5 % (37.0-47.0); Hemoglobin 8.0 g/dL (12.0-16.0); Mean Corp Hgb Conc. 32.7 g/dL (33.0-37.0); Mean Corpuscular Volume 93.2 fL (81.0-99.0); Platelet Count 116 10^3/uL (130-400); Red Cell Dist. Width 19.2 % (11.5-14.5)
[2025-05-23] MEDS: ZOFRAN 4 MG IV ×2 (09:14→14:01)
[2025-05-23 09:49] LABS: Absolute Neutrophils -Man Diff 3.6 10^3/uL (1.4-6.5); Normal RBC Morphology Yes; Platelets Checked Yes; Total Cells Counted 100
[2025-05-23] MEDS: DILAUDID 1 MG IV (10:23)
--- NOTE | 2025-05-23 10:23 | VATNOTE ---
Attempted patient/family education regarding central line use. Family states 'this is why she has it' and refuses peripheral stick. During port access, family repositioning patient, re-swabbed with CHG each time family entered space of port access.
[2025-05-23 10:57] LABS: ALT (SGPT) 25 U/L (0-35); AST (SGOT) 63 U/L (14-36); Albumin 2.5 g/dl (3.5-5.0); Alkaline Phosphatase 467 U/L (38-126); Blood Urea Nitrogen 46 mg/dl (7-17); Calcium 7.8 mg/dl (8.4-10.2); Carbon Dioxide 25 mmol/L (22-30); Chloride 108 mmol/L (98-107); Glucose 103 mg/dl (70-99); Magnesium 2.7 mg/dl (1.6-2.3); Potassium 4.5 mmol/L (3.5-5.1); Sodium 139 mmol/L (135-145); Total Protein 4.9 g/dl (6.3-8.2); eGFR > 60.00
--- NOTE | 2025-05-23 11:30 | HOSPNOTE ---
Spoke with spouse and explained hospice and the philosophy. Will await insurance information and then decide on a plan. Will continue to update.
[2025-05-23 12:30] LABS: Urine Character Clear (Clear)
[2025-05-23 12:43] LABS: Urine Red Blood Cell None Seen /HPF (0-2)
--- NOTE | 2025-05-23 12:47 | HPS.HSE ---
Family Physician
<Andra Villegas PA-C - Last Filed: 05/23/25 14:00>
-
Family Physician: Vignesh Kraus
Chief Complaint
<Andra Villegas PA-C - Last Filed: 05/23/25 14:00>
-
Failure to Thrive
History of Present Illness
Patient is a 39 y/o female past medical history of metastatic breast cancer with recurrent malignant pleural effusion and malignant ascites as well as chronic cancer related pain who presents with failure to thrive. Patient is currently undergoing
chemotherapy with last treatment three days ago. Over the weekend she has experienced a significant decline. notes she has been very lethargic and her oral intake has been very poor. Due to patient's significant decline hospice was
consult and evaluated the patient in the emergency department. At this time patient meets criteria for inpatient hospice for appropriate pain control.
Medical History
<Andra Villegas PA-C - Last Filed: 05/23/25 14:00>
Past Medical History
Past Medical History: Reports Other
Additional Past Medical History:
Metastatic Breast Cancer
Hepatic Metastases
Peritoneal Carcinomatosis
Malignant Ascites
Rectosigmoid Cancer
Past Surgical History: Reports Other
Additional Past Surgical History:
Sigmoid Resection / Colostomy
Colostomy Reversal
Left Lumpectomy
Port Placement
Social History
Tobacco: Non-smoker
Alcohol: None
Drug: None
Family History
Family History: Not pertinent
Allergies / Home Medications
Allergies reflects when Allergies were last updated in [facility].
Home Medications with original date entered in [facility]
Allergy/Medication List:
Allergies
Allergy/AdvReac Type Severity Reaction Status Date / Time
fluorouracil Allergy Anaphylaxis Verified 05/23/25 08:23
furosemide (From Lasix) Allergy Itching Verified 05/23/25 08:23
paclitaxel (From Taxol) Allergy Rash Verified 05/23/25 08:23
Home Medications
gabapentin 300 mg capsule 300 mg PO TIDPRN PRN mild pain 11/25/24
hydromorphone 4 mg tablet 4 mg PO TIDPRN PRN severe pain 11/29/24
naproxen sodium 220 mg tablet (Aleve) 440 mg PO HS MILD Pain 11/29/24
prochlorperazine maleate 10 mg tablet (Compazine) 10 mg PO Q8HPRN PRN nausea 11/29/24
sennosides 8.6 mg tablet (senna) 8.6 mg PO BIDPRN PRN constipation 11/29/24
therapeutic multivitamin 1 tab PO DAILY Supplement 11/29/24
fentanyl 12 mcg/hr transdermal patch 1 patch transdermal Q72H severe Pain 01/21/25
cyclobenzaprine 5 mg tablet 5 mg PO Q8HPRN PRN muscle spasms 01/25/25
ibuprofen 200 mg tablet 400 mg PO BIDPRN PRN mild pain 01/25/25
loratadine 10 mg tablet (Claritin) 10 mg PO DIRECTED Allergies 01/25/25
olanzapine 5 mg disintegrating tablet 5 mg PO HS Mental Health/Anxiety 01/25/25
spironolactone 25 mg tablet 25 mg PO BID Fluid Retention/Swelling 02/25/25
acetaminophen 325 mg tablet (Tylenol) 650 mg PO Q6HPRN PRN mild pain 03/04/25
bisacodyl 10 mg rectal suppository (Dulcolax (bisacodyl)) 10 mg NE DAILYPRN PRN constipation 03/04/25
sumatriptan succinate 100 mg tablet (Imitrex) 0 mg PO .COMPLEX PRN headache 03/04/25
naldemedine 0.2 mg tablet (Symproic) 0.2 mg PO DAILY Constipation 04/21/25
simethicone 250 mg capsule (Gas-X) 250 mg PO BIDPRN PRN GAS PAINS 04/21/25
bumetanide 1 mg tablet 1 mg PO DAILY Fluid Retention/Swelling 05/23/25
fentanyl 25 mcg/hr transdermal patch 1 patch transdermal Q72H SEVERE PAINS 05/23/25
ondansetron 4 mg disintegrating tablet 4 mg PO Q8HPRN PRN nausea and vomiting 05/23/25
potassium chloride 20 mEq tablet,extended release 20 meq PO BID Supplement 05/23/25
Review of Systems
<Andra Villegas PA-C - Last Filed: 05/23/25 14:00>
-
Unable to obtain full review of systems at this time due to: Acuity
Physical Exam
<Andra Villegas PA-C - Last Filed: 05/23/25 14:00>
Vital Signs
Vital Signs
Temp Pulse Resp BP Pulse Ox
98.7 F 102 14 129/80 94
05/23/25 08:23 05/23/25 11:30 05/23/25 08:23 05/23/25 11:00 05/23/25 11:30
Physical Exam
General: Other (Chronically ill-appearing female in no acute distress)
HEENT: NormoCephalic and Anicteric
Respiratory: Non Labored Respirations and Decreased Breath Sounds
Cardiac: S1/S2, Regular Rhythm and Tachycardia (Slightly)
GI: Soft, Non Tender and Distended
Rectal: Deferred by Provider
Musculoskeletal: No Clubbing, No Cyanosis and Other (Bilateral Lower Extremity Edema)
Skin: Warm and Dry
Neuro: Other (Lethargic but easily arousable)
Psych: Calm
Laboratory Results
<nAdra Villegas PA-C - Last Filed: 05/23/25 14:00>
-
05/23/25 08:58
05/23/25 10:21
Laboratory Results
Total Bilirubin 1.0 mg/dl (0.2-1.3) 05/23/25 10:21
AST 63 U/L (14-36) H 05/23/25 10:21
ALT 25 U/L (0-35) 05/23/25 10:21
Alkaline Phosphatase 467 U/L (38-126) H 05/23/25 10:21
Data Reviewed
<Andra Villegas PA-C - Last Filed: 05/23/25 14:00>
-
Lab Data: Labs Reviewed by me
Old Records: Reviewed
Impression/Plan
<Andra Villegas PA-C - Last Filed: 05/23/25 14:00>
-
Metastatic Breast Cancer
Uncontrolled Pain of Malignancy
-Admit to inpatient hospice
-Continue comfort measures
-Continue fentanyl patch
-Start hydromorphone infusion
Code Status: DNR
39 years old female admitted for pain control as she failed outpatient measures for treatment of metastatic breast cancer.
Family requested comfort care measures.
Patient was evaluated by housing liaison and to sign on on inpatient hospice
Patient is arousable but very lethargic. Cachectic.
Not in respiratory distress
Failure to thrive. Significant weight loss/emaciated
Recurrent malignant pleural effusion/malignant ascites
reported that morphine did not help in the past, requested Dilaudid for pain control
<Erin Estrella MD - Last Filed: 05/23/25 14:03>
-
Metastatic Breast Cancer
Uncontrolled Pain of Malignancy
-Admit to inpatient hospice
-Continue comfort measures
-Continue fentanyl patch
-Start hydromorphone infusion
Code Status: DNR
39 years old female admitted for pain control as she failed outpatient measures for treatment of metastatic breast cancer.
Family requested comfort care measures.
Patient was evaluated by housing liaison and to sign on on inpatient hospice
Patient is arousable but very lethargic. Cachectic.
Not in respiratory distress
Failure to thrive. Significant weight loss/emaciated
Recurrent malignant pleural effusion/malignant ascites
reported that morphine did not help in the past, requested Dilaudid for pain control
Physical Exam
General: Other (Chronically ill-appearing female in no acute distress). Cachexia
HEENT: NormoCephalic and Anicteric
Respiratory: Non Labored Respirations and Decreased Breath Sounds
Cardiac: S1/S2, Regular Rhythm and Tachycardia (Slightly)
GI: Soft, Non Tender and ascites with distention
Rectal: No bleed
Musculoskeletal: No Clubbing, No Cyanosis and Other (Bilateral Lower Extremity Edema)
Skin: Warm and Dry
Neuro: Other (Lethargic but easily arousable)
Psych: Calm
A/P
Metastatic breast cancer with uncontrolled cancer pain/failure to thrive/cachexia
Recurrent malignant ascites and pleural effusion
Hypoalbuminemia with anasarca
Discussed with at bedside. Reported that she did not benefit from morphine before. Will do Dilaudid for pain control. Discussed with housing liaison. Admit to inpatient hospice per patient and request comfort care level/DNR
Total time spent to see the patient, examined the patient, review data and lab result, discuss treatment plan with patient, nursing staff, ER doctor around 75 minutes
--- NOTE | 2025-05-23 14:02 | CM ---
Received a message from Beverly requesting hospice referral be placed in [facility]. Hospice referral entered, I attempted to speak with pt and but Beverly was with them and said she would take it from here.
--- NOTE | 2025-05-23 15:47 | HOSPNOTE ---
Patient is admitted inpatient hospice for management of pain. Dilaudid drip was ordered. We will see patient daily.
[2025-05-23] MEDS: COMPAZINE 10 MG IV (16:01)
[2025-05-23] MEDS: DILAUDID 0.25 MG IV ×2 (16:02→19:08)
[2025-05-23] MEDS: REMOVE DURAGESIC PATCH 1 PATCH REMOVE (16:20)
[2025-05-23] MEDS: DURAGESIC 50 MCG/HR PATCH 1 PATCH TRANSDERM (16:21)
[2025-05-23] MEDS: DILAUDID 50 IV (16:35)
--- NOTE | 2025-05-23 17:18 | HOSPNOTE ---
Admitted GIP for management of pain that can not be managed in an outpatient setting. Patient was started on a Dilaudid infusion. MIL at bedside. Pt appears comfortable at this time. Hospice will visit daily
[2025-05-24] MEDS: DILAUDID 0.25 MG IV ×4 (01:04→11:57)
[2025-05-24 08:09] VITALS: BP 130/83
--- NOTE | 2025-05-24 08:58 | HOSPNOTE ---
Mangle Catcher visited 39 year old patient to conduct Initial PROJECT SAFETY MANAGER Assessment. Patient recently admitted onto Hospice Services and GIP Level of Care with the Primary Diagnosis of Metastatic Breast Cancer. Nurse reported patient comfortable and
no concerns. PROJECT SAFETY MANAGER greeted patient and patient's family members upon entering patient's room. Patient's [id number] Jared introduced himself and Patient's spouse Tushar introduced himself. PROJECT SAFETY MANAGER explained Traffic Signal Repairer role as it relates to the Hospice
Team. Patient sitting supine in her bed with her eyes close. She opened her eyes briefly and spoke to PROJECT SAFETY MANAGER, she denied pain. Spouse asked if she wanted water and swabbed her mouth several times. He sat near patient holding her hand. PROJECT SAFETY MANAGER prayed with
patient and family members. Patient minimally alert and lethargic, no signs of distress observed. Prayer and Emotional Support Provided. PROJECT SAFETY MANAGER met with Spouse briefly in the Family Room, he reported he's okay, they've been dealing with this for 8
years. He reported patient was with their youngest son when she was diagnosed. He reported the family has supports from each other and their pentecostal community. Family appeared to be coping appropriately. Patient has 2 older brothers and a
younger sister, 1 brother resides in [place] and the other brother and sister reside locally, they are managing as well as to be expected. Patient and spouse met at [facility] Friday and have been for 16 years. Patient has 2 sons Toñito
who is 12 years of age and Hunter who is 8 years of age, they are aware that patient isn't going to come home. PROJECT SAFETY MANAGER encouraged Spouse to conduct Toñito and Hunter Teachers and Counselors to make them aware and to ensure they have extra supports. He
reported he's going to email them today and that Toñito and Hunter have the supports of their Youth Pastors. 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 She loved being with her family, beaches, oceans, and visiting warm places such as [place] and she had an amazing time. She believes in [employer] L[employer]pez and is affiliated with [facility]. Her wishes are to be cremated
and ashes scattered in [facility] or [facility]. Home to be determined. Bereavement Services declined at this time. Much Emotional Support Provided
Patient meets [facility] criteria for SN assessments and management of pain that could not be managed at home and/or in an Outpatient setting. Discharge planning continues.
PROJECT SAFETY MANAGER will provide supportive services once a week while on [facility] Level of Care.
[2025-05-24] MEDS: VALIUM INJECTION 2 MG IV ×3 (09:11→17:48)
--- NOTE | 2025-05-24 09:35 | W.PN.HOSP.TC ---
Today's Communication/Plan
-
c/w IV Dilaudid gtt
PRN IV Diazepam
Assessment / Plan
Assessment / Plan
Physical Exam
General: ill-appearing female in no acute distress, cachexia
HEENT: Normocephalic , dry pale MM.
Respiratory: Non Labored Respirations and Decreased Breath Sounds
Cardiac: S1/S2, Regular Rhythm and Tachycardia (Slightly)
GI: Soft, Non Tender and Distended ( ascites)
Rectal: No bleeding.
Musculoskeletal: No Clubbing, No Cyanosis and Other (Bilateral Lower Extremity Edema, lower abdominal wall edema/ perineal edema noted, no bruising or wounds).
Skin: Warm and Dry
Neuro: Other (Lethargic but easily arousable)
Psych: Calm, no agitation.
Metastatic Breast Cancer
Recurrent malignant pleural effusion/malignant ascites
Uncontrolled Pain of Malignancy
Anemia of malignancy
Thrombocytopenia
Hypoalbuminemia
c/w care inpatient hospice
-Continue comfort measures
-Continue fentanyl patch
-Started hydromorphone infusion
Total time spent to see the patient, examined the patient, review data and lab result, discuss treatment plan with patient, family at bed side, nursing staff around 55 minutes
Anticipated Discharge: > 48 hours
Subjective/Interval History
-
Date of Service: May 24, 2025
Getting Dilaudid gtt, seem very lethargic and ill looking
Objective Data
-
Vital Signs:
Vital Signs
Temp Pulse Resp BP Pulse Ox
99.5 F 109 16 130/83 95
05/24/25 08:09 05/24/25 08:09 05/24/25 08:09 05/24/25 08:09 05/24/25 08:09
[2025-05-24] MEDS: DILAUDID 0.5 MG IV ×3 (11:58→15:01)
--- NOTE | 2025-05-24 12:11 | CM ---
CM reviewed chart
Remains on [facility] hospice service
CM will remain available for support and planning as needed
[2025-05-24] MEDS: TYLENOL/FEVERALL 650 MG RECTAL ×2 (13:26→23:30)
--- NOTE | 2025-05-24 15:07 | PTCARENOTE ---
pt now on step 3 Dilaudid infusion. (1mg/hr). periodic bolus's admin. (see mar). family at bedside.
[2025-05-24] MEDS: DILAUDID 1 MG IV ×2 (16:20→17:47)
[2025-05-24] MEDS: DILAUDID 1.5 MG IV ×2 (19:16→20:30)
[2025-05-24] MEDS: ROBINUL 0.2 MG IV (19:17)
[2025-05-24 20:41] VITALS: BP 115/73
[2025-05-25 07:35] VITALS: BP 118/74
[2025-05-25] MEDS: VALIUM INJECTION 2 MG IV (09:32)
[2025-05-25] MEDS: TYLENOL/FEVERALL 650 MG RECTAL ×3 (09:32→22:22)
--- NOTE | 2025-05-25 09:41 | W.PN.HOSP.TC ---
Today's Communication/Plan
-
c/w Dilaudid gtt
PRN Diazepam
Rectal Tylenol for fever
Assessment / Plan
Assessment / Plan
Physical Exam
General: ill-appearing female in no acute distress, cachexia, unresponsive
HEENT: Normocephalic , dry pale MM.
Respiratory: Non Labored Respirations and Decreased Breath Sounds
Cardiac: S1/S2, Regular Rhythm and Tachycardia (Slightly)
GI: Soft, Non Tender and Distended ( ascites)
Rectal: No bleeding.
Musculoskeletal: No Clubbing, No Cyanosis and Other (Bilateral Lower Extremity Edema, lower abdominal wall edema/ perineal edema noted, no bruising or wounds).
Skin: Warm and Dry
Neuro: unresponsive
Psych: Calm, no agitation.
Metastatic Breast Cancer
Recurrent malignant pleural effusion/malignant ascites
Uncontrolled Pain of Malignancy
Anemia of malignancy
Thrombocytopenia
Hypoalbuminemia
c/w care inpatient hospice
-Continue comfort measures
-Continue fentanyl patch
- Tylenol suppository for fever
-Started hydromorphone infusion gtt.
Total time spent to see the patient, examined the patient, review data and lab result, discuss treatment plan with patient, family at bed side, nursing staff around 45 minutes
Anticipated Discharge: 24 - 48 hours
Subjective/Interval History
-
Date of Service: May 25, 2025
Sedated, surrounded by family
Low grade fever
Objective Data
-
Vital Signs:
Vital Signs
Temp Pulse Resp BP Pulse Ox
100.0 F 127 16 118/74 86
05/25/25 07:35 05/25/25 07:35 05/25/25 07:35 05/25/25 07:35 05/25/25 07:35
I&O
05/24/25 05/25/25 05/26/25
06:59 06:59 06:59
Intake Total 0 / 0
Balance 0 / 0
[2025-05-25] MEDS: ROBINUL 0.2 MG IV ×3 (10:18→23:17)
--- NOTE | 2025-05-25 10:56 | HOSPNOTE ---
Patient is now on step 3 dilaudid drip. Multiple family members present. Patient is having periods of apnea and is completely unresponsive. Patient was given a full bath and turned and repositioned. Emotional support provided to family. Patient
continues to be inpatient appropriate for management of pain requiring a dilaudid drip. Patient will be seen daily.
--- NOTE | 2025-05-25 14:04 | CM ---
CM reviewed pt with hospice- remains appropriate for GIP
CM will remain available for support and planning as needed
[2025-05-25] MEDS: DILAUDID 1.5 MG IV ×2 (14:45→23:17)
[2025-05-25] MEDS: DILAUDID 50 IV (15:23)
[2025-05-25 20:19] VITALS: BP 112/71
[2025-05-26] MEDS: DILAUDID 1.5 MG IV ×2 (03:18→08:11)
[2025-05-26 07:40] VITALS: BP 115/77
[2025-05-26] MEDS: TYLENOL/FEVERALL 650 MG RECTAL (08:10)
[2025-05-26] MEDS: VALIUM INJECTION 2 MG IV (08:11)
[2025-05-26] MEDS: ROBINUL 0.2 MG IV (08:12)
--- NOTE | 2025-05-26 09:04 | W.PN.HOSP.TC ---
Today's Communication/Plan
-
.
Assessment / Plan
Assessment / Plan
Physical Exam
General: ill-appearing female in no acute distress, cachexia, unresponsive
HEENT: Normocephalic , dry pale MM.
Respiratory: Non Labored Respirations and Decreased Breath Sounds
Cardiac: S1/S2, Regular Rhythm and Tachycardia (Slightly)
GI: Soft, Non Tender and Distended ( ascites)
Rectal: No bleeding.
Musculoskeletal: No Clubbing, No Cyanosis and Other (Bilateral Lower Extremity Edema, lower abdominal wall edema/ perineal edema noted, no bruising or wounds).
Skin: Warm and Dry
Neuro: unresponsive
Psych: Calm, no agitation.
Metastatic Breast Cancer
Recurrent malignant pleural effusion/malignant ascites
Uncontrolled Pain of Malignancy
Anemia of malignancy
Thrombocytopenia
Hypoalbuminemia
c/w care inpatient hospice
-Continue comfort measures
-Continue fentanyl patch
- Tylenol suppository for fever
-Started hydromorphone infusion gtt.
Add Goode catheter for comfort
Total time spent to see the patient, examined the patient, review data and lab result, discuss treatment plan with patient, family at bed side, nursing staff around 45 minutes
Anticipated Discharge: Within 24 hours
Subjective/Interval History
-
Date of Service: May 26, 2025
Objective Data
-
Vital Signs:
Vital Signs
Temp Pulse Resp BP Pulse Ox
100.9 F H 141 16 115/77 86
05/26/25 07:40 05/26/25 07:40 05/26/25 07:40 05/26/25 07:40 05/26/25 07:40
I&O
05/25/25 05/26/25 05/27/25
06:59 06:59 06:59
Intake Total 0 / 0 0 / 0 0 / 0
Output Total 350 / 350
Balance 0 / 0 0 / 0 -350 / -350
--- NOTE | 2025-05-26 10:28 | HOSPNOTE ---
greeted Tushar outside patient room. He thanked for the presence but declined a visit with the patient.
--- NOTE | 2025-05-26 10:32 | HOSPNOTE ---
sound art instructor was greeted by patient Tushar outside her room and was very appreciatoive of Diamond Sorter presence but has declined the visit.
--- NOTE | 2025-05-26 11:42 | HOSPNOTE ---
Patient is actively dying. Family at bedside emotional support provided. Patient is on a dilaudid drip for pain management. Patient now has a lockhart catheter. Patient continues to be inpatient hospice appropriate and will be seen daily.
[2025-05-26] MEDS: DURAGESIC 50 MCG/HR PATCH 1 PATCH TRANSDERM (15:35)
[2025-05-26] MEDS: REMOVE DURAGESIC PATCH 1 PATCH REMOVE (15:35)
--- NOTE | 2025-05-26 16:11 | PTCARENOTE ---
Fentanyl patch placed on Wednesday 05/23 on LUE wasted with second RN in Pyxis per protocol, new Fentanyl patch scanned into SEP and placed on RU, witnessed by second RN. Dilaudid gtt infusing through L subq port at 1.5mg/hr per protocol - see
documentation.
[2025-05-26] MEDS: DILAUDID 50 IV (20:01)
[2025-05-26 23:00] VITALS: BP 116/72
[2025-05-27] MEDS: DILAUDID 1.5 MG IV ×4 (02:58→18:22)
[2025-05-27 07:33] VITALS: BP 116/74
[2025-05-27] MEDS: VALIUM INJECTION 2 MG IV ×2 (08:36→18:22)
--- NOTE | 2025-05-27 09:33 | W.PN.HOSP.TC ---
Today's Communication/Plan
-
.
Assessment / Plan
Assessment / Plan
Physical Exam
General: ill-appearing female in no acute distress, cachexia, unresponsive
HEENT: Normocephalic , dry pale MM.
Respiratory: Non Labored Respirations and Decreased Breath Sounds
Cardiac: S1/S2, Regular Rhythm and Tachycardia (Slightly)
GI: Soft, Non Tender and Distended ( ascites)
Rectal: No bleeding.
Musculoskeletal: No Clubbing, No Cyanosis and Other (Bilateral Lower Extremity Edema, lower abdominal wall edema/ perineal edema noted, no bruising or wounds).
Skin: Warm and Dry
Neuro: unresponsive
Psych: Calm, no agitation.
Metastatic Breast Cancer
Recurrent malignant pleural effusion/malignant ascites
Uncontrolled Pain of Malignancy
Anemia of malignancy
Thrombocytopenia
Hypoalbuminemia
c/w care inpatient hospice
-Continue comfort measures
-Continue fentanyl patch
- Tylenol suppository for fever
-Started hydromorphone infusion gtt.
Goode catheter for comfort
Total time spent to see the patient, examined the patient, review data and lab result, discuss treatment plan with patient, family at bed side, nursing staff around 45 minutes
Anticipated Discharge: 24 - 48 hours
Subjective/Interval History
-
Date of Service: May 27, 2025
Objective Data
-
Vital Signs:
Vital Signs
Temp Pulse Resp BP Pulse Ox
100.4 F H 151 14 116/74 89
05/27/25 07:33 05/27/25 07:33 05/27/25 07:33 05/27/25 07:33 05/27/25 07:33
I&O
05/26/25 05/27/25 05/28/25
06:59 06:59 06:59
Intake Total 0 / 0 0 / 0
Output Total 1650 / 1650
Balance 0 / 0 -1650 / -1650
[2025-05-27] MEDS: TYLENOL/FEVERALL 650 MG RECTAL ×2 (09:58→19:49)
--- NOTE | 2025-05-27 12:51 | HOSPNOTE ---
Patient is unresponsive, family at bedside emotional support provided. Patient continues on a dilaudid drip and appears comfortable. Patient continues to be inpatient hospice for management of pain. Patient will be seen daily. Patient is actively
dying.
[2025-05-27] MEDS: ROBINUL 0.2 MG IV (13:47)
[2025-05-27 19:50] VITALS: BP 102/64
--- NOTE | 2025-05-27 23:00 | PTCARENOTE ---
Cool compresses placed for patient's comfort.
[2025-05-27] MEDS: DILAUDID 50 IV (23:50)
[2025-05-28 07:40] VITALS: BP 92/60
[2025-05-28] MEDS: DILAUDID 1.5 MG IV ×4 (08:52→14:59)
[2025-05-28] MEDS: VALIUM INJECTION 2 MG IV ×4 (08:53→21:24)
--- NOTE | 2025-05-28 09:31 | W.PN.HOSP.TC ---
Today's Communication/Plan
-
.
Assessment / Plan
Assessment / Plan
Physical Exam
General: ill-appearing female in no acute distress, cachexia, unresponsive
HEENT: dry pale MM.
Respiratory: Labored Respirations and Decreased Breath Sounds
Cardiac: S1/S2, Regular Rhythm and Tachycardia
GI: Soft, Non Tender and Distended ( ascites)
Rectal: No bleeding.
Musculoskeletal: No Clubbing, No Cyanosis and Other (Bilateral Lower Extremity Edema, lower abdominal wall edema/ perineal edema noted, no bruising or wounds).
Skin: Warm and Dry
Neuro: unresponsive
Psych: Calm, no agitation.
Metastatic Breast Cancer
Recurrent malignant pleural effusion/malignant ascites
Uncontrolled Pain of Malignancy
Anemia of malignancy
Thrombocytopenia
Hypoalbuminemia
c/w care inpatient hospice
-Continue comfort measures
-Continue fentanyl patch
- Tylenol suppository for fever
-Started hydromorphone infusion gtt.
Goode catheter for comfort
Total time spent to see the patient, examined the patient, review data and lab result, discuss treatment plan with patient, family at bed side, nursing staff around 45 minutes
Anticipated Discharge: 24 - 48 hours
Subjective/Interval History
-
Date of Service: May 28, 2025
.
Objective Data
-
Vital Signs:
Vital Signs
Temp Pulse Resp BP Pulse Ox
99.3 F 136 18 92/60 89
05/28/25 07:40 05/28/25 07:40 05/28/25 07:40 05/28/25 07:40 05/28/25 07:40
I&O
05/27/25 05/28/25 05/29/25
06:59 06:59 05:59
Intake Total 0 / 0
Output Total 1650 / 1650 475 / 475
Balance -1650 / -1650 -475 / -385
--- NOTE | 2025-05-28 10:57 | HOSPNOTE ---
patient is unresponsive, actively dying. FLACC 0, appears comfortable. Dilauded drip at 1.5ml/hr. Several family members at bedside, much emotional support provided. Family asking what is she holding onto. Encouraged to allow patient alone time to
pass on. Discussed life expectancy is hours to days. Remains GIP for management of pain.
[2025-05-28] MEDS: ROBINUL 0.2 MG IV (12:52)
[2025-05-28] MEDS: DILAUDID 2 MG IV ×3 (15:51→20:28)
[2025-05-28] MEDS: TYLENOL/FEVERALL 650 MG RECTAL (15:52)
[2025-05-28 19:27] VITALS: BP 99/63
[2025-05-28] MEDS: DILAUDID 50 IV (20:15)
[2025-05-28] MEDS: FLUSH (NSS) 2 FLUSH IV (21:27)
[2025-05-29] MEDS: DILAUDID 2 MG IV ×5 (03:56→10:13)
[2025-05-29 07:10] VITALS: BP 60/35
[2025-05-29] MEDS: VALIUM INJECTION 5 MG IV (08:05)
--- NOTE | 2025-05-29 09:26 | W.PN.HOSP.TC ---
Today's Communication/Plan
-
.
Assessment / Plan
Assessment / Plan
Physical Exam
General: ill-appearing female in no acute distress, cachexia, unresponsive
HEENT: dry pale MM.
Respiratory: Labored Respirations and Decreased Breath Sounds
Cardiac: S1/S2, Regular Rhythm and Tachycardia
GI: Soft, Non Tender and Distended ( ascites)
Rectal: No bleeding.
Musculoskeletal: No Clubbing, No Cyanosis and Other (Bilateral Lower Extremity Edema, lower abdominal wall edema/ perineal edema noted, no bruising or wounds).
Skin: Warm and Dry
Neuro: unresponsive
Psych: Calm, no agitation.
Metastatic Breast Cancer
Recurrent malignant pleural effusion/malignant ascites
Uncontrolled Pain of Malignancy
Anemia of malignancy
Thrombocytopenia
Hypoalbuminemia
c/w care inpatient hospice
-Continue comfort measures
-Continue fentanyl patch
- Tylenol suppository for fever
-Started hydromorphone infusion gtt.
Goode catheter for comfort
Total time spent to see the patient, examined the patient, review data and lab result, discuss treatment plan with patient, family at bed side, nursing staff around 45 minutes
Anticipated Discharge: Within 24 hours
Subjective/Interval History
-
Date of Service: May 29, 2025
Sedated
Objective Data
-
Vital Signs:
Vital Signs
Temp Pulse Resp BP Pulse Ox
101.7 F H 132 16 60/35 56
05/29/25 07:10 05/29/25 07:10 05/29/25 07:10 05/29/25 07:10 05/29/25 07:10
I&O
05/28/25 05/29/25 05/30/25
06:59 05:59 06:59
Intake Total 0 / 0
Output Total 475 / 475 500 / 500
Balance -475 / -475 -500 / -500
[2025-05-29] MEDS: TYLENOL/FEVERALL 650 MG RECTAL (09:42)
[2025-05-29] MEDS: ROBINUL 0.2 MG IV (10:13)
--- NOTE | 2025-05-29 11:23 | W.PN.DEATH ---
Pronouncement of
-
Called to see patient to pronounce.
No spontaneous heart tones or respirations noted.
Patient not responsive to verbal stimuli.
Patient is pronounced .
Time of : 10:39
Date of : 05/29/25
Family Notified: Yes
--- NOTE | 2025-05-29 11:29 | W.DCSUMMARY ---
Discharge Summary
Discharge Data
Date of Admission: 05/23/25
Date of Discharge: 05/29/25
-
Pending Results: No
Hospital Course
39 years old female who was admitted to the hospital for inpatient hospice care. Patient had history of metastatic breast cancer with recurrent malignant ascites and pleural effusions. Patient family reported uncontrolled pain and discomfort.
Family was unable to care for her at home with her young children. Patient was evaluated by hospice nurse. She was admitted to inpatient hospice and received comfort medications including hydromorphone and diazepam. Patient peacefully
surrounded by her family and loved ones on May.
Discharge Plan
-
Patient Disposition:
Referrals:
Vignesh Kraus MD [Family Provider, [facility]]
Prescriptions:
No Action
gabapentin 300 mg Capsule
300 mg PO TIDPRN PRN (Reason: mild pain)
sennosides [senna] 8.6 mg Tablet
8.6 mg PO BIDPRN PRN (Reason: constipation)
therapeutic multivitamin Tablet
1 tab PO DAILY
prochlorperazine maleate [Compazine] 10 mg Tablet
10 mg PO Q8HPRN PRN (Reason: nausea)
naproxen sodium [Aleve] 220 mg Tablet
440 mg PO HS
hydromorphone 4 mg Tablet
4 mg PO TIDPRN PRN (Reason: severe pain)
fentanyl 12 mcg/hr Patch 72 Hour
1 patch TRANSDERMAL Q72H
ibuprofen 200 mg Tablet
400 mg PO BIDPRN PRN (Reason: mild pain)
loratadine [Claritin] 10 mg Tablet
10 mg PO DIRECTED
Rx Instructions:
take during chemo treatments
olanzapine 5 mg Tablet,Disintegrating
5 mg PO HS
cyclobenzaprine 5 mg Tablet
5 mg PO Q8HPRN PRN (Reason: muscle spasms)
spironolactone 25 mg Tablet
25 mg PO BID
acetaminophen [Tylenol] 325 mg Tablet
650 mg PO Q6HPRN PRN (Reason: mild pain)
sumatriptan succinate [Imitrex] 100 mg Tablet
0 mg PO .COMPLEX PRN (Reason: headache)
Rx Instructions:
take 1 tab at onset of headache; if no relief, may repeat 1 tab after at least 2 hrs; max = 2 tabs/24 hrs
bisacodyl [Dulcolax (bisacodyl)] 10 mg Suppository
10 mg [place] DAILYPRN PRN (Reason: constipation)
Gas-X 250 mg Capsule
250 mg PO BIDPRN PRN (Reason: GAS PAINS)
Symproic 0.2 mg Tablet
0.2 mg PO DAILY
bumetanide [Bumex] 1 mg Tablet
1 mg PO DAILY
fentanyl 25 mcg/hr Patch 72 Hour
1 patch TRANSDERMAL Q72H
potassium chloride 20 mEq Tablet Extended Release
20 meq PO BID
Rx Instructions:
FOR 5 DAYS STARTING 05/17/25
ondansetron 4 mg tablet,disintegrating
4 mg PO Q8HPRN PRN (Reason: nausea and vomiting)
Discharge Date and Time
Print Language: KHMER
== END 2025-05-29 10:39 | disposition expired | DRG 598 ==
LOC: 2 NORTH 13:55
PROVIDERS: Physician Assistant; ADMITTING PHYSICIAN Internal Medicine; EMERGENCY PHYSICIAN Emergency Medicine; FAMILY PHYSICIAN Family Medicine
DX: C50.912 Malignant neoplasm of unspecified site of left female breast (principal); C78.5 Secondary malignant neoplasm of large intestine and rectum; C78.6 Secondary malignant neoplasm of retroperitoneum and peritoneum; C78.7 Secondary malignant neoplasm of liver and intrahepatic bile duct; R18.0 Malignant ascites; R64 Cachexia; J91.0 Malignant pleural effusion; R62.7 Adult failure to thrive; D63.0 Anemia in neoplastic disease; Z66 Do not resuscitate; D69.6 Thrombocytopenia, unspecified; E88.09 Other disorders of plasma-protein metabolism, not elsewhere classified; Z51.5 Encounter for palliative care; Z79.899 Other long term (current) drug therapy
CPT/HCPCS: 71045; 80053; 81003; 81015; 83735; 85025; 87086; 96361; 96374; 96375; 96376; 99285